=== PATIENT | male | born 1975 | race Caucasian/White ===

== ENCOUNTER 2017-05-31 11:11 | Inpatient (IN) | payer BC ==
[~2017-05-31 11:11] MED LIST: AMIODARONE 50 MG/ML 3 ML VIAL IV ONE; DEXTROSE 5% IN WATER 50 ML BAG ONE
[2017-05-31] MEDS ORDERED: SODIUM CHLORIDE 0.9% 1,000 ML IV STA (11:15)
[2017-05-31] MEDS ORDERED: NITROGLYCERIN SL TABS 0.4 MG TAB SUBLINGUAL PRN (11:15)
[2017-05-31] MEDS ORDERED: ASPIRIN 81 MG CHEW PO STA (11:15)
[2017-05-31] MEDS ORDERED: DEXTROSE 5% IN WATER 100 ML with AMIODARONE 150 MG IV ONE (11:17)
[2017-05-31] MEDS ORDERED: ASPIRIN 600 MG SUPP RECTAL STA (11:17)
[2017-05-31] MEDS ORDERED: AMIODARONE 450 MG in DEXTROSE 5% IN WATER 250 ML IV ONE ×2 (11:17)
[2017-05-31] MEDS: HEPARIN SODIUM,PORCINE 5,000 UNIT/ML 1 ML VIAL IV ONE ×2 (11:22→12:24)
--- NOTE | 2017-05-31 11:22 | ED ---
General Adult HPI - General Stated complaint: Cardiac Arrest Time Seen by Provider: 05/31/17 11:15 Source: RN notes reviewed, old records reviewed - History of Present Illness Initial comments: This is a 5-year-old male to the ER for evaluation. Patient's assay for evaluation of cardiac arrest. Unknown medical history patient is unable to give history secondary to severe clinical condition is reviewed from EMS. 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 EMS did find patient in V. fib did deliver defibrillation - Related Data Home Medications Medication Instructions Recorded Confirmed Aspirin 162 mg PO ONCE 05/31/17 05/31/17 Allergies Allergy/AdvReac Type Severity Reaction Status Date / Time Unable to Assess Allergy Verified 05/31/17 11:39 Review of Systems ROS Statement: Those systems with pertinent positive or pertinent negative responses have been documented in the HPI. ROS Other: All systems not noted in ROS Statement are negative. General Exam General appearance: alert, in no apparent distress Head exam: Present: atraumatic, normocephalic, normal inspection Eye exam: Present: normal appearance, PERRL, EOMI. Absent: scleral icterus, conjunctival injection, periorbital swelling ENT exam: Present: normal exam, mucous membranes moist Neck exam: Present: normal inspection. Absent: tenderness, meningismus, lymphadenopathy Respiratory exam: Present: normal lung sounds bilaterally. Absent: respiratory distress, wheezes, rales, rhonchi, stridor Cardiovascular Exam: Present: regular rate, normal rhythm, normal heart sounds. Absent: systolic murmur, diastolic murmur, rubs, gallop, clicks GI/Abdominal exam: Present: soft, normal bowel sounds. Absent: distended, tenderness, guarding, rebound, rigid Extremities exam: Present: normal inspection, full ROM, normal capillary refill. Absent: tenderness, pedal edema, joint swelling, calf tenderness Back exam: Present: normal inspection Neurological exam: Present: alert, oriented X3, CN II-XII intact Psychiatric exam: Present: normal affect, normal mood Skin exam: Present: warm, dry, intact, normal color. Absent: rash Course - Reevaluation(s) Reevaluation #1: 05/31/17 11:[address] elevation ID paged, patient was of the same arrest patient construction is transported to Hospital EKG Findings - EKG Comments: EKG Findings:: EKG does show ST elevation anterior lateral Procedures - Intubation Tube Placement Confirmation: confirmation by capnometry Patient Tolerated Procedure: well, no complications Intubation Complications: none Medical Decision Making - Medical Decision Making 41 [facility] ER for evaluation regarding cardiac arrest, patient was phonetic yesterday over to my which led to a V. fib arrest, patient was cardioverted transferred to emergency room maintained pulses throughout stay. 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 - Lab Data Result diagrams: 05/31/17 11:18 05/31/17 11:18 Lab Results 05/31/17 05/31/17 05/31/17 Range/Units 11:18 11:18 11:18 WBC 16.2 H (3.8-10.6) k/uL RBC 5.38 (4.30-5.90) m/uL Hgb 17.2 (13.0-17.5) gm/dL Hct 52.8 (39.0-53.0) % MCV 98.1 (80.0-100.0) fL MCH 32.0 (25.0-35.0) pg MCHC 32.7 (31.0-37.0) g/dL RDW 14.6 (11.5-15.5) % Plt Count 300 (150-450) k/uL PT (9.0-12.0) sec INR (<1.2) APTT (22.0-30.0) sec Sodium 145 (137-145) mmol/L Potassium 4.2 (3.5-5.1) mmol/L Chloride 108 H (98-107) mmol/L Carbon Dioxide 13 L (22-30) mmol/L Anion Gap 24 mmol/L BUN 9 (9-20) mg/dL Creatinine 1.39 H (0.66-1.25) mg/dL Est GFR (MDRD) Af Amer >60 (>60 ml/min/1.73 sqM) Est GFR (MDRD) Non-Af 57 (>60 ml/min/1.73 sqM) Glucose 219 H (74-99) mg/dL Calcium 9.8 (8.4-10.2) mg/dL Total Bilirubin 0.5 (0.2-1.3) mg/dL AST 52 (17-59) U/L ALT 89 H (21-72) U/L Alkaline Phosphatase 105 (38-126) U/L Total Creatine Kinase 212 H (55-170) U/L Total Protein 7.7 (6.3-8.2) g/dL Albumin 4.8 (3.5-5.0) g/dL 05/31/17 Range/Units 11:18 WBC (3.8-10.6) k/uL RBC (4.30-5.90) m/uL Hgb (13.0-17.5) gm/dL Hct (39.0-53.0) % MCV (80.0-100.0) fL MCH (25.0-35.0) pg MCHC (31.0-37.0) g/dL RDW (11.5-15.5) % Plt Count (150-450) k/uL PT 10.4 (9.0-12.0) sec INR 1.0 (<1.2) APTT 24.9 (22.0-30.0) sec Sodium (137-145) mmol/L Potassium (3.5-5.1) mmol/L Chloride (98-107) mmol/L Carbon Dioxide (22-30) mmol/L Anion Gap mmol/L BUN (9-20) mg/dL Creatinine (0.66-1.25) mg/dL Est GFR (MDRD) Af Amer (>60 ml/min/1.73 sqM) Est GFR (MDRD) Non-Af (>60 ml/min/1.73 sqM) Glucose (74-99) mg/dL Calcium (8.4-10.2) mg/dL Total Bilirubin (0.2-1.3) mg/dL AST (17-59) U/L ALT (21-72) U/L Alkaline Phosphatase (38-126) U/L Total Creatine Kinase (55-170) U/L Total Protein (6.3-8.2) g/dL Albumin (3.5-5.0) g/dL - Radiology Data Radiology results: report reviewed (Chest x-ray negative), image reviewed Critical Care Time Critical Care Time: Yes Total Critical Care Time: 31 Disposition Clinical Impression: STEMI (ST elevation myocardial infarction), Cardiopulmonary arrest with successful resuscitation, Ventricular fibrillation Disposition: ADMITTED IP TO THIS [facility] Condition: Critical
[2017-05-31 11:30] LABS: CH 32.5; CHCM 33.4; HCT 52.8 % (39.0-53.0); HDW 2.97; HGB 17.2 gm/dL (13.0-17.5); MCHC 32.7 g/dL (31.0-37.0); MCV 98.1 fL (80.0-100.0); Mean Platelet Volume 7.5; RBC 5.38 m/uL (4.30-5.90); RDW 14.6 % (11.5-15.5); WBC 16.2 k/uL (3.8-10.6)
[2017-05-31] MEDS ORDERED: MIDAZOLAM (PF) 1 MG/ML 5 ML VIAL IV STA (11:31)
[2017-05-31 11:40] LABS: ALT 89 U/L (21-72); AST 52 U/L (17-59); Alkaline Phosphatase 105 U/L (38-126); Anion Gap 24 mmol/L; Blood Urea Nitrogen 9 mg/dL (9-20); Calcium 9.8 mg/dL (8.4-10.2); Carbon Dioxide 13 mmol/L (22-30); Chloride 108 mmol/L (98-107); Glucose 219 mg/dL (74-99); Non-African American GFR(MDRD) 57 (>60 ml/min/1.73 sqM); Partial Thromboplastin Time 24.9 sec (22.0-30.0); Potassium 4.2 mmol/L (3.5-5.1); Prothrombin Time 10.4 sec (9.0-12.0); Sodium 145 mmol/L (137-145); Total Bilirubin 0.5 mg/dL (0.2-1.3); Total Protein 7.7 g/dL (6.3-8.2)
--- NOTE | 2017-05-31 11:53 | XR ---
EXAMINATION TYPE: XR chest 1V portable DATE OF EXAM: 05/31/2017 COMPARISON: NONE HISTORY: Chest pain myocardial infarction TECHNIQUE: Single frontal view of the chest is obtained. FINDINGS: There is an overlying backboard. Endotracheal tube is overlying the tracheal air column co ursing towards the right mainstem bronchus in appropriate position, the magalis is not well seen howev er. There is overlying artifact. No evident pneumothorax or pleural effusion. Heart size within alicia l limits. No evident airspace disease. Exam is expiratory and apical lordotic. IMPRESSION: Endotracheal tube is overlying the tracheal air column, magalis is not well seen. Tube ap pears to be in appropriate position, follow-up is recommended. Overlying artifact.
[2017-05-31] MEDS ORDERED: LIDOCAINE 2% INJ 20 MG/ML SQ ONE (11:54)
[2017-05-31] MEDS ORDERED: NOREPINEPHRIN 16 MG-0.9%NS PMX 16 MG/250 ML ML IV ONE (11:59)
[2017-05-31] MEDS ORDERED: BIVALIRUDIN BOLUS 250 MG/50 ML IV ONE (12:03)
[2017-05-31] MEDS ORDERED: BIVALIRUDIN 250 MG in SODIUM CHLORIDE 0.9% 50 ML IV ONE (12:03)
--- NOTE | 2017-05-31 12:04 | CONS ---
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 Within about 4 to 5 minutes, EMS arrived and they found him in ventricular fibrillation. He required two shocks to defibrillate him to sinus rhythm. He was brought to the emergency room. He was intubated en route. The first 12 lead ECG here shows ST elevation, V2 through V6 and Lead 1 and AVL and there is ( )ST depression in the inferior leads. His heart rate is 156 beats a minute. He is intubated at this time. His pupils seem mildly dilated, partially reactive. He is moving all four extremities. I do not get any other history. PAST HISTORY: Not known at this time but apparently he did have ask for aspirins this morning. REVIEW OF SYSTEMS: Not available. ALLERGIES: Not available. PRIOR MEDICATION LIST: Not available at this time. I did speak to his brother who is in the surgical waiting area and I informed him of his condition and that we will take him to the lab. On examination, he is in sinus tachycardia. His blood pressure is about 113 mmHg systolic. Breath sounds are reduced bilaterally. Heart sounds are soft. No murmurs audible. IMPRESSION: Acute anterior wall infarct, total duration since he collapsed has been about 40 minutes when I saw him. 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 I spoke to Dr. Lily Triplett. I spoke to the ER physician. I spoke to the patient s brother. The rest of the family has not arrived. The patient received IV amiodarone bolus. He also received he is on IV heparin. He received per rectal aspirin. An NG was being placed when I was examining him. Further details of history will be available once his family arrives. AURA
[2017-05-31] MEDS ORDERED: LIDOCAINE (PF) 10 MG/ML 5ML AMP IV ONE (12:15)
[2017-05-31] MEDS ORDERED: LIDOCAINE 2% SYG (PF) 100 MG/5 ML IV ONE (12:15)
[2017-05-31] MEDS ORDERED: MORPHINE SULFATE 4 MG/ML SYRINGE IV ONE (12:16)
[2017-05-31] MEDS ORDERED: MAGNESIUM SULFATE-D5W PMX 1 GM in DEXTROSE/WATER 1 100ML.BAG IVPB ONE (12:17)
[2017-05-31] MEDS ORDERED: MORPHINE SULFATE 4 MG/ML SYRINGE IVP STA (12:19)
[2017-05-31] MEDS ORDERED: PROPOFOL 1,000 MG/100 ML VIAL IV ONE (12:19)
[2017-05-31] MEDS ORDERED: NITROGLYCERIN 1000MCG/10ML SYRINGE INTRACORON ONE (12:20)
[2017-05-31] MEDS ORDERED: niCARdipine Syringe (1,000 mcg/10 mL) INTRACORON ONE (12:27)
[2017-05-31] MEDS ORDERED: PRASUGREL 10 MG TAB NG-TUBE ONE (12:30)
[2017-05-31 12:31] LABS: Creatine Kinase MB 2.7 ng/mL (0.0-2.4); Troponin I 0.691 ng/mL (0.000-0.034)
[2017-05-31] MEDS ORDERED: TIROFIBAN 12.5MG-250ML NS 250 ML IV ONE (12:32)
[2017-05-31] MEDS ORDERED: IOHEXOL 350 MG/ML 125ML BOTTLE INJ ONE (12:53)
[2017-05-31] MEDS ORDERED: MAGNESIUM SULFATE-D5W PMX 1 GM/100 ML BAG IVPB ONE (12:57)
[2017-05-31] MEDS ORDERED: SODIUM CHLORIDE 0.9% 1,000 ML IV ONE ×2 (13:00→13:02)
[2017-05-31] MEDS ORDERED: ATROPINE SULFATE 0.1 MG/ML 10ML SYRINGE IV PRN (13:11)
[2017-05-31] MEDS ORDERED: RX INFO: IV CONTRAST WAS GIVEN 1 EACH MISC MISCELLANE PRN (13:11)
[2017-05-31] MEDS ORDERED: TIROFIBAN 12.5MG-250ML NS 250 ML IV SCH (13:15)
--- NOTE | 2017-05-31 13:45 | P.CNPUL ---
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 He apparently collapsed and was brought into the emergency room and cardiopulmonary arrest. He apparently had ventricular fibrillation was defibrillated and resuscitated. Taken directly to the catheterization lab where he was found to have a totally occluded LAD. A stent was placed. He is back to the ICU on mechanical breath ventilator. Current settings are the assist control mode rate of 14 tidal Lyme 550 FiO2 100% PEEP of 5. Her bumped her rate up to 20 and 10 of I'm down to 450. Keep the FiO2 100% PEEP of 5. The patient's skin the patient will have on DuoNeb's ordered. The patient's currently running on some Aggrastat and IV fluids. The patient has a smoking history. Apparently was only taking aspirin at home. Review of Systems ROS unobtainable: due to endotracheal tube Past Medical History Past Medical History: Unable to Obtain History of Any Multi-Drug Resistant Organisms: Unobtainable Past Surgical History: Unable to Obtain Past Psychological History: Unable to Obtain Smoking Status: Unknown if ever smoked Past Alcohol Use History: Unable to Obtain Past Drug Use History: Unable to Obtain Medications and Allergies Home Medications Medication Instructions Recorded Confirmed Type Aspirin 162 mg PO ONCE 05/31/17 05/31/17 History Allergies Allergy/AdvReac Type Severity Reaction Status Date / Time Unable to Assess Allergy Verified 05/31/17 11:39 Physical Exam Osteopathic Statement: *. No significant issues noted on an osteopathic structural exam other than those noted in the History and Physical/Consult. Vitals: Vital Signs Pulse Resp BP Pulse Ox 05/31/17 11:45 124 H 12 116/74 98 05/31/17 11:35 108 H 12 154/86 98 05/31/17 11:27 130 H 12 113/78 98 05/31/17 11:21 158 H 12 133/88 98 05/31/17 11:16 164 H 12 135/97 98 Intake and Output 05/30/17 05/31/17 05/31/17 22:59 06:59 14:59 Intake Total 298.7 Balance 298.7 Intake: IV 298.7 Other: Weight 111.085 kg Patient Weight 06/01/17 06:59 Weight 111.085 kg No acute distress, has an orally placed endotracheal tube and NG tube. HEENT examination is grossly unremarkable. Neck supple. Full range of motion. Heart and vascular examination reveals regular rhythm rate. S1-S2 normal. No S3-S4 or murmur. Lungs reveal a few scattered rhonchi. Her sounds are diminished. Extremities are intact. Skin without rash. Neurologic examination cannot be performed. Results - Laboratory Findings CBC and BMP: 05/31/17 11:18 05/31/17 11:18 PT/INR, D-dimer PT 10.4 sec (9.0-12.0) 05/31/17 11:18 INR 1.0 (<1.2) 05/31/17 11:18 Abnormal lab findings: Abnormal Labs 05/31/17 05/31/17 05/31/17 11:18 11:18 11:18 WBC 16.2 H Chloride 108 H Carbon Dioxide 13 L Creatinine 1.39 H Glucose 219 H ALT 89 H Total Creatine Kinase 212 H CK-MB (CK-2) 2.7 H* Troponin I 0.691 H* - Diagnostic Findings Chest x-ray: image reviewed (Labs x-rays a medications are all reviewed.) Assessment and Plan (1) Nicotine addiction Status: Acute (2) Cardiopulmonary arrest with successful resuscitation Status: Acute (3) STEMI (ST elevation myocardial infarction) Status: Acute (4) Ventricular fibrillation Status: Acute (5) Stented coronary artery Status: Acute Plan: Plan dated 05/31/2017 The patient ventilator we switched to the to a rate of 20 and a tidal Lyme at 450. I've asked Sveta the respiratory therapist to get a blood gas. We'll had doing nebs every 4 [id number]. The patient be watched very closely. Additional recommendations suggestions are forthcoming.
[2017-05-31] MEDS ORDERED: IPRATROPIUM-ALBUTEROL 3 ML NEB INHALATION PRN (13:46)
[2017-05-31 13:49] LABS: Cholesterol 176 mg/dL (<200); HDL Cholesterol 48 mg/dL (40-60)
[2017-05-31 13:52] LABS: Glucose,Whole Blood 148 mg/dL (75-99)
[2017-05-31 14:07] LABS: ABG PCO2 41 mmHg (35-45); ABG PH 7.36 (7.35-7.45)
[2017-05-31 14:08] LABS: ABG Base Excess -2.1 mmol/L; ABG HCO3 23 mmol/L (21-25); ABG Oxygen Saturation 99.4 % (94-97); ABG PO2 162 mmHg (83-108); ABG TCO2 24 mmol/L (19-24)
[2017-05-31] MEDS: SODIUM CHLORIDE 0.9% 1,000 ML IV SCH ×2 (14:26)
[2017-05-31] MEDS ORDERED: THIAMINE 100 MG/ML 2 ML VIAL IM STA (14:47)
[2017-05-31] MEDS: PROPOFOL 1,000 MG/100 ML VIAL IV SCH ×4 (15:04→22:31)
[2017-05-31] MEDS ORDERED: NALOXONE 0.4 MG/ML 1 ML VIAL IV PRN (15:16)
[2017-05-31] MEDS: IPRATROPIUM-ALBUTEROL 3 ML NEB INHALATION SCH ×2 (15:23→18:54)
[2017-05-31 15:48] LABS: Appearance,Urine Clear (Clear); Bilirubin,Urine Negative (Negative); Glucose,Urine (UA) Negative (Negative); Ketones,Urine Negative (Negative); Leukocyte Esterase,Urine Negative (Negative); Nitrite,Urine Negative (Negative); Particle Count 1581; Protein,Urine 2+ (Negative); RBC,Urine 12 /hpf (0-5); UA Billing (MACRO vs. MICRO) MICRO; Urobilinogen,Urine <2.0 mg/dL (<2.0)
[2017-05-31 15:49] LABS: Specific Gravity,Urine >1.050 (1.001-1.035)
[2017-05-31] MEDS: THIAMINE 100 MG TAB PO SCH (17:04)
[2017-05-31] MEDS: HEPARIN SODIUM,PORCINE 5,000 UNIT/ML 1 ML VIAL SQ SCH (17:05)
--- NOTE | 2017-05-31 18:21 | XR ---
EXAMINATION TYPE: XR chest 1V portable DATE OF EXAM: 05/31/2017 COMPARISON: Today HISTORY: Tube placement TECHNIQUE: Single frontal view of the chest is obtained. FINDINGS: Endotracheal tube appears in good position. There is a nasogastric tube in good position i n the gastric antrum. There is mild pulmonary vascular congestion. There are chest leads. IMPRESSION: Endotracheal tube is in good position. There is suggestion of mild pulmonary interstitia l edema that is new compared to exam this morning.
[2017-05-31] MEDS ORDERED: FUROSEMIDE 10 MG/ML 4 ML VIAL IV STA (18:29)
[2017-05-31] MEDS: HYDROmorphone 1 MG/ML 1 ML SYRINGE IVP PRN (20:35)
[2017-05-31] MEDS ORDERED: ATORVASTATIN 40 MG TAB OG-TUBE SCH (21:00)
[2017-05-31] MEDS ORDERED: AMIODARONE 450 MG in DEXTROSE 5% IN WATER 250 ML IV SCH ×2 (21:00)
[2017-05-31] MEDS: CHLORHEXIDINE GLUCONATE 15 ML CUP MUCOUS MEM SCH (22:32)
[2017-06-01] MEDS: IPRATROPIUM-ALBUTEROL 3 ML NEB INHALATION SCH ×7 (00:02→22:55)
[2017-06-01] MEDS: PROPOFOL 1,000 MG/100 ML VIAL IV SCH ×3 (04:00→10:04)
[2017-06-01 05:31] LABS: ABG Base Excess 0.6 mmol/L; ABG HCO3 24 mmol/L (21-25); ABG Oxygen Saturation 98.8 % (94-97); ABG PCO2 35 mmHg (35-45); ABG PH 7.46 (7.35-7.45); ABG PO2 116 mmHg (83-108); ABG TCO2 25 mmol/L (19-24)
[2017-06-01 05:48] LABS: Basophils # (A) 0.1 k/uL (0-0.2); Basophils % (A) 0 %; CH 33.1; Eosinophils # (A) 0.1 k/uL (0-0.7); Eosinophils % (A) 0 %; HCT 47.6 % (39.0-53.0); HDW 2.92; Luc # (Auto) 0.29; Luc % (Auto) 2; Lymphocytes # (A) 3.3 k/uL (1.0-4.8); Lymphocytes % (A) 19 %; MCH 31.9 pg (25.0-35.0); MCHC 33.5 g/dL (31.0-37.0); MCV 95.2 fL (80.0-100.0); Mean Platelet Volume 7.3; Monocytes # (A) 0.8 k/uL (0-1.0); Monocytes % (A) 5 %; Neutrophils # (A) 13.5 k/uL (1.3-7.7); Neutrophils % (A) 75 %; RDW 14.9 % (11.5-15.5); WBC (Perox) 17.19
[2017-06-01] MEDS: HYDROmorphone 1 MG/ML 1 ML SYRINGE IVP PRN ×5 (06:15→22:30)
[2017-06-01 06:48] LABS: ALT 147 U/L (21-72); AST 258 U/L (17-59); Alkaline Phosphatase 94 U/L (38-126); Anion Gap 7 mmol/L; Blood Urea Nitrogen 13 mg/dL (9-20); Calcium 8.4 mg/dL (8.4-10.2); Carbon Dioxide 24 mmol/L (22-30); Chloride 107 mmol/L (98-107); Cholesterol 169 mg/dL (<200); Glucose 113 mg/dL (74-99); HDL Cholesterol 44 mg/dL (40-60); Magnesium 1.9 mg/dL (1.6-2.3); Non-African American GFR(MDRD) >60 (>60 ml/min/1.73 sqM); Phosphorous 3.8 mg/dL (2.5-4.5); Potassium 4.4 mmol/L (3.5-5.1); Sodium 138 mmol/L (137-145); Total Bilirubin 0.8 mg/dL (0.2-1.3); Total Protein 6.3 g/dL (6.3-8.2)
[2017-06-01] MEDS: SODIUM CHLORIDE 0.9% 1,000 ML IV SCH ×2 (06:57→14:31)
[2017-06-01] MEDS: HEPARIN SODIUM,PORCINE 5,000 UNIT/ML 1 ML VIAL SQ SCH ×3 (06:58→16:57)
[2017-06-01 07:14] LABS: Appearance,Urine Turbid (Clear); Bilirubin,Urine Negative (Negative); Glucose,Urine (UA) Negative (Negative); Ketones,Urine Negative (Negative); Leukocyte Esterase,Urine Small (Negative); Nitrite,Urine Negative (Negative); PH, Urine 5.5 (5.0-8.0); Particle Count 136186; Protein,Urine 2+ (Negative); RBC,Urine >182 /hpf (0-5); Specific Gravity,Urine 1.027 (1.001-1.035); UA Billing (MACRO vs. MICRO) MICRO; Urobilinogen,Urine <2.0 mg/dL (<2.0); WBC,Urine 49 /hpf (0-5)
[2017-06-01] MEDS: MAGNESIUM SULFATE-D5W PMX 1 GM in DEXTROSE/WATER 1 100ML.BAG IVPB SCH ×2 (07:42→09:04)
[2017-06-01] MEDS: PANTOPRAZOLE 40 MG/10 ML VIAL IVP SCH (08:04)
[2017-06-01] MEDS: PRASUGREL 10 MG TAB PO SCH (08:05)
[2017-06-01] MEDS: CHLORHEXIDINE GLUCONATE 15 ML CUP MUCOUS MEM SCH ×2 (08:05→20:41)
[2017-06-01] MEDS: ASPIRIN 325 MG TAB PO SCH (08:05)
--- NOTE | 2017-06-01 08:11 | XR ---
EXAMINATION TYPE: XR chest 1V DATE OF EXAM: 06/01/2017 COMPARISON: Prior chest x-ray 05/31/2017 HISTORY: Intubated TECHNIQUE: Single frontal view of the chest is obtained. FINDINGS: Endotracheal and NG tube are overlying appropriate positions. No pneumothorax or pleural e ffusion. Retrocardiac density is present, heart size is normal. IMPRESSION: Probable left lower lobe atelectasis, correlate to exclude pneumonia. Follow-up recommen ded.
[2017-06-01] MEDS ORDERED: ATROPINE SULFATE 0.1 MG/ML 10ML SYRINGE ONE (08:29)
[2017-06-01] MEDS ORDERED: CISATRACURIUM 2 MG/ML 5 ML VIAL IV ONE (08:55)
[2017-06-01 09:05] LABS: Hemoglobin A1C 5.3 % (4.2-6.1)
[2017-06-01 09:11] LABS: Glucose,Whole Blood 175 mg/dL (75-99)
[2017-06-01] MEDS: INSULIN LISPRO (humaLOG) 300 UNIT/3 ML VIAL SQ SCH ×3 (09:22→20:42)
[2017-06-01] MEDS: DEXMEDETOMIDINE/0.9% NACL(PMX) 400 MCG in EMPTY BAG 1 BAG IV SCH ×3 (09:36→20:29)
--- NOTE | 2017-06-01 10:07 | P.PN ---
Subjective Progress note dated 06/01/2017 This is a 41-year-old male who has no major medical history. He apparently had a cardiopulmonary arrest while worsening over the hospital. The patient apparently had ventricular fibrillation was defibrillated. He was resuscitated taken to the label fuser tender. Catheterization revealed a totally occluded LAD and he had a stent placed. He is currently here on the ventilator. We tried weaning him this morning. We stopped his propofol. He became very agitated. The patient is currently still on the ventilator. We had to sedate him further with Precedex or dexmedetomidine and also give him a paralytic agent Nimbex. Currently the patient's on the ventilator. He's on the assist control mode at 20, [place] for 50 FiO2 up to 100% PEEP increased to 10. We'll titrate the FiO2 down. Blood gases showed a pO2 of 116 a pCO2 35 and a pH 7.46. This is consistent with hyperoxemia and a mild respiratory alkalosis. The patient's on Precedex currently appointment for mics. The propofol will be turned off. He is getting 9 IV at 75 mL an hour. Amiodarone is been turned off. We'll get some tube feeds started. Objective - Vital Signs Vital signs: Vital Signs Temp 99.4 F 06/01/17 07:30 Pulse 93 06/01/17 09:30 Resp 22 06/01/17 09:30 BP 117/75 06/01/17 09:30 Pulse Ox 93 L 06/01/17 09:30 Intake & Output 05/31/17 06/01/17 06/01/17 18:59 06:59 18:59 Intake Total 7381.950 4110.808 351.986 Output Total 295 1245 965 Balance 751.100 2.808 -613.014 Weight 97.8 kg 99.3 kg 99.3 kg Intake: IV 798.7 925 150 Sodium Chloride 0.9% 1, 500 925 150 000 ml @ 100 mls/hr IV . Q10H STA Rx#:[id number] Intake, IV Titration 247.400 322.808 201.986 Amount Amiodarone 450 mg In 99.9 Dextrose 5% in Water 250 ml @ 1 MG/MIN 34.53 mls/ hr IV .Q7H31M ONE Rx#: [id number] Dexmedetomidine/0.9% NaCl 1.986 (Pmx) 400 mcg In Empty Bag 1 bag @ Titrate IV . Q0M JENELLE Rx#:[id number] Magnesium Sulfate-D5w Pmx 100 1 gm In Dextrose/Water 1 100ml.bag @ 100 mls/hr IVPB Q1H JENELLE Rx#: [id number] Propofol 1,000 mg In 100 100.000 313.308 100.000 ml @ Titrate IV .Q0M JENELLE Rx#:[id number] Tirofiban 12.5MG-250Ml Ns 38.0 9.5 250 ml @ 0.075 MCG/KG/ MIN 9.998 mls/hr IV .Q24H JENELLE Rx#:[id number] Tirofiban 12.5MG-250Ml Ns 9.5 250 ml As IV .[employer] ONE Rx#:[id number] Output: Gastric Drainage 900 Urine 295 1245 65 Other: Voiding Method Indwelling Catheter Indwelling Catheter - Exam No acute distress, not oriented. Currently sedated. Has a nasally place NG tube and an orally placed endotracheal tube. HEENT examination is grossly unremarkable. Neck supple. Full range of motion. Cardiovascular examination reveals regular rhythm rate. S1-S2 normal. No murmur. Lungs reveal few scattered rhonchi. Breath sounds are diminished. Abdomen soft bowel sounds are heard. Extremities are intact. No cyanosis clubbing or edema. Skin without rash. Neurologic examination cannot be adequately performed. - Labs CBC & Chem 7: 06/01/17 05:35 06/01/17 05:35 Labs: Abnormal Lab Results - Last 24 Hours (Table) 05/31/17 05/31/17 05/31/17 Range/Units 11:18 11:18 11:18 WBC 16.2 H (3.8-10.6) k/uL Neutrophils # (1.3-7.7) k/uL ABG pH (7.35-7.45) ABG pO2 (83-108) mmHg ABG Total CO2 (19-24) mmol/L ABG O2 Saturation (94-97) % Chloride 108 H (98-107) mmol/L Carbon Dioxide 13 L (22-30) mmol/L Creatinine 1.39 H (0.66-1.25) mg/dL Glucose 219 H (74-99) mg/dL POC Glucose (mg/dL) (75-99) mg/dL Magnesium (1.6-2.3) mg/dL AST (17-59) U/L ALT 89 H (21-72) U/L Total Creatine Kinase 212 H (55-170) U/L CK-MB (CK-2) 2.7 H* (0.0-2.4) ng/mL Troponin I 0.691 H* (0.000-0.034) ng/mL Triglycerides (<150) mg/dL TSH (0.465-4.680) mIU/L Ur Specific Wirtz (1.001-1.035) Urine Protein (Negative) Urine Blood (Negative) Ur Leukocyte Esterase (Negative) Urine RBC (0-5) /hpf Urine WBC (0-5) /hpf Urine Opiates Screen (NotDetected) U Marijuana (THC) Screen (NotDetected) 05/31/17 05/31/17 05/31/17 Range/Units 11:18 13:25 13:33 WBC (3.8-10.6) k/uL Neutrophils # (1.3-7.7) k/uL ABG pH (7.35-7.45) ABG pO2 (83-108) mmHg ABG Total CO2 (19-24) mmol/L ABG O2 Saturation (94-97) % Chloride (98-107) mmol/L Carbon Dioxide (22-30) mmol/L Creatinine (0.66-1.25) mg/dL Glucose (74-99) mg/dL POC Glucose (mg/dL) 148 H (75-99) mg/dL Magnesium 2.4 H (1.6-2.3) mg/dL AST (17-59) U/L ALT (21-72) U/L Total Creatine Kinase (55-170) U/L CK-MB (CK-2) (0.0-2.4) ng/mL Troponin I (0.000-0.034) ng/mL Triglycerides 203 H (<150) mg/dL TSH (0.465-4.680) mIU/L Ur Specific Wirtz (1.001-1.035) Urine Protein (Negative) Urine Blood (Negative) Ur Leukocyte Esterase (Negative) Urine RBC (0-5) /hpf Urine WBC (0-5) /hpf Urine Opiates Screen (NotDetected) U Marijuana (THC) Screen (NotDetected) 05/31/17 05/31/17 05/31/17 Range/Units 14:00 15:30 17:07 WBC (3.8-10.6) k/uL Neutrophils # (1.3-7.7) k/uL ABG pH (7.35-7.45) ABG pO2 162 H (83-108) mmHg ABG Total CO2 (19-24) mmol/L ABG O2 Saturation 99.4 H (94-97) % Chloride (98-107) mmol/L Carbon Dioxide (22-30) mmol/L Creatinine (0.66-1.25) mg/dL Glucose (74-99) mg/dL POC Glucose (mg/dL) (75-99) mg/dL Magnesium (1.6-2.3) mg/dL AST (17-59) U/L ALT (21-72) U/L Total Creatine Kinase 6143 H (55-170) U/L CK-MB (CK-2) 299.0 H* (0.0-2.4) ng/mL Troponin I 186.000 H* (0.000-0.034) ng/mL Triglycerides (<150) mg/dL TSH (0.465-4.680) mIU/L Ur Specific Wirtz >1.050 H (1.001-1.035) Urine Protein 2+ H (Negative) Urine Blood Moderate H (Negative) Ur Leukocyte Esterase (Negative) Urine RBC 12 H (0-5) /hpf Urine WBC (0-5) /hpf Urine Opiates Screen (NotDetected) U Marijuana (THC) Screen (NotDetected) 05/31/17 05/31/17 06/01/17 Range/Units 21:15 22:41 05:25 WBC (3.8-10.6) k/uL Neutrophils # (1.3-7.7) k/uL ABG pH 7.46 H (7.35-7.45) ABG pO2 116 H (83-108) mmHg ABG Total CO2 25 H (19-24) mmol/L ABG O2 Saturation 98.8 H (94-97) % Chloride (98-107) mmol/L Carbon Dioxide (22-30) mmol/L Creatinine (0.66-1.25) mg/dL Glucose (74-99) mg/dL POC Glucose (mg/dL) (75-99) mg/dL Magnesium (1.6-2.3) mg/dL AST (17-59) U/L ALT (21-72) U/L Total Creatine Kinase 5272 H (55-170) U/L CK-MB (CK-2) 183.0 H* (0.0-2.4) ng/mL Troponin I 158.000 H* (0.000-0.034) ng/mL Triglycerides (<150) mg/dL TSH (0.465-4.680) mIU/L Ur Specific Wirtz (1.001-1.035) Urine Protein (Negative) Urine Blood (Negative) Ur Leukocyte Esterase (Negative) Urine RBC (0-5) /hpf Urine WBC (0-5) /hpf Urine Opiates Screen Detected H (NotDetected) U Marijuana (THC) Screen Detected H (NotDetected) 06/01/17 06/01/17 06/01/17 Range/Units 05:35 05:35 05:35 WBC 18.0 H (3.8-10.6) k/uL Neutrophils # 13.5 H (1.3-7.7) k/uL ABG pH (7.35-7.45) ABG pO2 (83-108) mmHg ABG Total CO2 (19-24) mmol/L ABG O2 Saturation (94-97) % Chloride (98-107) mmol/L Carbon Dioxide (22-30) mmol/L Creatinine (0.66-1.25) mg/dL Glucose 113 H (74-99) mg/dL POC Glucose (mg/dL) (75-99) mg/dL Magnesium (1.6-2.3) mg/dL AST 258 H (17-59) U/L ALT 147 H (21-72) U/L Total Creatine Kinase (55-170) U/L CK-MB (CK-2) (0.0-2.4) ng/mL Troponin I 90.300 H* (0.000-0.034) ng/mL Triglycerides 237 H (<150) mg/dL TSH 0.348 L (0.465-4.680) mIU/L Ur Specific Wirtz (1.001-1.035) Urine Protein (Negative) Urine Blood (Negative) Ur Leukocyte Esterase (Negative) Urine RBC (0-5) /hpf Urine WBC (0-5) /hpf Urine Opiates Screen (NotDetected) U Marijuana (THC) Screen (NotDetected) 06/01/17 06/01/17 Range/Units 06:45 09:10 WBC (3.8-10.6) k/uL Neutrophils # (1.3-7.7) k/uL ABG pH (7.35-7.45) ABG pO2 (83-108) mmHg ABG Total CO2 (19-24) mmol/L ABG O2 Saturation (94-97) % Chloride (98-107) mmol/L Carbon Dioxide (22-30) mmol/L Creatinine (0.66-1.25) mg/dL Glucose (74-99) mg/dL POC Glucose (mg/dL) 175 H (75-99) mg/dL Magnesium (1.6-2.3) mg/dL AST (17-59) U/L ALT (21-72) U/L Total Creatine Kinase (55-170) U/L CK-MB (CK-2) (0.0-2.4) ng/mL Troponin I (0.000-0.034) ng/mL Triglycerides (<150) mg/dL TSH (0.465-4.680) mIU/L Ur Specific Wirtz (1.001-1.035) Urine Protein 2+ H (Negative) Urine Blood Large H (Negative) Ur Leukocyte Esterase Small H (Negative) Urine RBC >182 H (0-5) /hpf Urine WBC 49 H (0-5) /hpf Urine Opiates Screen (NotDetected) U Marijuana (THC) Screen (NotDetected) Assessment and Plan (1) Nicotine addiction Status: Acute (2) Cardiopulmonary arrest with successful resuscitation Status: Acute (3) STEMI (ST elevation myocardial infarction) Status: Acute (4) Ventricular fibrillation Status: Acute (5) Stented coronary artery Status: Acute Plan: Plan dated 05/31/2017 The patient ventilator we switched to the to a rate of 20 and a tidal Lyme at 450. I've asked Sveta the respiratory therapist to get a blood gas. We'll had doing nebs every 4 [id number]. The patient be watched very closely. Additional recommendations suggestions are forthcoming. Progress note dated 06/01/2017 The patient will get an EEG and will send the patient for CT of the brain. The patient's will have tube feeds started. We'll get dietary involved. Currently we'll DC the propofol and put him on Precedex. The patient's FiO2 was increased to 100%. We bumped PEEP up to 10. We'll start titrating the FiO2 down. Additional recommendations and suggestions are forthcoming. Prognosis is very guarded. I'm concerned about anoxic brain injury. Critical care time on this patient is 38 minutes. Time with Patient: Greater than 30
[2017-06-01] MEDS ORDERED: RX INFO: IV CONTRAST WAS GIVEN 1 EACH MISC MISCELLANE PRN (10:48)
--- NOTE | 2017-06-01 11:08 | P.PN ---
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 EMS was notified and he was found to be in ventricular fibrillation without a pulse. He had defibrillation 2 what appears to be return of spontaneous circulation. It is unclear exactly how long his down time was but it appears to be less than 10-15 minutes. Initial EKG showed ST segment elevation. He was brought to the ER and a code STEMI was called. 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 He was admitted to ICU and was intubated. He was found to have an elevated total cholesterol level , elevated liver enzymes, elevated creatinine. Critical care with consult for ventilator management. He was also noted to have a history of alcohol use. Patient seen and examined at bedside, currently on sedation holiday on vent, case discussed with nursing. No new events overnight. Patient was able to follow commands by showing me a thumbs up. He was redirectable. Patient's Nasrin called and updated on patient condition. [phone] Objective - Vital Signs Vital signs: Vital Signs Temp 99.4 F 06/01/17 07:30 Pulse 90 06/01/17 10:00 Resp 20 06/01/17 10:00 BP 97/52 06/01/17 10:00 Pulse Ox 96 06/01/17 10:00 Intake & Output 05/31/17 06/01/17 06/01/17 18:59 06:59 18:59 Intake Total 0529.202 7780.808 605.709 Output Total 295 1245 1030 Balance 751.100 2.808 -424.291 Weight 97.8 kg 99.3 kg 99.3 kg Intake: IV 798.7 925 300 Sodium Chloride 0.9% 1, 500 925 225 000 ml @ 100 mls/hr IV . Q10H [facility] Rx#:[id number] Sodium Chloride 0.9% 1, 75 000 ml @ 75 mls/hr IV . [id number] [facility] Rx#:[id number] Intake, IV Titration 247.400 322.808 305.709 Amount Amiodarone 450 mg In 99.9 Dextrose 5% in Water 250 ml @ 1 MG/MIN 34.53 mls/ hr IV .Q7H31M [facility] Rx#: [id number] Dexmedetomidine/0.9% NaCl 5.709 (Pmx) 400 mcg In Empty Bag 1 bag @ Titrate IV . Q0M [facility] Rx#:[id number] Magnesium Sulfate-D5w Pmx 200 1 gm In Dextrose/Water 1 100ml.bag @ 100 mls/hr IVPB Q1H [facility] Rx#: [id number] Propofol 1,000 mg In 100 100.000 313.308 100.000 ml @ Titrate IV .Q0M [facility] Rx#:[id number] Tirofiban 12.5MG-250Ml Ns 38.0 9.5 250 ml @ 0.075 MCG/KG/ MIN 9.998 mls/hr IV .Q24H [facility] Rx#:[id number] Tirofiban 12.5MG-250Ml Ns 9.5 250 ml As IV .STK-MED ONE Rx#:[id number] Output: Gastric Drainage 900 Urine 295 1245 130 Other: Voiding Method Indwelling Catheter Indwelling Catheter Indwelling Catheter - Exam General: non toxic, no distress, appears at stated age, sedated on vent Derm: no rashes, no lesions Head: atraumatic, normocephalic, symmetric Eyes: EOMI, no lid lag, anicteric sclera ENT: Intubated Mouth: no lip lesion, ET tube in place Cardiovascular: S1S2 reg, no murmur, positive posterior tibial pulse bilateral, Lungs: CTA bilateral, no rhonchi, no rales , no accessory muscle use Abdominal: soft, nontender to palpation, no guarding, no appreciable organomegaly Ext: no gross muscle atrophy, no edema, no contractures Neuro: CN II-XI grossly intact, no focal neuro deficits Psych: Awake, following commands, appears anxious, - Labs CBC & Chem 7: 06/01/17 05:35 06/01/17 05:35 Labs: Abnormal Lab Results - Last 24 Hours (Table) 05/31/17 05/31/17 05/31/17 Range/Units 11:18 11:18 11:18 WBC 16.2 H (3.8-10.6) k/uL Neutrophils # (1.3-7.7) k/uL ABG pH (7.35-7.45) ABG pO2 (83-108) mmHg ABG Total CO2 (19-24) mmol/L ABG O2 Saturation (94-97) % Chloride 108 H (98-107) mmol/L Carbon Dioxide 13 L (22-30) mmol/L Creatinine 1.39 H (0.66-1.25) mg/dL Glucose 219 H (74-99) mg/dL POC Glucose (mg/dL) (75-99) mg/dL Magnesium (1.6-2.3) mg/dL AST (17-59) U/L ALT 89 H (21-72) U/L Total Creatine Kinase 212 H (55-170) U/L CK-MB (CK-2) 2.7 H* (0.0-2.4) ng/mL Troponin I 0.691 H* (0.000-0.034) ng/mL Triglycerides (<150) mg/dL TSH (0.465-4.680) mIU/L Ur Specific [place] (1.001-1.035) Urine Protein (Negative) Urine Blood (Negative) Ur Leukocyte Esterase (Negative) Urine RBC (0-5) /hpf Urine WBC (0-5) /hpf Urine Opiates Screen (NotDetected) U Marijuana (THC) Screen (NotDetected) 05/31/17 05/31/17 05/31/17 Range/Units 11:18 13:25 13:33 WBC (3.8-10.6) k/uL Neutrophils # (1.3-7.7) k/uL ABG pH (7.35-7.45) ABG pO2 (83-108) mmHg ABG Total CO2 (19-24) mmol/L ABG O2 Saturation (94-97) % Chloride (98-107) mmol/L Carbon Dioxide (22-30) mmol/L Creatinine (0.66-1.25) mg/dL Glucose (74-99) mg/dL POC Glucose (mg/dL) 148 H (75-99) mg/dL Magnesium 2.4 H (1.6-2.3) mg/dL AST (17-59) U/L ALT (21-72) U/L Total Creatine Kinase (55-170) U/L CK-MB (CK-2) (0.0-2.4) ng/mL Troponin I (0.000-0.034) ng/mL Triglycerides 203 H (<150) mg/dL TSH (0.465-4.680) mIU/L Ur Specific [place] (1.001-1.035) Urine Protein (Negative) Urine Blood (Negative) Ur Leukocyte Esterase (Negative) Urine RBC (0-5) /hpf Urine WBC (0-5) /hpf Urine Opiates Screen (NotDetected) U Marijuana (THC) Screen (NotDetected) 05/31/17 05/31/17 05/31/17 Range/Units 14:00 15:30 17:07 WBC (3.8-10.6) k/uL Neutrophils # (1.3-7.7) k/uL ABG pH (7.35-7.45) ABG pO2 162 H (83-108) mmHg ABG Total CO2 (19-24) mmol/L ABG O2 Saturation 99.4 H (94-97) % Chloride (98-107) mmol/L Carbon Dioxide (22-30) mmol/L Creatinine (0.66-1.25) mg/dL Glucose (74-99) mg/dL POC Glucose (mg/dL) (75-99) mg/dL Magnesium (1.6-2.3) mg/dL AST (17-59) U/L ALT (21-72) U/L Total Creatine Kinase 6143 H (55-170) U/L CK-MB (CK-2) 299.0 H* (0.0-2.4) ng/mL Troponin I 186.000 H* (0.000-0.034) ng/mL Triglycerides (<150) mg/dL TSH (0.465-4.680) mIU/L Ur Specific Yale >1.050 H (1.001-1.035) Urine Protein 2+ H (Negative) Urine Blood Moderate H (Negative) Ur Leukocyte Esterase (Negative) Urine RBC 12 H (0-5) /hpf Urine WBC (0-5) /hpf Urine Opiates Screen (NotDetected) U Marijuana (THC) Screen (NotDetected) 05/31/17 05/31/17 06/01/17 Range/Units 21:15 22:41 05:25 WBC (3.8-10.6) k/uL Neutrophils # (1.3-7.7) k/uL ABG pH 7.46 H (7.35-7.45) ABG pO2 116 H (83-108) mmHg ABG Total CO2 25 H (19-24) mmol/L ABG O2 Saturation 98.8 H (94-97) % Chloride (98-107) mmol/L Carbon Dioxide (22-30) mmol/L Creatinine (0.66-1.25) mg/dL Glucose (74-99) mg/dL POC Glucose (mg/dL) (75-99) mg/dL Magnesium (1.6-2.3) mg/dL AST (17-59) U/L ALT (21-72) U/L Total Creatine Kinase 5272 H (55-170) U/L CK-MB (CK-2) 183.0 H* (0.0-2.4) ng/mL Troponin I 158.000 H* (0.000-0.034) ng/mL Triglycerides (<150) mg/dL TSH (0.465-4.680) mIU/L Ur Specific Yale (1.001-1.035) Urine Protein (Negative) Urine Blood (Negative) Ur Leukocyte Esterase (Negative) Urine RBC (0-5) /hpf Urine WBC (0-5) /hpf Urine Opiates Screen Detected H (NotDetected) U Marijuana (THC) Screen Detected H (NotDetected) 06/01/17 06/01/17 06/01/17 Range/Units 05:35 05:35 05:35 WBC 18.0 H (3.8-10.6) k/uL Neutrophils # 13.5 H (1.3-7.7) k/uL ABG pH (7.35-7.45) ABG pO2 (83-108) mmHg ABG Total CO2 (19-24) mmol/L ABG O2 Saturation (94-97) % Chloride (98-107) mmol/L Carbon Dioxide (22-30) mmol/L Creatinine (0.66-1.25) mg/dL Glucose 113 H (74-99) mg/dL POC Glucose (mg/dL) (75-99) mg/dL Magnesium (1.6-2.3) mg/dL AST 258 H (17-59) U/L ALT 147 H (21-72) U/L Total Creatine Kinase (55-170) U/L CK-MB (CK-2) (0.0-2.4) ng/mL Troponin I 90.300 H* (0.000-0.034) ng/mL Triglycerides 237 H (<150) mg/dL TSH 0.348 L (0.465-4.680) mIU/L Ur Specific Yale (1.001-1.035) Urine Protein (Negative) Urine Blood (Negative) Ur Leukocyte Esterase (Negative) Urine RBC (0-5) /hpf Urine WBC (0-5) /hpf Urine Opiates Screen (NotDetected) U Marijuana (THC) Screen (NotDetected) 06/01/17 06/01/17 Range/Units 06:45 09:10 WBC (3.8-10.6) k/uL Neutrophils # (1.3-7.7) k/uL ABG pH (7.35-7.45) ABG pO2 (83-108) mmHg ABG Total CO2 (19-24) mmol/L ABG O2 Saturation (94-97) % Chloride (98-107) mmol/L Carbon Dioxide (22-30) mmol/L Creatinine (0.66-1.25) mg/dL Glucose (74-99) mg/dL POC Glucose (mg/dL) 175 H (75-99) mg/dL Magnesium (1.6-2.3) mg/dL AST (17-59) U/L ALT (21-72) U/L Total Creatine Kinase (55-170) U/L CK-MB (CK-2) (0.0-2.4) ng/mL Troponin I (0.000-0.034) ng/mL Triglycerides (<150) mg/dL TSH (0.465-4.680) mIU/L Ur Specific Yale (1.001-1.035) Urine Protein 2+ H (Negative) Urine Blood Large H (Negative) Ur Leukocyte Esterase Small H (Negative) Urine RBC >182 H (0-5) /hpf Urine WBC 49 H (0-5) /hpf Urine Opiates Screen (NotDetected) U Marijuana (THC) Screen (NotDetected) Assessment and Plan (1) Cardiopulmonary arrest with successful resuscitation Narrative/Plan: Intubated in the ICU, currently on sedation, cardiology is following, amiodarone drip was discontinued today, following commands on sedation holiday. Status: Acute (2) STEMI (ST elevation myocardial infarction) Narrative/Plan: ASA, effient, lipitor, cardio recs prn nitro Status: Acute (3) Acute respiratory failure Narrative/Plan: Currently on vent, management per critical care, currently on sedation holiday Status: Acute (4) MOHSEN (acute kidney injury) Narrative/Plan: Appears resolved, monitor BMP, avoid nephrotoxic agents. Status: Resolved (5) Ventricular fibrillation Narrative/Plan: off amio, due to 100% LAD occlusion, tele, cario recs, TSH nonrevealing Status: Acute (6) Dyslipidemia Narrative/Plan: statin therapy Status: Acute (7) Alcohol abuse Narrative/Plan: any withdrawal will be treated with propofol at this time, if able to come off vent will then start symptom triggered therapy. start thiamine supplementation, follow Mg and Phos Status: Acute (8) Nicotine addiction Narrative/Plan: cessation encouraged. Status: Acute (9) Transaminitis Narrative/Plan: Likely elevated from hypoperfusion due to V. fib, may also be alcohol-related, recheck liver enzymes in a.m., if continue to be elevated check liver ultrasound Status: Acute (10) Elevated CK Narrative/Plan: not diagnostic of rhabdo, recheck CK level, IVF Status: Acute Plan: Surrogate decision-maker Nasrin [phone] DVT prophylaxis: heparin sc Discused with: nursing, Anticipated discharge: 48- [address]: home A total of 45 minutes was spent on the care of this complex patient more than 50 % of the time was spent in counseling and care coordination.
[2017-06-01] MEDS: CISATRACURIUM 200 MG in SODIUM CHLORIDE 0.9% 180 ML IV SCH (11:25)
--- NOTE | 2017-06-01 11:38 | P.PN ---
Subjective Patient is still intubated. His sedation levels were lightened considerably but there was no purposeful movement or any significant mental status recovery noted. On examination weighs 1 this morning his blood pressure was in the 90s to 100 mmHg he was intubated pulse rate in the 70s breath sounds are reduced bilaterally, no rhonchi no crackles Heart sounds are soft no murmurs or gallops Impression Acute myocardial infarction Out of hospital VF arrest Needed two shocks to successfully defibrillated Suggest Continue ICU care Evaluate neurologic recovery Dual antiplatelet therapy Statins Low-dose beta blockers as long as heart rate and blood pressure is stable Prognosis critical at this time Objective - Vital Signs Vital signs: Vital Signs Temp 99.4 F 06/01/17 07:30 Pulse 77 06/01/17 11:25 Resp 16 06/01/17 11:00 BP 84/60 06/01/17 11:00 Pulse Ox 91 L 06/01/17 11:00 Intake & Output 05/31/17 06/01/17 06/01/17 18:59 06:59 18:59 Intake Total 2415.534 0781.808 680.709 Output Total 295 1245 1055 Balance 751.100 2.808 -374.291 Weight 97.8 kg 99.3 kg 99.3 kg Intake: IV 798.7 925 375 Sodium Chloride 0.9% 1, 500 925 225 000 ml @ 100 mls/hr IV . Q10H [facility] Rx#:[id number] Sodium Chloride 0.9% 1, 150 000 ml @ 75 mls/hr IV . [id number] [facility] Rx#:[id number] Intake, IV Titration 247.400 322.808 305.709 Amount Amiodarone 450 mg In 99.9 Dextrose 5% in Water 250 ml @ 1 MG/MIN 34.53 mls/ hr IV .Q7H31M [facility] Rx#: [id number] Dexmedetomidine/0.9% NaCl 5.709 (Pmx) 400 mcg In Empty Bag 1 bag @ Titrate IV . Q0M [facility] Rx#:[id number] Magnesium Sulfate-D5w Pmx 200 1 gm In Dextrose/Water 1 100ml.bag @ 100 mls/hr IVPB Q1H [facility] Rx#: [id number] Propofol 1,000 mg In 100 100.000 313.308 100.000 ml @ Titrate IV .Q0M [facility] Rx#:[id number] Tirofiban 12.5MG-250Ml Ns 38.0 9.5 250 ml @ 0.075 MCG/KG/ MIN 9.998 mls/hr IV .Q24H [facility] Rx#:[id number] Tirofiban 12.5MG-250Ml Ns 9.5 250 ml As IV .STK-MED [facility] Rx#:[id number] Output: Gastric Drainage 900 Urine 295 1245 155 Other: Voiding Method Indwelling Catheter Indwelling Catheter Indwelling Catheter - Labs CBC & Chem 7: 06/01/17 05:35 06/01/17 05:35 Labs: Abnormal Lab Results - Last 24 Hours (Table) 05/31/17 05/31/17 05/31/17 Range/Units 11:18 11:18 11:18 WBC 16.2 H (3.8-10.6) k/uL Neutrophils # (1.3-7.7) k/uL ABG pH (7.35-7.45) ABG pO2 (83-108) mmHg ABG Total CO2 (19-24) mmol/L ABG O2 Saturation (94-97) % Chloride 108 H (98-107) mmol/L Carbon Dioxide 13 L (22-30) mmol/L Creatinine 1.39 H (0.66-1.25) mg/dL Glucose 219 H (74-99) mg/dL POC Glucose (mg/dL) (75-99) mg/dL Magnesium (1.6-2.3) mg/dL AST (17-59) U/L ALT 89 H (21-72) U/L Total Creatine Kinase 212 H (55-170) U/L CK-MB (CK-2) 2.7 H* (0.0-2.4) ng/mL Troponin I 0.691 H* (0.000-0.034) ng/mL Triglycerides (<150) mg/dL TSH (0.465-4.680) mIU/L Ur Specific [facility] (1.001-1.035) Urine Protein (Negative) Urine Blood (Negative) Ur Leukocyte Esterase (Negative) Urine RBC (0-5) /hpf Urine WBC (0-5) /hpf Urine Opiates Screen (NotDetected) U Marijuana (THC) Screen (NotDetected) 05/31/17 05/31/17 05/31/17 Range/Units 11:18 13:25 13:33 WBC (3.8-10.6) k/uL Neutrophils # (1.3-7.7) k/uL ABG pH (7.35-7.45) ABG pO2 (83-108) mmHg ABG Total CO2 (19-24) mmol/L ABG O2 Saturation (94-97) % Chloride (98-107) mmol/L Carbon Dioxide (22-30) mmol/L Creatinine (0.66-1.25) mg/dL Glucose (74-99) mg/dL POC Glucose (mg/dL) 148 H (75-99) mg/dL Magnesium 2.4 H (1.6-2.3) mg/dL AST (17-59) U/L ALT (21-72) U/L Total Creatine Kinase (55-170) U/L CK-MB (CK-2) (0.0-2.4) ng/mL Troponin I (0.000-0.034) ng/mL Triglycerides 203 H (<150) mg/dL TSH (0.465-4.680) mIU/L Ur Specific [place] (1.001-1.035) Urine Protein (Negative) Urine Blood (Negative) Ur Leukocyte Esterase (Negative) Urine RBC (0-5) /hpf Urine WBC (0-5) /hpf Urine Opiates Screen (NotDetected) U Marijuana (THC) Screen (NotDetected) 05/31/17 05/31/17 05/31/17 Range/Units 14:00 15:30 17:07 WBC (3.8-10.6) k/uL Neutrophils # (1.3-7.7) k/uL ABG pH (7.35-7.45) ABG pO2 162 H (83-108) mmHg ABG Total CO2 (19-24) mmol/L ABG O2 Saturation 99.4 H (94-97) % Chloride (98-107) mmol/L Carbon Dioxide (22-30) mmol/L Creatinine (0.66-1.25) mg/dL Glucose (74-99) mg/dL POC Glucose (mg/dL) (75-99) mg/dL Magnesium (1.6-2.3) mg/dL AST (17-59) U/L ALT (21-72) U/L Total Creatine Kinase 6143 H (55-170) U/L CK-MB (CK-2) 299.0 H* (0.0-2.4) ng/mL Troponin I 186.000 H* (0.000-0.034) ng/mL Triglycerides (<150) mg/dL TSH (0.465-4.680) mIU/L Ur Specific [place] >1.050 H (1.001-1.035) Urine Protein 2+ H (Negative) Urine Blood Moderate H (Negative) Ur Leukocyte Esterase (Negative) Urine RBC 12 H (0-5) /hpf Urine WBC (0-5) /hpf Urine Opiates Screen (NotDetected) U Marijuana (THC) Screen (NotDetected) 05/31/17 05/31/17 06/01/17 Range/Units 21:15 22:41 05:25 WBC (3.8-10.6) k/uL Neutrophils # (1.3-7.7) k/uL ABG pH 7.46 H (7.35-7.45) ABG pO2 116 H (83-108) mmHg ABG Total CO2 25 H (19-24) mmol/L ABG O2 Saturation 98.8 H (94-97) % Chloride (98-107) mmol/L Carbon Dioxide (22-30) mmol/L Creatinine (0.66-1.25) mg/dL Glucose (74-99) mg/dL POC Glucose (mg/dL) (75-99) mg/dL Magnesium (1.6-2.3) mg/dL AST (17-59) U/L ALT (21-72) U/L Total Creatine Kinase 5272 H (55-170) U/L CK-MB (CK-2) 183.0 H* (0.0-2.4) ng/mL Troponin I 158.000 H* (0.000-0.034) ng/mL Triglycerides (<150) mg/dL TSH (0.465-4.680) mIU/L Ur Specific [place] (1.001-1.035) Urine Protein (Negative) Urine Blood (Negative) Ur Leukocyte Esterase (Negative) Urine RBC (0-5) /hpf Urine WBC (0-5) /hpf Urine Opiates Screen Detected H (NotDetected) U Marijuana (THC) Screen Detected H (NotDetected) 06/01/17 06/01/17 06/01/17 Range/Units 05:35 05:35 05:35 WBC 18.0 H (3.8-10.6) k/uL Neutrophils # 13.5 H (1.3-7.7) k/uL ABG pH (7.35-7.45) ABG pO2 (83-108) mmHg ABG Total CO2 (19-24) mmol/L ABG O2 Saturation (94-97) % Chloride (98-107) mmol/L Carbon Dioxide (22-30) mmol/L Creatinine (0.66-1.25) mg/dL Glucose 113 H (74-99) mg/dL POC Glucose (mg/dL) (75-99) mg/dL Magnesium (1.6-2.3) mg/dL AST 258 H (17-59) U/L ALT 147 H (21-72) U/L Total Creatine Kinase (55-170) U/L CK-MB (CK-2) (0.0-2.4) ng/mL Troponin I 90.300 H* (0.000-0.034) ng/mL Triglycerides 237 H (<150) mg/dL TSH 0.348 L (0.465-4.680) mIU/L Ur Specific [place] (1.001-1.035) Urine Protein (Negative) Urine Blood (Negative) Ur Leukocyte Esterase (Negative) Urine RBC (0-5) /hpf Urine WBC (0-5) /hpf Urine Opiates Screen (NotDetected) U Marijuana (THC) Screen (NotDetected) 06/01/17 06/01/17 Range/Units 06:45 09:10 WBC (3.8-10.6) k/uL Neutrophils # (1.3-7.7) k/uL ABG pH (7.35-7.45) ABG pO2 (83-108) mmHg ABG Total CO2 (19-24) mmol/L ABG O2 Saturation (94-97) % Chloride (98-107) mmol/L Carbon Dioxide (22-30) mmol/L Creatinine (0.66-1.25) mg/dL Glucose (74-99) mg/dL POC Glucose (mg/dL) 175 H (75-99) mg/dL Magnesium (1.6-2.3) mg/dL AST (17-59) U/L ALT (21-72) U/L Total Creatine Kinase (55-170) U/L CK-MB (CK-2) (0.0-2.4) ng/mL Troponin I (0.000-0.034) ng/mL Triglycerides (<150) mg/dL TSH (0.465-4.680) mIU/L Ur Specific [place] (1.001-1.035) Urine Protein 2+ H (Negative) Urine Blood Large H (Negative) Ur Leukocyte Esterase Small H (Negative) Urine RBC >182 H (0-5) /hpf Urine WBC 49 H (0-5) /hpf Urine Opiates Screen (NotDetected) U Marijuana (THC) Screen (NotDetected)
[2017-06-01] MEDS: MULTIVITAMINS, THERA 1 EACH TAB PO SCH (12:11)
[2017-06-01] MEDS ORDERED: SODIUM CHLORIDE 0.9% 1,000 ML IV ONE (12:33)
[2017-06-01] MEDS: THIAMINE 100 MG TAB PO SCH ×2 (12:51→16:58)
--- NOTE | 2017-06-01 14:05 | CT ---
EXAMINATION TYPE: CT brain w con DATE OF EXAM: 06/01/2017 COMPARISON: NONE INDICATION: Recent [place], vented not come off vent easily mental status change DLP: 955.1 mGycm, Automated exposure control for dose reduction was used. CONTRAST: [address] of the brain is performed utilizing 3 mm thick sections through the posterior fossa and 3 mm thick sections through the remaining calvarium. Study is performed within 24 hours of arrival to the hosp ital. No abnormal hyperdensity is present to suggest an acute intracranial hemorrhage. No mass lesion is evident. No acute infarcts are evident. No abnormal enhancement is evident. Ventricles and sulci are appropriate for the patient age. Paranasal sinuses and mastoid air cells within the [id number] are clear. IMPRESSIONS: 1. No acute intracranial process postcontrast
[2017-06-01 14:40] LABS: Glucose,Whole Blood 130 mg/dL (75-99)
--- NOTE | 2017-06-01 19:37 | CC ---
DATE OF PROCEDURE: 05/31/2017 PROCEDURE: Left heart catheterization, coronary angiography. PERFORMED BY: Dr. Lily Triplett CLINICAL INFORMATION: Mr. 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 Two shocks were given for unresponsiveness and possible ventricular fibrillation. The patient was resuscitated, brought to the emergency room. He was seen by Dr. Mayes and was noted to have anterior ST elevation ( ) catheterization and PCI if indicated and brought into the chemical laboratory chief. I could not communicate with the patient, but I spoke to the patient's brother and proceeded with the procedure expeditiously. PROCEDURE NOTE: Under local anesthesia and strict aseptic precautions, a 6 Serbian introducer was placed in the right femoral artery. Patient was hemodynamically somewhat unstable, placed on a ventilator, and was also on a propofol drip. Patient was on a ventilator with a propofol drip. The 6 Serbian introducer was placed in the right femoral artery. Using standard Shoaib catheters, I performed coronary angiography. I first performed intervention with a standard left Shoaib type guide catheter and then performed right coronary injection and LV pressures were obtained ( ). Patient received 4000 units of heparin in the ER and I placed him on Angiomax bolus ( ) during the case. CARDIAC CATHETERIZATION FINDINGS The left ventricular end-diastolic pressure was 22 mmHg without any gradient across the aortic valve. CORONARY ANGIOGRAPHY FINDINGS LEFT MAIN CORONARY ARTERY: Short, patent, disease-free vessel that bifurcates into LAD and circumflex. LEFT ANTERIOR DESCENDING CORONARY ARTERY: This vessel gives off a very small diagonal branch. It is totally occluded and is seen as a stump. LEFT POSTERIOR CIRCUMFLEX CORONARY ARTERY: Technically a non-dominant/co- dominant vessel, it gives off a good-sized obtuse marginal branch at the AV groove, gives off a left atrial circumflex branch and distal branches of circumflex have minor irregularities but no significant disease. RIGHT CORONARY ARTERY: Technically a dominant vessel. Crosses ( ). Gives off a good-sized PDA and a smaller PLV branch. Has minor irregularities. No significant disease in the RCA, which is a dominant vessel. LEFT VENTRICULOGRAM: This was not performed. FINAL IMPRESSION: This patient has a total occlusion of LAD with minor irregularities in the dominant RCA and also technically non-dominant circumflex. Filling pressures ( ) elevated. LV gram was not performed. RECOMMENDATIONS: I proceeded with PCI expeditiously of the totally occluded LAD. AURA
--- NOTE | 2017-06-01 19:55 | PTCA ---
DATE OF SERVICE: 05/31/2017 PROCEDURE: PTCA and stenting of ( ) occluded proximal LAD presenting with acute myocardial infarction as the primary procedure in a patient who had a cardiac arrest and was resuscitated. PROCEDURE NOTE: The existing 6 Tajik introducer in the right femoral artery was used to perform the procedure. I used a standard JL4 guide catheter ( ) a BMW wire was used to cross the lesion. Predilatation was performed using a 4.0 caliber 15 mm long Trek balloon. I noted that the entire vessel was filled with a thrombus. I advanced the balloon in a deflated condition all the way toward the apex. I noted that distally toward the apex there seemed to be a total occlusion without much outflow. I gave some nicardipine intracoronary. I then deployed after some deliberation a 3.5 caliber 12 mm long Xience stent at 12 and 13 atmospheres. The patient had an excellent angiographic results with a brisk flow, but the distal one fifth of the LAD remained totally occluded without much antegrade flow, suggesting that there may have been a distal occlusion which was either chronic total or chronic subtotal. However, the entire LAD and diagonal branch had several septal branches opened up with a brisk flow. Patient had some ventricular tachycardia initially. I gave him some lidocaine. After the vessel was opened up, he stabilized, and the small dose of Levophed that was started was also discontinued. Patient was hemodynamically stable, with good angiographic results. I gave the patient 16 mg of Effient through the NG tube. He received Angiomax bolus and infusion, but because of his significant thrombus burden, I started him on Aggrastat and I will continue this for a total duration of 18 hours. The sheath was then taken out and Angioseal device used to secure hemostasis. I placed a 4 Tajik sheath in the right femoral vein for IV access and to have an additional IV port. Patient had a good angiographic result, had improvement in ST-segment elevation , but not resolution, and the distal one fifth of the LAD remained totally occluded. 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 Patient was still on a ventilator, intubated, sent to the ICU in a hemodynamically stable condition. Results were discussed with the patient and his brother, who was the immediate family member available. Moderate conscious sedation was provided for a duration of about one hour. Excellent angiographic result was achieved with the distal occlusion of the vessel ( ) distal one fifth of the LAD. Patient remained hemodynamically stable. [facility]
[2017-06-01 20:38] LABS: Glucose,Whole Blood 167 mg/dL (75-99)
[2017-06-01] MEDS: ATORVASTATIN 80 MG TAB OG-TUBE SCH (20:41)
[2017-06-01] MEDS: ARTIFICIAL TEARS-HYPROMELLOSE DROPS 15 ML BTL BOTH EYES SCH (20:41)
--- NOTE | 2017-06-01 23:24 | P.CNNES ---
History of Present Illness Consult date: 06/01/17 Reason for Consult: Patient with witnessed cardiac arrest remains on the ventilator. 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 Apparently he was working just as usual yesterday and suddenly collapsed. Cervical colleagues attempted to help him but he remained unresponsive. EMS was called to the scene and when they arrived they found him to be in full cardiopulmonary arrest. EKG done showed ventricular fibrillation and he was defibrillated 2. He was transported EMS to the emergency room for further treatment and management. He was intubated and then transferred to the intensive care unit. Cardiology was consulted and he was taken to the catheterization lab. He was found to have a total occlusion of the LAD. A stent was placed by cardiology. His down time at the worksite was estimated to be about 5 minutes in duration. As was noted earlier he did seem to respond initially when he was in the ICU. Today he remains obtunded on the ventilator. He remains on Diprivan as well as Nimbex. According to his who is at bedside he never complained of any medical issues prior to this full cardiac arrest. He has not followed with any primary care physician according to the . Apparently his brother from a massive myocardial infarction at a young age of 54. On further questioning the states he has complained of left arm pain over the last 1 month. She attributed this to the type of work he does. The patient was able to undergo a computed tomography scan of the brain. CAT scan of the brain revealed no acute intracranial abnormality. He also underwent EEG today which was reviewed. His EEG is moderately slow. There was no epileptiform discharges seen. We have reviewed all of the test results today with the patient's who is at bedside. She was updated on the EEG findings. His prognosis at this time remains very guarded. Neurology is now been consulted for further evaluation and recommendations. Review of Systems ROS unobtainable: due to endotracheal tube Constitutional: Denies chills, Denies fever Eyes: denies blurred vision, denies pain Ears, nose, mouth and throat: Denies headache, Denies sore throat Cardiovascular: Denies chest pain, Denies shortness of breath Respiratory: Denies cough Gastrointestinal: Denies abdominal pain, Denies diarrhea, Denies nausea, Denies vomiting Musculoskeletal: Denies myalgias Integumentary: Denies pruritus, Denies rash Neurological: Denies numbness, Denies weakness Psychiatric: Denies anxiety, Denies depression Past Medical History Past Medical History: Myocardial Infarction (VT) Additional Past Medical History / Comment(s): Coded outside hospital 05/31/17 - vfib, shocked X2 and intubated by EMS got a stent to the LAD Last Myocardial Infarction Date:: 05/31/17 History of Any Multi-Drug Resistant Organisms: None Reported Past Surgical History: Heart Catheterization With Stent Additional Past Surgical History / Comment(s): wart removal years ago; right hand surgery apx. 1987 Past Anesthesia/Blood Transfusion Reactions: No Reported Reaction Date of Last Stent Placement:: 05/31/17 Smoking Status: Current every day smoker - Past Family History Father Family Medical History: Coronary Artery Disease (CAD), Myocardial Infarction (VT ) Additional Family Medical History / Comment(s): Uncle with "thickening of heart muscle"; thinks uncle has "HIIS"; dad at age 53 from a heart attack Mother Family Medical History: No Reported History Medications and Allergies Home Medications Medication Instructions Recorded Confirmed Type Aspirin 162 mg PO ONCE 05/31/17 05/31/17 History Allergies Allergy/AdvReac Type Severity Reaction Status Date / Time No Known Allergies Allergy Verified 05/31/17 18:33 Physical Examination - Vital Signs Vital Signs: Vital Signs Temp Pulse Pulse Resp BP BP Pulse Ox 06/01/17 22:57 86 06/01/17 22:30 104 H 27 H 150/105 92 L 06/01/17 22:00 95 26 H 169/90 92 L 06/01/17 21:30 96 26 H 154/88 91 L 06/01/17 21:00 93 10 L 164/96 92 L 06/01/17 20:30 92 14 158/101 93 L 06/01/17 20:01 75 06/01/17 20:00 97.7 F 78 16 109/66 96 06/01/17 19:45 83 06/01/17 19:30 69 0 L 102/68 92 L 06/01/17 19:00 74 20 99/64 93 L 06/01/17 18:30 87 20 114/76 91 L 06/01/17 18:00 75 20 103/66 92 L 06/01/17 17:30 73 20 101/63 93 L 06/01/17 17:00 69 20 110/66 92 L 06/01/17 16:30 76 20 115/71 91 L 06/01/17 16:00 98.3 F 87 20 143/80 91 L 06/01/17 15:43 79 06/01/17 15:30 84 20 139/87 93 L 06/01/17 15:29 84 06/01/17 15:00 83 20 110/68 91 L 06/01/17 14:30 81 20 126/75 90 L 06/01/17 14:00 82 12 109/89 93 L 06/01/17 13:00 80 19 112/70 93 L 06/01/17 12:30 84 13 85/59 92 L 06/01/17 12:00 97.5 F L 80 20 90/60 87 L 06/01/17 11:30 77 28 H 70/50 94 L 06/01/17 11:25 77 06/01/17 11:09 79 06/01/17 11:00 81 16 84/60 91 L 06/01/17 10:30 69 20 92/54 95 06/01/17 10:00 90 20 97/52 96 06/01/17 09:30 93 22 117/75 93 L 06/01/17 09:00 109 H 29 H 169/97 82 L 06/01/17 08:30 89 20 107/63 96 06/01/17 08:02 91 06/01/17 08:00 90 100 20 89/64 96 06/01/17 07:48 91 06/01/17 07:30 99.4 F 90 20 102/64 94 L 06/01/17 07:00 94 16 104/61 91 L 06/01/17 06:30 102 H 22 117/65 92 L 06/01/17 06:00 96 17 124/73 96 06/01/17 05:30 92 15 117/75 97 06/01/17 05:00 97 23 120/74 97 06/01/17 04:30 93 21 119/70 97 06/01/17 04:00 99.8 F H 91 100 19 113/71 97 06/01/17 03:30 90 20 107/68 97 06/01/17 03:17 90 06/01/17 03:00 96 19 121/74 97 06/01/17 02:30 98 17 118/69 97 06/01/17 02:00 95 25 H 131/80 97 06/01/17 01:30 97 23 124/72 97 06/01/17 01:00 100 21 118/78 97 06/01/17 00:56 99.8 F H 100 21 118/69 97 06/01/17 00:31 95 06/01/17 00:30 99.8 F H 96 19 119/74 97 06/01/17 00:15 94 06/01/17 00:00 91 17 114/70 98 05/31/17 23:30 89 5 L 109/73 98 05/31/17 23:11 88 21 104/72 98 Intake and Output 06/01/17 06/01/17 06/02/17 14:59 22:59 06:59 Intake Total 2025.465 929.780 Output Total 1125 350 Balance 900.465 579.780 Intake: IV 550 550 Sodium Chloride 0.9% 1, 225 000 ml @ 100 mls/hr IV . Q10H [facility] Rx#:[id number] Sodium Chloride 0.9% 1, 325 550 000 ml @ 75 mls/hr IV . [id number] [facility] Rx#:[id number] Intake, IV Titration 1475.465 149.780 Amount Cisatracurium 200 mg In 75.463 49.780 Sodium Chloride 0.9% 180 ml @ 1 MCG/KG/MIN 5.95 mls/hr IV .Q24H [facility] Rx#: [id number] Dexmedetomidine/0.9% NaCl 70.232 100 (Pmx) 400 mcg In Empty Bag 1 bag @ Titrate IV . Q0M [facility] Rx#:[id number] Magnesium Sulfate-D5w Pmx 200 1 gm In Dextrose/Water 1 100ml.bag @ 100 mls/hr IVPB Q1H [facility] Rx#: [id number] Propofol 1,000 mg In 100 129.770 ml @ Titrate IV .Q0M [facility] Rx#:[id number] Sodium Chloride 0.9% 1, 1000 000 ml @ 999 mls/hr IV . Q1H1M [facility] Rx#:[id number] Tube Feeding 200 Other 30 Output: Gastric Drainage 900 Urine 225 350 Other: Voiding Method Indwelling Catheter Indwelling Catheter Weight 99.3 kg 99.3 kg Patient Weight 06/02/17 06:59 Weight 99.3 kg - Constitutional General appearance: average body habitus - EENT EENT: PERRL, mucous membranes moist - Respiratory Respiratory: lungs clear, normal breath sounds - Cardiovascular Cardiovascular: regular rate, normal S1, normal S2 Extremities: no peripheral edema bilaterally - Gastrointestinal Gastrointestinal: normoactive bowel sounds - Integumentary Integumentary: normal - Neurologic Cranial nerve examination: face symmetric, normal palatal elevation Speech examination: intact Sensorimotor examination: intact Motor examination - right side: 15: biceps, triceps, wrist flexion, wrist extension, grinder operator, hip flexors, knee extensors, dorsiflexion, toe extension (EHL) , plantarflexion Motor examination - left side: 1: biceps, triceps, wrist flexion, wrist extension, grinder operator, hip flexors, knee extensors, dorsiflexion, toe extension (EHL) , plantarflexion Detailed sensory examination: intact Reflex and gait examination: intact Reflexes: 1+: ankle, bicep, knee, tricep - Musculoskeletal Musculoskeletal: no pain Results - Laboratory Findings CBC and BMP: 06/01/17 05:35 06/01/17 05:35 Abnormal Lab Findings: Abnormal Labs 05/31/17 05/31/17 05/31/17 11:18 11:18 11:18 WBC 16.2 H Neutrophils # ABG pH ABG pO2 ABG Total CO2 ABG O2 Saturation Chloride 108 H Carbon Dioxide 13 L Creatinine 1.39 H Glucose 219 H POC Glucose (mg/dL) Magnesium AST ALT 89 H Creatine Kinase Total Creatine Kinase 212 H CK-MB (CK-2) 2.7 H* Troponin I 0.691 H* Triglycerides TSH Ur Specific [place] Urine Protein Urine Blood Ur Leukocyte Esterase Urine RBC Urine WBC Urine Opiates Screen U Marijuana (THC) Screen 05/31/17 05/31/17 05/31/17 11:18 13:25 13:33 WBC Neutrophils # ABG pH ABG pO2 ABG Total CO2 ABG O2 Saturation Chloride Carbon Dioxide Creatinine Glucose POC Glucose (mg/dL) 148 H Magnesium 2.4 H AST ALT Creatine Kinase Total Creatine Kinase CK-MB (CK-2) Troponin I Triglycerides 203 H TSH Ur Specific [place] Urine Protein Urine Blood Ur Leukocyte Esterase Urine RBC Urine WBC Urine Opiates Screen U Marijuana (THC) Screen 05/31/17 05/31/17 05/31/17 14:00 15:30 17:07 WBC Neutrophils # ABG pH ABG pO2 162 H ABG Total CO2 ABG O2 Saturation 99.4 H Chloride Carbon Dioxide Creatinine Glucose POC Glucose (mg/dL) Magnesium AST ALT Creatine Kinase Total Creatine Kinase 6143 H CK-MB (CK-2) 299.0 H* Troponin I 186.000 H* Triglycerides TSH Ur Specific [place] >1.050 H Urine Protein 2+ H Urine Blood Moderate H Ur Leukocyte Esterase Urine RBC 12 H Urine WBC Urine Opiates Screen U Marijuana (THC) Screen 05/31/17 05/31/17 06/01/17 21:15 22:41 05:25 WBC Neutrophils # ABG pH 7.46 H ABG pO2 116 H ABG Total CO2 25 H ABG O2 Saturation 98.8 H Chloride Carbon Dioxide Creatinine Glucose POC Glucose (mg/dL) Magnesium AST ALT Creatine Kinase Total Creatine Kinase 5272 H CK-MB (CK-2) 183.0 H* Troponin I 158.000 H* Triglycerides TSH Ur Specific [place] Urine Protein Urine Blood Ur Leukocyte Esterase Urine RBC Urine WBC Urine Opiates Screen Detected H U Marijuana (THC) Screen Detected H 06/01/17 06/01/17 06/01/17 05:35 05:35 05:35 WBC 18.0 H Neutrophils # 13.5 H ABG pH ABG pO2 ABG Total CO2 ABG O2 Saturation Chloride Carbon Dioxide Creatinine Glucose 113 H POC Glucose (mg/dL) Magnesium AST 258 H ALT 147 H Creatine Kinase Total Creatine Kinase CK-MB (CK-2) Troponin I 90.300 H* Triglycerides 237 H TSH 0.348 L Ur Specific [place] Urine Protein Urine Blood Ur Leukocyte Esterase Urine RBC Urine WBC Urine Opiates Screen U Marijuana (THC) Screen 06/01/17 06/01/17 06/01/17 05:35 06:45 09:10 WBC Neutrophils # ABG pH ABG pO2 ABG Total CO2 ABG O2 Saturation Chloride Carbon Dioxide Creatinine Glucose POC Glucose (mg/dL) 175 H Magnesium AST ALT Creatine Kinase 2624 H Total Creatine Kinase CK-MB (CK-2) Troponin I Triglycerides TSH Ur Specific [place] Urine Protein 2+ H Urine Blood Large H Ur Leukocyte Esterase Small H Urine RBC >182 H Urine WBC 49 H Urine Opiates Screen U Marijuana (THC) Screen 06/01/17 06/01/17 14:38 20:36 WBC Neutrophils # ABG pH ABG pO2 ABG Total CO2 ABG O2 Saturation Chloride Carbon Dioxide Creatinine Glucose POC Glucose (mg/dL) 130 H 167 H Magnesium AST ALT Creatine Kinase Total Creatine Kinase CK-MB (CK-2) Troponin I Triglycerides TSH Ur Specific [place] Urine Protein Urine Blood Ur Leukocyte Esterase Urine RBC Urine WBC Urine Opiates Screen U Marijuana (THC) Screen Assessment and Plan (1) Anoxic encephalopathy Status: Acute Code(s): G93.1 - ANOXIC BRAIN DAMAGE, NOT ELSEWHERE CLASSIFIED (2) Cardiopulmonary arrest with successful resuscitation Status: Acute Code(s): I46.9 - CARDIAC ARREST, CAUSE UNSPECIFIED (3) STEMI (ST elevation myocardial infarction) Status: Acute Code(s): I21.3 - ST ELEVATION (STEMI) MYOCARDIAL INFARCTION OF UNSP SITE (4) Stented coronary artery Status: Acute Code(s): Z95.5 - PRESENCE OF CORONARY ANGIOPLASTY IMPLANT AND GRAFT Plan: This patient is a 41-year-old right-handed white male who was admitted to hospital after suffering a witnessed full cardiac arrest. 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 He was working at the [facility] which is very close to the hospital. Apparently he was working on the side and suddenly collapsed. Colleagues she is very much aware of his very guarded condition at this time. She is aware of her husbands very guarded condition at this time. We will continue close neurological follow-up with the patient in the ICU setting. She is aware of her husbands very guarded condition. We are recommending found him and found him to be in full cardiac arrest. He was resuscitated immediately. His downtime is estimated to be at least 5-10 minutes. EMS arrived and found him collapsed and placed him on a gurney. He was subsequent he brought into the emergency room for further evaluation. Cardiology did take the patient to the catheterization lab. He was found to have complete occlusion of the LAD. This required a stent placement. The patient was then transferred to the intensive care unit. He remains lethargic and obtunded most of the day. This was also verified by the ICU nursing staff. We did review of the results of his CAT scan and EEG with the patient's at bedside. All of her questions were answered. She is aware of his very guarded condition. We are recommending repeat EEG is a follow-up study in a few days. We will continue to follow the patient closely in the ICU. His overall prognosis at this time remains very guarded. Time with Patient: Greater than 30
[2017-06-02] MEDS: HEPARIN SODIUM,PORCINE 5,000 UNIT/ML 1 ML VIAL SQ SCH ×3 (00:25→16:00)
[2017-06-02] MEDS: ARTIFICIAL TEARS-HYPROMELLOSE DROPS 15 ML BTL BOTH EYES SCH ×6 (00:25→20:06)
[2017-06-02] MEDS: DEXMEDETOMIDINE/0.9% NACL(PMX) 400 MCG in EMPTY BAG 1 BAG IV SCH (02:33)
[2017-06-02] MEDS: IPRATROPIUM-ALBUTEROL 3 ML NEB INHALATION SCH ×6 (03:03→23:16)
[2017-06-02 03:08] LABS: Glucose,Whole Blood 119 mg/dL (75-99)
[2017-06-02] MEDS: INSULIN LISPRO (humaLOG) 300 UNIT/3 ML VIAL SQ SCH ×4 (03:09→20:12)
[2017-06-02] MEDS: PROPOFOL 1,000 MG/100 ML VIAL IV SCH ×6 (04:49→22:04)
[2017-06-02] MEDS: HYDROmorphone 1 MG/ML 1 ML SYRINGE IVP PRN ×4 (04:50→22:09)
[2017-06-02 04:56] LABS: Basophils % (A) 0 %; CH 32.9; CHCM 34.1; Eosinophils % (A) 0 %; HCT 45.9 % (39.0-53.0); HDW 2.92; HGB 15.1 gm/dL (13.0-17.5); Luc % (Auto) 2; Lymphocytes # (A) 3.1 k/uL (1.0-4.8); Lymphocytes % (A) 17 %; Mean Platelet Volume 7.5; Monocytes # (A) 0.9 k/uL (0-1.0); Monocytes % (A) 5 %; Neutrophils # (A) 13.9 k/uL (1.3-7.7); Neutrophils % (A) 76 %; RBC 4.73 m/uL (4.30-5.90); RDW 14.1 % (11.5-15.5); WBC 18.2 k/uL (3.8-10.6); WBC (Perox) 18.11
[2017-06-02 05:10] LABS: Anion Gap 4 mmol/L; Blood Urea Nitrogen 17 mg/dL (9-20); Calcium 7.8 mg/dL (8.4-10.2); Carbon Dioxide 26 mmol/L (22-30); Chloride 106 mmol/L (98-107); Glucose 141 mg/dL (74-99); Magnesium 2.2 mg/dL (1.6-2.3); Non-African American GFR(MDRD) >60 (>60 ml/min/1.73 sqM); Phosphorous 3.2 mg/dL (2.5-4.5); Potassium 5.1 mmol/L (3.5-5.1); Sodium 136 mmol/L (137-145)
[2017-06-02 05:19] LABS: ABG Base Excess -0.2 mmol/L; ABG HCO3 26 mmol/L (21-25); ABG PCO2 62 mmHg (35-45); ABG PH 7.25 (7.35-7.45); ABG PO2 80 mmHg (83-108); ABG TCO2 28 mmol/L (19-24)
--- NOTE | 2017-06-02 07:28 | EEG ---
DATE OF SERVICE: 06/01/2017 ELECTROENCEPHALOGRAPHIC EXAMINATION REPORT INDICATION FOR EXAMINATION: This patient is a 41-year-old male who suffered acute cardiac arrest. Patient currently intubated on the ventilator and is unresponsive. Age: 41. EEG FINDINGS: A routine 21 channel awake, digital EEG recording was accomplished utilizing the 10-20 international system with bipolar and referential montages. The background activity in the most alert, resting state consists of a low to medium amplitude, poorly developed and poorly sustained 5- 6 Hz activity over the posterior head regions. This posterior rhythm attenuates to eye opening. There is a small amount of low amplitude 18-20 Hz beta activity seen maximally over the anterior head regions. Muscle and movement artifact was observed on a few occasions during the tracing. Hyperventilation was not performed. Photic stimulation at flash frequencies of 2 -30 Hz produced a minimal occipital driving response. No epileptiform discharges were seen. IMPRESSION: This EEG gives evidence of a severe widespread diffuse disturbance in cerebral function. The EEG failed to reveal any focal, lateralized or epileptiform abnormalities. If clinically indicated a follow-up EEG is recommended. Clinical correlation is recommended . AURA
--- NOTE | 2017-06-02 08:29 | XR ---
EXAMINATION TYPE: XR chest 1V DATE OF EXAM: 06/02/2017 COMPARISON: 06/01/2017 HISTORY: Shortness of breath TECHNIQUE: Single frontal view of the chest is obtained. FINDINGS: There is persistent left-sided perihilar infiltrate extending into the lower lobe with tin y effusion. ET and NG tube stable. No pneumothorax. IMPRESSION: 1. Persistent left-sided areas of infiltrate. Correlate for pneumonia. Mild central venous congestion not excluded.
[2017-06-02] MEDS: CHLORHEXIDINE GLUCONATE 15 ML CUP MUCOUS MEM SCH ×2 (08:48→20:12)
[2017-06-02] MEDS: ASPIRIN 325 MG TAB PO SCH (08:48)
[2017-06-02] MEDS: PANTOPRAZOLE 40 MG/10 ML VIAL IVP SCH (08:49)
[2017-06-02] MEDS: PRASUGREL 10 MG TAB PO SCH (08:49)
[2017-06-02 08:52] LABS: Glucose,Whole Blood 119 mg/dL (75-99)
[2017-06-02 08:58] LABS: Total Bilirubin 0.7 mg/dL (0.2-1.3)
--- NOTE | 2017-06-02 10:32 | PN ---
Mr. Franks is still intubated. When the stations lightened he got quite agitated but according to the nurse, he did respond to some verbal commands by squeezing the hand. So there is some very limited improvement in neurological status. The CT of the head did not show any acute intracranial process. The EEG showed widespread diffuse disturbance in cerebral function consistent with the delay in neurological recovery. From a cardiac standpoint, he is stable. His blood pressure is about 130/75 mmHg. His heart rate is in the 80s. He is afebrile. Breath sounds are normal. No rhonchi. No crackles. Heart sounds are normal. No murmurs or gallops. Abdomen is soft. Extremities warm. No edema. IMPRESSION: 1. Out of hospital cardiac arrest, VF arrest requiring two defibrillations on the field. 2. Acute ST elevation myocardial infarction status post stenting to the proximal LAD. He also has a chronic distal LAD lesion with collaterals consistent with the fact that this 41 -year-old gentleman had underlying coronary artery disease. 3. Acute brain injury as a result of the VF arrest and very slow recovery at this point. PLAN: Continue antiplatelet agents, statins and beta blockers for post WI management but the final determinate will be is neurological recovery. ICU management per the ICU team. I will wait for the neurological evaluation. AURA
--- NOTE | 2017-06-02 10:38 | ECHOF ---
Referral Reason:post STEMI MEASUREMENTS -------- HEIGHT: 175.3 cm WEIGHT: 102.5 kg BP: 116/63 RVIDd: 3.0 cm (< 3.3) IVSd: 1.2 cm (0.6 - 1.1) LVIDd: 4.6 cm (3.9 - 5.3) LVPWd: 1.2 cm (0.6 - 1.1) IVSs: 1.4 cm LVIDs: 3.8 cm LVPWs: 1.4 cm LAESV Index (A-L): 16.02 ml/m Ao Diam: 2.9 cm (2.0 - 3.7) AV Cusp: 1.8 cm (1.5 - 2.6) LA Diam: 3.0 cm (2.7 - 3.8) MV EXCURSION: 19.544 mm (> 18.000) MV EF SLOPE: 243 mm/s (70 - 150) MV E Jones: 1.21 m/s MV DecT: 175 ms MV A Jones: 0.70 m/s MV E/A Ratio: 1.73 RAP: 5.00 mmHg RVSP: 10.25 mmHg FINDINGS -------- Sinus rhythm. This was a technically adequate study. There is mild concentric left ventricular hypertrophy. Overall left ventricular systolic function is moderately impaired with, an EF between 35 - 40 %. Apical anterior LV wall motion is normal. Apical lateral LV wall motion is normal. Apical inferior LV wall motion is normal. Apical septum LV wall motion is normal. [place] Hypokinesis. The right ventricle is normal in size and function. Normal LA size by volume 22+/-6 ml/m2. The right atrium is normal in size. Aortic valve is trileaflet and is mildly thickened. There is no evidence of aortic regurgitation. There is no evidence of aortic stenosis. The mitral valve leaflets are mildly thickened. There is trace mitral regurgitation. Trace tricuspid regurgitation present. Pulmonic valve appears structurally normal. The aortic root size is normal. Normal inferior vena cava with normal inspiratory collapse consistent with estimated right atrial pressure of 5 mmHg. There is a trivial pericardial effusion present. CONCLUSIONS -------- 1. Sinus rhythm. 2. Normal LA size by volume 22+/-6 ml/m2. 3. Aortic valve is trileaflet and is mildly thickened. 4. The mitral valve leaflets are mildly thickened. 5. There is trace mitral regurgitation. 6. Trace tricuspid regurgitation present. 7. The aortic root size is normal. 8. There is a trivial pericardial effusion present. 9. This was a technically adequate study. 10. There is mild concentric left ventricular hypertrophy. 11. Overall left ventricular systolic function is moderately impaired with, an EF between 35 - 40 %. 12. Apical anterior LV wall motion is normal. 13. Apical lateral LV wall motion is normal. 14. Apical inferior LV wall motion is normal. 15. Apical septum LV wall motion is normal. 16. [place] Hypokinesis. BRICK SETTER: Kendell Bach RDCS
--- NOTE | 2017-06-02 10:54 | P.PN ---
Subjective This is a 41-year-old male who has no major medical history. He apparently had a cardiopulmonary arrest while worsening over the hospital. The patient apparently had ventricular fibrillation was defibrillated. He was resuscitated taken to the rn labor delivery. Catheterization revealed a totally occluded LAD and he had a stent placed. He is currently here on the ventilator. We tried weaning him this morning. We stopped his propofol. He became very agitated. The patient is currently still on the ventilator. We had to sedate him further with Precedex or dexmedetomidine and also give him a paralytic agent Nimbex. Currently the patient's on the ventilator. He's on the assist control mode at 20, Byam for 50 FiO2 up to 100% PEEP increased to 10. We'll titrate the FiO2 down. Blood gases showed a pO2 of 116 a pCO2 35 and a pH 7.46. This is consistent with hyperoxemia and a mild respiratory alkalosis. The patient's on Precedex currently appointment for mics. The propofol will be turned off. He is getting 9 IV at 75 mL an hour. Amiodarone is been turned off. We'll get some tube feeds started. The patient is seen again today 06/02/2017 in follow-up in the intensive care unit. He remains intubated and on the mechanical ventilator. Current settings are assist control of 20, tidal volume 450, FiO2 70% and a PEEP of 10. Morning blood gases reveal a P O2 of 80, pCO2 of 62 and a pH of 7.25. He remains on Nimbex at 2 mcg/kg/m, Precedex at 0.7 mcg/kg/m, propofol at 50 mcg/kg/m. He has a 0.9 normal saline at 75 mL per hour. He is being nourished with 2 Alejandro HN at 35 mL per hour with a goal of 45 mL per hour. His computed tomography scan of the head was negative for acute abnormalities. EEG did reveal slowing. He was seen by neurology. His prognosis is quite guarded at this point with concerns regarding suspected anoxic brain injury. His pF ratio is 114 and there is also concern of possible development of ARDS with concerns for possible aspiration. His chest x-ray reveals persistent left-sided infiltrate. Sputum culture is pending. Remains on bronchodilators every 4 hours. There is some mild central venous congestion as well. His echocardiogram did reveal moderately impaired left ventricular systolic function with an ejection fraction between 35 and 40%. Objective - Vital Signs Vital signs: Vital Signs Temp 97.7 F 06/01/17 20:00 Pulse 90 06/02/17 10:00 Resp 26 H 06/02/17 10:00 BP 164/88 06/02/17 10:00 Pulse Ox 94 L 06/02/17 10:00 Intake & Output 06/01/17 06/02/17 06/02/17 18:59 06:59 18:59 Intake Total 2570.475 1720 597.951 Output Total 1310 675 155 Balance 5374.912 0431 442.951 Weight 99.3 kg 102.8 kg Intake: IV 850 925 300 Sodium Chloride 0.9% 1, 225 000 ml @ 100 mls/hr IV . Q10H [facility] Rx#:[id number] Sodium Chloride 0.9% 1, 625 925 300 000 ml @ 75 mls/hr IV . [id number] [facility] Rx#:[id number] Intake, IV Titration 1595.475 200 192.951 Amount Cisatracurium 200 mg In 125.243 0 74.757 Sodium Chloride 0.9% 180 ml @ 1 MCG/KG/MIN 5.95 mls/hr IV .Q24H [facility] Rx#: [id number] Dexmedetomidine/0.9% NaCl 70.232 200 (Pmx) 400 mcg In Empty Bag 1 bag @ Titrate IV . Q0M [facility] Rx#:[id number] Magnesium Sulfate-D5w Pmx 200 1 gm In Dextrose/Water 1 100ml.bag @ 100 mls/hr IVPB Q1H [facility] Rx#: [id number] Propofol 1,000 mg In 100 200.000 118.194 ml @ Titrate IV .Q0M [facility] Rx#:[id number] Sodium Chloride 0.9% 1, 1000 000 ml @ 999 mls/hr IV . Q1H1M [facility] Rx#:[id number] Tube Feeding 95 595 105 Other 30 Output: Gastric Drainage 900 Urine 410 675 155 Other: Voiding Method Indwelling Catheter Indwelling Catheter - Exam No acute distress, not oriented. Currently sedated. Has a nasally place NG tube and an orally placed endotracheal tube. HEENT examination is grossly unremarkable. Neck supple. Full range of motion. Cardiovascular examination reveals regular rhythm rate. S1-S2 normal. No murmur. Lungs reveal few scattered rhonchi. Breath sounds are diminished. Abdomen soft bowel sounds are heard. Extremities are intact. No cyanosis clubbing or edema. Skin without rash. Neurologic examination cannot be adequately performed. - Labs CBC & Chem 7: 06/02/17 04:24 06/02/17 04:24 Labs: Abnormal Lab Results - Last 24 Hours (Table) 06/01/17 06/01/17 06/01/17 Range/Units 05:35 14:38 20:36 WBC (3.8-10.6) k/uL Neutrophils # (1.3-7.7) k/uL ABG pH (7.35-7.45) ABG pCO2 (35-45) mmHg ABG pO2 (83-108) mmHg ABG HCO3 (21-25) mmol/L ABG Total CO2 (19-24) mmol/L ABG O2 Saturation (94-97) % Sodium (137-145) mmol/L Glucose (74-99) mg/dL POC Glucose (mg/dL) 130 H 167 H (75-99) mg/dL Calcium (8.4-10.2) mg/dL AST (17-59) U/L ALT (21-72) U/L Creatine Kinase 2624 H (55-170) U/L 06/02/17 06/02/17 06/02/17 Range/Units 03:07 04:24 04:24 WBC 18.2 H (3.8-10.6) k/uL Neutrophils # 13.9 H (1.3-7.7) k/uL ABG pH (7.35-7.45) ABG pCO2 (35-45) mmHg ABG pO2 (83-108) mmHg ABG HCO3 (21-25) mmol/L ABG Total CO2 (19-24) mmol/L ABG O2 Saturation (94-97) % Sodium 136 L (137-145) mmol/L Glucose 141 H (74-99) mg/dL POC Glucose (mg/dL) 119 H (75-99) mg/dL Calcium 7.8 L (8.4-10.2) mg/dL AST (17-59) U/L ALT (21-72) U/L Creatine Kinase (55-170) U/L 06/02/17 06/02/17 06/02/17 Range/Units 04:24 05:16 08:50 WBC (3.8-10.6) k/uL Neutrophils # (1.3-7.7) k/uL ABG pH 7.25 L (7.35-7.45) ABG pCO2 62 H (35-45) mmHg ABG pO2 80 L (83-108) mmHg ABG HCO3 26 H (21-25) mmol/L ABG Total CO2 28 H (19-24) mmol/L ABG O2 Saturation 93.0 L (94-97) % Sodium (137-145) mmol/L Glucose (74-99) mg/dL POC Glucose (mg/dL) 119 H (75-99) mg/dL Calcium (8.4-10.2) mg/dL AST 82 H (17-59) U/L ALT 98 H (21-72) U/L Creatine Kinase (55-170) U/L Microbiology - Last 24 Hours (Table) 06/01/17 07:55 Gram Stain - Preliminary Sputum Sputum Culture - Preliminary Assessment and Plan Plan: Impression: #1 Cardiopulmonary arrest secondary to ST segment elevation myocardial infarction with ventricular fibrillation. Status post stenting to the proximal LAD. #2 Acute hypoxic respiratory failure requiring intubation mechanical ventilation secondary to above. #3 Acute systolic congestive heart failure with estimated ejection fraction 35- 40%. #4 Acute anoxic brain injury based on slowing of the EEG and difficulty weaning. #5 Chronic and ongoing tobacco dependence. Plan: The patient was seen and evaluated by Dr. Crenshaw. His chest x-ray, labs and ABGs were all reviewed. We are recommending to wean off the Nimbex and the Diovan and go up on the Precedex trying to utilize only one level of sedation. We'll continue with daily interruption of sedation. We'll also continue with weaning trials. Based on his ABGs will increase the assist-control rate to 26 and increase the PEEP to 13 and attempt to wean down the FiO2. His overall prognosis remains guarded especially in regards to these suspected anoxic brain injury. We'll reevaluate the patient in the morning. If he is continued to have slow progress he may require tracheostomy and PEG tube placement. He did have another lengthy discussion with the patient's and brother again today. They are up-to-date in his current status. We will continue to follow and make further recommendations based on his clinical status. Critical care time 38 minutes. Time with Patient: Greater than 30
--- NOTE | 2017-06-02 10:57 | P.PN ---
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 EMS was notified and he was found to be in ventricular fibrillation without a pulse. He had defibrillation 2 with return of spontaneous circulation. It is unclear exactly how long his down time was but it appears to be less than 10-15 minutes. Initial EKG showed ST segment elevation. He was brought to the ER and a code STEMI was called. He was taken to the laborer electroplating and had a drug- eluting stent placed to the LAD is a had 100% occlusion. He was admitted to ICU and was intubated. He was found to have an elevated total cholesterol level , elevated liver enzymes, elevated creatinine. Critical care with consult for ventilator management. He was also noted to have a history of alcohol use. On the morning of 06/01 his sedation was held and he was awake and followed commands for me. He became increasingly agitated and they had to be placed on sedation. His oxygen requirement elevated. He was also started on a Nimbex drip. His blood pressure remained controlled. He was seen by neurology and had an EEG done which showed diffuse slowing, head CT was negative, neurology will continue to follow. Patient seen and examined at bedside, he is currently sedated and paralyzed, case discussed with nursing. No new events overnight as well as increasingly agitated throughout the day yesterday necessitating the use of propofol , Precedex, and nimbex. Objective - Vital Signs Vital signs: Vital Signs Temp 97.7 F 06/01/17 20:00 Pulse 90 06/02/17 10:00 Resp 26 H 06/02/17 10:00 BP 164/88 06/02/17 10:00 Pulse Ox 94 L 06/02/17 10:00 Intake & Output 06/01/17 06/02/17 06/02/17 18:59 06:59 18:59 Intake Total 2570.475 1720 597.951 Output Total 1310 675 155 Balance 3180.776 6782 442.951 Weight 99.3 kg 102.8 kg Intake: IV 850 925 300 Sodium Chloride 0.9% 1, 225 000 ml @ 100 mls/hr IV . Q10H [facility] Rx#:[id number] Sodium Chloride 0.9% 1, 625 925 300 000 ml @ 75 mls/hr IV . [id number] [facility] Rx#:[id number] Intake, IV Titration 1595.475 200 192.951 Amount Cisatracurium 200 mg In 125.243 0 74.757 Sodium Chloride 0.9% 180 ml @ 1 MCG/KG/MIN 5.95 mls/hr IV .Q24H [facility] Rx#: [id number] Dexmedetomidine/0.9% NaCl 70.232 200 (Pmx) 400 mcg In Empty Bag 1 bag @ Titrate IV . Q0M [facility] Rx#:[id number] Magnesium Sulfate-D5w Pmx 200 1 gm In Dextrose/Water 1 100ml.bag @ 100 mls/hr IVPB Q1H [facility] Rx#: [id number] Propofol 1,000 mg In 100 200.000 118.194 ml @ Titrate IV .Q0M [facility] Rx#:[id number] Sodium Chloride 0.9% 1, 1000 000 ml @ 999 mls/hr IV . Q1H1M [facility] Rx#:[id number] Tube Feeding 95 595 105 Other 30 Output: Gastric Drainage 900 Urine 410 675 155 Other: Voiding Method Indwelling Catheter Indwelling Catheter - Exam General: non toxic, no distress, appears at stated age, sedated on vent Derm: no rashes, no lesions Head: atraumatic, normocephalic, symmetric Eyes: EOMI, no lid lag, anicteric sclera ENT: Intubated Mouth: no lip lesion, ET tube in place Cardiovascular: S1S2 reg, no murmur, positive posterior tibial pulse bilateral, Lungs: CTA bilateral, no rhonchi, no rales , no accessory muscle use Abdominal: soft, nontender to palpation, no guarding, no appreciable organomegaly Ext: no gross muscle atrophy, no edema, no contractures Neuro: on paralytic Psych: on sedation and paralytic - Labs CBC & Chem 7: 06/02/17 04:24 06/02/17 04:24 Labs: Abnormal Lab Results - Last 24 Hours (Table) 06/01/17 06/01/17 06/01/17 Range/Units 05:35 14:38 20:36 WBC (3.8-10.6) k/uL Neutrophils # (1.3-7.7) k/uL ABG pH (7.35-7.45) ABG pCO2 (35-45) mmHg ABG pO2 (83-108) mmHg ABG HCO3 (21-25) mmol/L ABG Total CO2 (19-24) mmol/L ABG O2 Saturation (94-97) % Sodium (137-145) mmol/L Glucose (74-99) mg/dL POC Glucose (mg/dL) 130 H 167 H (75-99) mg/dL Calcium (8.4-10.2) mg/dL AST (17-59) U/L ALT (21-72) U/L Creatine Kinase 2624 H (55-170) U/L 06/02/17 06/02/17 06/02/17 Range/Units 03:07 04:24 04:24 WBC 18.2 H (3.8-10.6) k/uL Neutrophils # 13.9 H (1.3-7.7) k/uL ABG pH (7.35-7.45) ABG pCO2 (35-45) mmHg ABG pO2 (83-108) mmHg ABG HCO3 (21-25) mmol/L ABG Total CO2 (19-24) mmol/L ABG O2 Saturation (94-97) % Sodium 136 L (137-145) mmol/L Glucose 141 H (74-99) mg/dL POC Glucose (mg/dL) 119 H (75-99) mg/dL Calcium 7.8 L (8.4-10.2) mg/dL AST (17-59) U/L ALT (21-72) U/L Creatine Kinase (55-170) U/L 06/02/17 06/02/17 06/02/17 Range/Units 04:24 05:16 08:50 WBC (3.8-10.6) k/uL Neutrophils # (1.3-7.7) k/uL ABG pH 7.25 L (7.35-7.45) ABG pCO2 62 H (35-45) mmHg ABG pO2 80 L (83-108) mmHg ABG HCO3 26 H (21-25) mmol/L ABG Total CO2 28 H (19-24) mmol/L ABG O2 Saturation 93.0 L (94-97) % Sodium (137-145) mmol/L Glucose (74-99) mg/dL POC Glucose (mg/dL) 119 H (75-99) mg/dL Calcium (8.4-10.2) mg/dL AST 82 H (17-59) U/L ALT 98 H (21-72) U/L Creatine Kinase (55-170) U/L Microbiology - Last 24 Hours (Table) 06/01/17 07:55 Gram Stain - Preliminary Sputum Sputum Culture - Preliminary Assessment and Plan (1) STEMI (ST elevation myocardial infarction) Narrative/Plan: ASA, effient, lipitor, cardio recs, echo with cardiomyopathy prn nitro Status: Acute (2) Acute respiratory failure Narrative/Plan: Acute hypoxic respiratory fialure, Currently on vent, management per critical care, sedation management as per critical care Status: Acute (3) Ventricular fibrillation Narrative/Plan: off amio, due to 100% LAD occlusion, tele, cardio recs, TSH nonrevealing Status: Acute (4) Dyslipidemia Narrative/Plan: statin therapy Status: Acute (5) Alcohol abuse Narrative/Plan: any withdrawal will be treated with propofol or precedex at this time, if able to come off vent will then start symptom triggered therapy. Thiamine supplementation, follow Mg and Phos Status: Acute (6) Nicotine addiction Narrative/Plan: cessation encouraged. Status: Acute (7) Elevated CK Narrative/Plan: not diagnostic of rhabdo, down trending, no need to recheck Status: Acute Plan: New 06/02 Left sided PNA, likely aspiration - start zosyn - follow CXR - BD Ischemic cardiomyopathy, EF 35-40% - due to STEMI and cardiac arrest - ASA, lipitor, lopressor Resolved: Transamitis MOHSEN cardio pulmonary arrest Surrogate decision-maker Nasrin [phone] DVT prophylaxis: heparin sc Discused with: nursing, Anticipated discharge: 48- [address]: home A total of 45 minutes was spent on the care of this complex patient more than 50 % of the time was spent in counseling and care coordination.
[2017-06-02] MEDS: METOPROLOL TARTRATE 12.5 MG TAB PO SCH ×2 (11:48→21:00)
[2017-06-02] MEDS: MULTIVITAMINS, THERA 1 EACH TAB PO SCH (12:16)
[2017-06-02] MEDS: THIAMINE 100 MG TAB PO SCH ×2 (12:16→19:13)
[2017-06-02] MEDS: CISATRACURIUM 200 MG in SODIUM CHLORIDE 0.9% 180 ML IV SCH (12:30)
[2017-06-02] MEDS: SODIUM CHLORIDE 0.9% 1,000 ML IV SCH (12:31)
[2017-06-02 14:48] LABS: Glucose,Whole Blood 129 mg/dL (75-99)
[2017-06-02] MEDS: PIPERACILLIN-TAZOBACTAM 3.375 GM in DEXTROSE/WATER 1 50ML.BAG IVPB SCH (15:13)
[2017-06-02] MEDS: LORazepam 2 MG/ML SYRINGE IV PRN ×2 (18:05→21:41)
[2017-06-02 20:12] LABS: Glucose,Whole Blood 129 mg/dL (75-99)
[2017-06-02] MEDS: ATORVASTATIN 80 MG TAB OG-TUBE SCH (20:12)
[2017-06-03] MEDS: PROPOFOL 1,000 MG/100 ML VIAL IV SCH ×9 (00:22→20:30)
[2017-06-03] MEDS: ARTIFICIAL TEARS-HYPROMELLOSE DROPS 15 ML BTL BOTH EYES SCH ×5 (00:42→11:58)
[2017-06-03] MEDS: PIPERACILLIN-TAZOBACTAM 3.375 GM in DEXTROSE/WATER 1 50ML.BAG IVPB SCH ×4 (00:43→23:28)
[2017-06-03] MEDS: HEPARIN SODIUM,PORCINE 5,000 UNIT/ML 1 ML VIAL SQ SCH ×4 (00:43→23:26)
[2017-06-03] MEDS: INSULIN LISPRO (humaLOG) 300 UNIT/3 ML VIAL SQ SCH ×5 (02:33→23:27)
[2017-06-03 02:34] LABS: Glucose,Whole Blood 129 mg/dL (75-99)
[2017-06-03] MEDS: IPRATROPIUM-ALBUTEROL 3 ML NEB INHALATION SCH ×6 (02:51→22:57)
[2017-06-03] MEDS: SODIUM CHLORIDE 0.9% 1,000 ML IV SCH ×2 (03:00→20:09)
[2017-06-03] MEDS: HYDROmorphone 1 MG/ML 1 ML SYRINGE IVP PRN ×4 (03:13→20:47)
[2017-06-03] MEDS: LORazepam 2 MG/ML SYRINGE IV PRN ×4 (03:16→22:42)
[2017-06-03 04:14] LABS: ABG PCO2 40 mmHg (35-45); ABG PH 7.44 (7.35-7.45)
[2017-06-03 04:15] LABS: Basophils # (A) 0.1 k/uL (0-0.2); Basophils % (A) 0 %; CH 32.8; CHCM 34.1; Eosinophils # (A) 0.1 k/uL (0-0.7); Eosinophils % (A) 1 %; HCT 41.4 % (39.0-53.0); HDW 2.97; HGB 13.6 gm/dL (13.0-17.5); Luc # (Auto) 0.25; Luc % (Auto) 2; Lymphocytes # (A) 2.8 k/uL (1.0-4.8); Lymphocytes % (A) 21 %; MCH 31.8 pg (25.0-35.0); MCHC 32.9 g/dL (31.0-37.0); MCV 96.7 fL (80.0-100.0); Mean Platelet Volume 7.6; Monocytes # (A) 0.7 k/uL (0-1.0); Monocytes % (A) 5 %; Neutrophils # (A) 9.2 k/uL (1.3-7.7); Neutrophils % (A) 71 %; RBC 4.28 m/uL (4.30-5.90); RDW 14.7 % (11.5-15.5); WBC (Perox) 12.47
[2017-06-03 04:15] LABS: ABG Base Excess 2.9 mmol/L; ABG HCO3 27 mmol/L (21-25); ABG PO2 61 mmHg (83-108); ABG TCO2 28 mmol/L (19-24)
[2017-06-03 04:42] LABS: Anion Gap 5 mmol/L; Blood Urea Nitrogen 18 mg/dL (9-20); Calcium 7.8 mg/dL (8.4-10.2); Carbon Dioxide 27 mmol/L (22-30); Chloride 105 mmol/L (98-107); Glucose 100 mg/dL (74-99); Non-African American GFR(MDRD) >60 (>60 ml/min/1.73 sqM); Phosphorous 1.7 mg/dL (2.5-4.5); Potassium 4.2 mmol/L (3.5-5.1); Sodium 137 mmol/L (137-145)
[2017-06-03] MEDS ORDERED: SODIUM PHOSPHATE 10 MMOL in SODIUM CHLORIDE 0.9% 250 ML IVPB SCH (05:30)
--- NOTE | 2017-06-03 08:10 | XR ---
EXAMINATION TYPE: XR chest 1V DATE OF EXAM: 06/03/2017 COMPARISON: NONE HISTORY: Shortness of breath TECHNIQUE: Single frontal view of the chest is obtained. FINDINGS: Bilateral infiltrate and small right effusion. ET and NG tubes stable. Arthropathy shoulde rs. IMPRESSION: 1. Bilateral infiltrate and small effusion and now with interval development within the right lower l obe. Mild central venous congestion or pneumonitis in the differential.
[2017-06-03 08:32] LABS: ABG Base Excess 2.5 mmol/L; ABG HCO3 26 mmol/L (21-25); ABG Oxygen Saturation 97.7 % (94-97); ABG PCO2 37 mmHg (35-45); ABG PH 7.46 (7.35-7.45); ABG PO2 93 mmHg (83-108); ABG TCO2 27 mmol/L (19-24)
--- NOTE | 2017-06-03 08:53 | P.PN ---
Subjective This is a 41-year-old male who has no major medical history. He apparently had a cardiopulmonary arrest while worsening over the hospital. The patient apparently had ventricular fibrillation was defibrillated. 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 Catheterization revealed a totally occluded LAD and he had a stent placed. He is currently here on the ventilator. We tried weaning him this morning. We stopped his propofol. He became very agitated. The patient is currently still on the ventilator. We had to sedate him further with Precedex or dexmedetomidine and also give him a paralytic agent Nimbex. Currently the patient's on the ventilator. He's on the assist control mode at 20, Byam for 50 FiO2 up to 100% PEEP increased to 10. We'll titrate the FiO2 down. Blood gases showed a pO2 of 116 a pCO2 35 and a pH 7.46. This is consistent with hyperoxemia and a mild respiratory alkalosis. The patient's on Precedex currently appointment for mics. The propofol will be turned off. He is getting 9 IV at 75 mL an hour. Amiodarone is been turned off. We'll get some tube feeds started. The patient is seen again today 06/02/2017 in follow-up in the intensive care unit. He remains intubated and on the mechanical ventilator. Current settings are assist control of 20, tidal volume 450, FiO2 70% and a PEEP of 10. Morning blood gases reveal a P O2 of 80, pCO2 of 62 and a pH of 7.25. He remains on Nimbex at 2 mcg/kg/m, Precedex at 0.7 mcg/kg/m, propofol at 50 mcg/kg/m. He has a 0.9 normal saline at 75 mL per hour. He is being nourished with 2 Alejandro HN at 35 mL per hour with a goal of 45 mL per hour. His computed tomography scan of the head was negative for acute abnormalities. EEG did reveal slowing. He was seen by neurology. His prognosis is quite guarded at this point with concerns regarding suspected anoxic brain injury. His pF ratio is 114 and there is also concern of possible development of ARDS with concerns for possible aspiration. His chest x-ray reveals persistent left-sided infiltrate. Sputum culture is pending. Remains on bronchodilators every 4 hours. There is some mild central venous congestion as well. His echocardiogram did reveal moderately impaired left ventricular systolic function with an ejection fraction between 35 and 40%. The patient is seen again today 06/03/2017 in follow-up in the intensive care unit. He remains intubated and on the mechanical ventilator. His current settings are assist control of 26, tidal volume 450, FiO2 of 50% and a PEEP of 13. Initial blood gases revealed a PaO2 of 61, pCO2 of 40 and a pH of 7.44. His FiO2 was increased to 60% and a follow-up blood gas on the 60% and a pO2 had improved to 93, pCO2 of 37 and a pH of 7.46. He remains on 0.9 normal saline at 75 MLS per hour, propofol at 75 mcg/kg/m. He is being nourished with 2 Alejandro HN tube feedings at 35 mL per hour which is his goal. His chest x-ray continues to show a right lower lobe consolidation and some atelectasis in the left lung base. Sputum so far showing strep pyogenes. He does have a temp of 99.5 axillary, no tachycardia and the white count 13. Objective - Vital Signs Vital signs: Vital Signs Temp 99.5 F 06/03/17 08:00 Pulse 96 06/03/17 08:00 Resp 10 L 06/03/17 08:00 BP 101/48 06/03/17 08:00 Pulse Ox 98 06/03/17 08:00 Intake & Output 06/02/17 06/03/17 06/03/17 18:59 06:59 18:59 Intake Total 3250.594 2073.821 110 Output Total 470 1045 40 Balance 1292.291 786.821 70 Weight 102.8 kg 102.9 kg Intake: IV 300 Sodium Chloride 0.9% 1, 300 000 ml @ 75 mls/hr IV . [id number] [facility] Rx#:[id number] Intake, IV Titration 9486.487 3644.821 75 Amount Cisatracurium 200 mg In 74.757 Sodium Chloride 0.9% 180 ml @ 1 MCG/KG/MIN 5.95 mls/hr IV .Q24H [facility] Rx#: [id number] Piperacillin-Tazobactam 3 50 62.5 .375 gm In Dextrose/Water 1 50ml.bag @ 12.5 mls/hr IVPB Q8HR [facility] Rx#: [id number] Propofol 1,000 mg In 100 292.534 449.321 ml @ Titrate IV .Q0M [facility] Rx#:[id number] Sodium Chloride 0.9% 1, 600 900 75 000 ml @ 75 mls/hr IV . [id number] [facility] Rx#:[id number] Tube Feeding 385 420 35 Other 60 Output: Urine 470 1045 40 Other: Voiding Method Indwelling Catheter Indwelling Catheter - Exam No acute distress, not oriented. Currently sedated. Has an orally placed NG tube and an orally placed endotracheal tube. HEENT examination is grossly unremarkable. Neck supple. Full range of motion. Cardiovascular examination reveals regular rhythm rate. S1-S2 normal. No murmur. Lungs reveal few scattered rhonchi. Crackles in the right posterior base. Breath sounds are diminished. Abdomen soft bowel sounds are heard. Extremities are intact. No cyanosis clubbing or edema. Skin without rash. Neurologic examination cannot be adequately performed. - Labs CBC & Chem 7: 06/03/17 03:51 06/03/17 03:51 Labs: Abnormal Lab Results - Last 24 Hours (Table) 06/02/17 06/02/17 06/02/17 Range/Units 04:24 08:50 14:45 WBC (3.8-10.6) k/uL RBC (4.30-5.90) m/uL Neutrophils # (1.3-7.7) k/uL ABG pH (7.35-7.45) ABG pO2 (83-108) mmHg ABG HCO3 (21-25) mmol/L ABG Total CO2 (19-24) mmol/L ABG O2 Saturation (94-97) % Glucose (74-99) mg/dL POC Glucose (mg/dL) 119 H 129 H (75-99) mg/dL Calcium (8.4-10.2) mg/dL Phosphorus (2.5-4.5) mg/dL AST 82 H (17-59) U/L ALT 98 H (21-72) U/L 06/02/17 06/03/17 06/03/17 Range/Units 20:10 02:31 03:51 WBC 13.0 H (3.8-10.6) k/uL RBC 4.28 L (4.30-5.90) m/uL Neutrophils # 9.2 H (1.3-7.7) k/uL ABG pH (7.35-7.45) ABG pO2 (83-108) mmHg ABG HCO3 (21-25) mmol/L ABG Total CO2 (19-24) mmol/L ABG O2 Saturation (94-97) % Glucose (74-99) mg/dL POC Glucose (mg/dL) 129 H 129 H (75-99) mg/dL Calcium (8.4-10.2) mg/dL Phosphorus (2.5-4.5) mg/dL AST (17-59) U/L ALT (21-72) U/L 06/03/17 06/03/17 06/03/17 Range/Units 03:51 04:03 08:25 WBC (3.8-10.6) k/uL RBC (4.30-5.90) m/uL Neutrophils # (1.3-7.7) k/uL ABG pH 7.46 H (7.35-7.45) ABG pO2 61 L (83-108) mmHg ABG HCO3 27 H 26 H (21-25) mmol/L ABG Total CO2 28 H 27 H (19-24) mmol/L ABG O2 Saturation 92.0 L 97.7 H (94-97) % Glucose 100 H (74-99) mg/dL POC Glucose (mg/dL) (75-99) mg/dL Calcium 7.8 L (8.4-10.2) mg/dL Phosphorus 1.7 L (2.5-4.5) mg/dL AST (17-59) U/L ALT (21-72) U/L Microbiology - Last 24 Hours (Table) 06/01/17 07:55 Gram Stain - Preliminary Sputum Sputum Culture - Preliminary Strep pyogenes (grp a) Assessment and Plan Plan: Impression: #1 Cardiopulmonary arrest secondary to ST segment elevation myocardial infarction with ventricular fibrillation. Status post stenting to the proximal LAD. #2 Acute hypoxic respiratory failure requiring intubation mechanical ventilation secondary to above and with the development of suspected ARDS and right lower lobe consolidation secondary to suspected aspiration pneumonia. Failure to wean thus far suspect anoxic brain injury. #3 Acute systolic congestive heart failure with estimated ejection fraction 35- 40%. #4 Acute anoxic brain injury based on slowing of the EEG and difficulty weaning. #5 Chronic and ongoing tobacco dependence. #6 Daily alcohol use. Plan: The patient was seen and evaluated by Dr. Crenshaw. His chest x-ray, ABGs and labs were reviewed. We will continue to titrate down the FiO2 well maintain O2 saturations greater than 92%. Once that is down to 40% we will decrease the PEEP from 13 down to 10 if possible. We'll consult surgical services for tracheostomy and PEG tube placement as the patient has had failure to wean thus far. We'll continue with his current medications including Zosyn and await final culture sensitivity. He did discuss the plans with the patient's and family again today. They are agreeable to the plan. Continue to monitor him here closely in the intensive care unit. We will continue to follow. Critical care time 36 minutes. Time with Patient: Greater than 30
[2017-06-03] MEDS: CISATRACURIUM 200 MG in SODIUM CHLORIDE 0.9% 180 ML IV SCH (10:13)
[2017-06-03] MEDS: PANTOPRAZOLE 40 MG/10 ML VIAL IVP SCH (10:16)
[2017-06-03] MEDS: CHLORHEXIDINE GLUCONATE 15 ML CUP MUCOUS MEM SCH ×2 (10:16→20:14)
[2017-06-03 11:05] LABS: Glucose,Whole Blood 118 mg/dL (75-99)
[2017-06-03] MEDS: ASPIRIN 325 MG TAB PO SCH (11:45)
[2017-06-03] MEDS: PRASUGREL 10 MG TAB PO SCH (11:46)
[2017-06-03] MEDS: METOPROLOL TARTRATE 12.5 MG TAB PO SCH ×2 (11:46→20:14)
[2017-06-03] MEDS: THIAMINE 100 MG TAB PO SCH ×2 (11:57→18:13)
[2017-06-03] MEDS: MULTIVITAMINS, THERA 1 EACH TAB PO SCH (11:57)
--- NOTE | 2017-06-03 12:05 | P.GSCN ---
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 His reports that he does not follow with a primary care physician on a regular basis. The patient has no major medical history, although he does have a family history of premature coronary artery disease as his dad at age 53 from a myocardial infarction. The patient does have a history of smoking 1-1-1/ 2 packs per day, alcohol use 1-2 drinks per day, and marijuana use 2-3 joints per day. On 05/31/2017 while working on the job he collapsed, EMS was initiated. He apparently was found to be in ventricular fibrillation and was defibrillated 2 and was subsequently intubated on scene. 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 VIANNEY Triplett from cardiology. His heart catheterization demonstrated a total occlusion of his left anterior descending coronary artery. The patient did have a stent placed to his left anterior descending coronary artery with good results. According to the patient's he did have a down time at his work site of about 5-6 minutes. Currently, the patient remains intubated with mechanical ventilator support and is sedated on Diprivan drip. Dr. Jasso has been consulted for placement of a tracheostomy and percutaneous gastrostomy tube placement. Review of Systems A 14 point review of system was completed and was negative except as mentioned in the HPI Past Medical History Past Medical History: Coronary Artery Disease (CAD), Myocardial Infarction ([place]) Additional Past Medical History / Comment(s): Cardiopulmonary arrest outside hospital 05/31/17 - ventricular fibrillation, shocked X2 and intubated by EMS, stent placed to his LAD. Last Myocardial Infarction Date:: 05/31/17 History of Any Multi-Drug Resistant Organisms: None Reported Past Surgical History: Heart Catheterization With Stent Additional Past Surgical History / Comment(s): Anal wart removal 10 years ago; right hand surgery apx. 1987 Past Anesthesia/Blood Transfusion Reactions: No Reported Reaction Date of Last Stent Placement:: 05/31/17 to his left anterior descending coronary artery. Past Psychological History: No Psychological Hx Reported Smoking Status: Current every day smoker (1-1-1/2 pack per day.) Past Alcohol Use History: Daily (1-2 drinks daily, Rum and Coke.) Past Drug Use History: Marijuana (2-3 joints daily.) - Past Family History Father Family Medical History: Coronary Artery Disease (CAD), Myocardial Infarction ([place] ) Additional Family Medical History / Comment(s): Uncle with "thickening of heart muscle"; idiopathic hypertrophic subaortic stenosis; dad at age 53 from a heart attack Mother Family Medical History: No Reported History Medications and Allergies Home Medications Medication Instructions Recorded Confirmed Type Aspirin 162 mg PO ONCE 05/31/17 05/31/17 History Allergies Allergy/AdvReac Type Severity Reaction Status Date / Time No Known Allergies Allergy Verified 05/31/17 18:33 Surgical - Exam Vital Signs Pulse Resp BP Pulse Ox 164 H 12 135/97 98 05/31/17 11:16 05/31/17 11:16 05/31/17 11:16 05/31/17 11:16 - General well developed, well nourished, obese - Eyes PERRL - ENT normal pinna, normal nares, normal mucosa - Neck no masses, no bruits, trachea midline, no lymphadectomy, no venous distension - Respiratory Coarse rhonchi throughout, diminished bilateral bases. Respirations are symmetrical and nonlabored with mechanical ventilator support. Current ventilator settings are as follows: AC 26, TV 450, FiO2 50%, PEEP 5. Patient remains intubated with a #8 ET tube. - Cardiovascular Regular rhythm and rate. S1 and S2 present, negative for S3, gallop or murmur. Bedside telemetry showing normal sinus rhythm heart rate 91. No edema peripheral present. Knee-high TAWANNA hose and sequential compression devices in place to his bilateral lower extremities. Right groin puncture site clean and dry soft palpate. Peripheral pulses palpable. - Abdomen Soft, nondistended. Active bowel sounds to all 4 abdominal quadrants. OG tube in place with 2 Alejandro HN infusing at goal rate of 35 mL per hour with automatic water flushes of 30 mL per every 4 hours. - Genitourinary Clear, yellow urine. Brown catheter for accurate I&O. - Rectum Deferred - Integumentary Tattoos to his bilateral shoulders and chest. no rash, no growths, no abnormal pigmentation - Neurologic Face is symmetrical, he remains sedated on Diprivan drip. - Musculoskeletal He is sedated and on bed rest. - Psychiatric other (Curently sedated on diprivan drip.) Results - Labs 06/03/17 03:51 06/03/17 03:51 Abnormal Lab Results - Last 24 Hours (Table) 06/02/17 06/02/17 06/03/17 Range/Units 14:45 20:10 02:31 WBC (3.8-10.6) k/uL RBC (4.30-5.90) m/uL Neutrophils # (1.3-7.7) k/uL ABG pH (7.35-7.45) ABG pO2 (83-108) mmHg ABG HCO3 (21-25) mmol/L ABG Total CO2 (19-24) mmol/L ABG O2 Saturation (94-97) % Glucose (74-99) mg/dL POC Glucose (mg/dL) 129 H 129 H 129 H (75-99) mg/dL Calcium (8.4-10.2) mg/dL Phosphorus (2.5-4.5) mg/dL 06/03/17 06/03/17 06/03/17 Range/Units 03:51 03:51 04:03 WBC 13.0 H (3.8-10.6) k/uL RBC 4.28 L (4.30-5.90) m/uL Neutrophils # 9.2 H (1.3-7.7) k/uL ABG pH (7.35-7.45) ABG pO2 61 L (83-108) mmHg ABG HCO3 27 H (21-25) mmol/L ABG Total CO2 28 H (19-24) mmol/L ABG O2 Saturation 92.0 L (94-97) % Glucose 100 H (74-99) mg/dL POC Glucose (mg/dL) (75-99) mg/dL Calcium 7.8 L (8.4-10.2) mg/dL Phosphorus 1.7 L (2.5-4.5) mg/dL 06/03/17 Range/Units 08:25 WBC (3.8-10.6) k/uL RBC (4.30-5.90) m/uL Neutrophils # (1.3-7.7) k/uL ABG pH 7.46 H (7.35-7.45) ABG pO2 (83-108) mmHg ABG HCO3 26 H (21-25) mmol/L ABG Total CO2 27 H (19-24) mmol/L ABG O2 Saturation 97.7 H (94-97) % Glucose (74-99) mg/dL POC Glucose (mg/dL) (75-99) mg/dL Calcium (8.4-10.2) mg/dL Phosphorus (2.5-4.5) mg/dL Microbiology - Last 24 Hours (Table) 06/01/17 07:55 Gram Stain - Final Sputum Sputum Culture - Final Strep pyogenes (grp a) Diabetes panel 06/03/17 Range/Units 03:51 Sodium 137 (137-145) mmol/L Potassium 4.2 (3.5-5.1) mmol/L Chloride 105 (98-107) mmol/L Carbon Dioxide 27 (22-30) mmol/L BUN 18 (9-20) mg/dL Creatinine 0.86 (0.66-1.25) mg/dL Glucose 100 H (74-99) mg/dL Calcium 7.8 L (8.4-10.2) mg/dL Calcium panel 06/03/17 Range/Units 03:51 Calcium 7.8 L (8.4-10.2) mg/dL Phosphorus 1.7 L (2.5-4.5) mg/dL Pituitary panel 06/03/17 Range/Units 03:51 Sodium 137 (137-145) mmol/L Potassium 4.2 (3.5-5.1) mmol/L Chloride 105 (98-107) mmol/L Carbon Dioxide 27 (22-30) mmol/L BUN 18 (9-20) mg/dL Creatinine 0.86 (0.66-1.25) mg/dL Glucose 100 H (74-99) mg/dL Calcium 7.8 L (8.4-10.2) mg/dL Adrenal panel 06/03/17 Range/Units 03:51 Sodium 137 (137-145) mmol/L Potassium 4.2 (3.5-5.1) mmol/L Chloride 105 (98-107) mmol/L Carbon Dioxide 27 (22-30) mmol/L BUN 18 (9-20) mg/dL Creatinine 0.86 (0.66-1.25) mg/dL Glucose 100 H (74-99) mg/dL Calcium 7.8 L (8.4-10.2) mg/dL - Imaging Comments: Computed tomography scan of the brain results reviewed. Chest x-ray: report reviewed, image reviewed EKG: image reviewed Additional studies: 2-D echocardiogram, cardiac catheterization results reviewed. Assessment and Plan (1) Acute respiratory failure Status: Acute (2) Alcohol abuse Status: Acute (3) Anoxic encephalopathy Status: Acute (4) Cardiopulmonary arrest with successful resuscitation Status: Acute (5) Dyslipidemia Status: Acute (6) Elevated CK Status: Acute (7) Nicotine addiction Status: Acute (8) STEMI (ST elevation myocardial infarction) Status: Acute (9) Stented coronary artery Status: Acute (10) Ventricular fibrillation Status: Acute Plan: The patient was seen and examined, his chart and diagnostics were reviewed. His is was discussed with Dr. Jasso. At this time the patient remains on Effient as he has had a stent placed to his left anterior descending coronary artery. Dr. Jasso will discuss with pulmonary medicine and cardiology re risk adjustment for tracheostomy and PEG tube placement while the patient is on Effient. We will hold on tracheostomy and PEG tube placement at this time and will reevaluate early next week. Thank you Dr. Crenshaw for this consult and we look forward to working with you in the care of this patient. Time with Patient: Greater than 30 <Petey Jasso - Last Filed: 06/04/17 09:01> History of Present Illness History of present illness: I discussed the case in detail with Dr. Dimas. The Effient makes a tracheostomy at this time dangerous. We will readdress the issue early next week. Continue with standard oral endotracheal intubation for now. Surgical - Exam Osteopathic Statement: *. No significant issues noted on an osteopathic structural exam other than those noted in the History and Physical/Consult. Vital Signs Pulse Resp BP Pulse Ox 164 H 12 135/97 98 05/31/17 11:16 05/31/17 11:16 05/31/17 11:16 05/31/17 11:16 Results - Labs 06/04/17 05:19 06/04/17 05:19 Abnormal Lab Results - Last 24 Hours (Table) 06/03/17 06/03/17 06/03/17 Range/Units 11:03 18:12 23:25 RBC (4.30-5.90) m/uL Hgb (13.0-17.5) gm/dL Hct (39.0-53.0) % ABG pH (7.35-7.45) ABG pO2 (83-108) mmHg ABG HCO3 (21-25) mmol/L ABG Total CO2 (19-24) mmol/L Glucose (74-99) mg/dL POC Glucose (mg/dL) 118 H 107 H 110 H (75-99) mg/dL Calcium (8.4-10.2) mg/dL Total Protein (6.3-8.2) g/dL Albumin (3.5-5.0) g/dL 06/04/17 06/04/17 06/04/17 Range/Units 04:19 05:19 05:19 RBC 3.97 L (4.30-5.90) m/uL Hgb 12.6 L (13.0-17.5) gm/dL Hct 38.4 L (39.0-53.0) % ABG pH 7.47 H (7.35-7.45) ABG pO2 71 L (83-108) mmHg ABG HCO3 28 H (21-25) mmol/L ABG Total CO2 29 H (19-24) mmol/L Glucose 106 H (74-99) mg/dL POC Glucose (mg/dL) (75-99) mg/dL Calcium 8.2 L (8.4-10.2) mg/dL Total Protein 5.4 L (6.3-8.2) g/dL Albumin 2.8 L (3.5-5.0) g/dL 06/04/17 Range/Units 05:40 RBC (4.30-5.90) m/uL Hgb (13.0-17.5) gm/dL Hct (39.0-53.0) % ABG pH (7.35-7.45) ABG pO2 (83-108) mmHg ABG HCO3 (21-25) mmol/L ABG Total CO2 (19-24) mmol/L Glucose (74-99) mg/dL POC Glucose (mg/dL) 118 H (75-99) mg/dL Calcium (8.4-10.2) mg/dL Total Protein (6.3-8.2) g/dL Albumin (3.5-5.0) g/dL Microbiology - Last 24 Hours (Table) 06/01/17 07:55 Gram Stain - Final Sputum Sputum Culture - Final Strep pyogenes (grp a) Diabetes panel 06/04/17 Range/Units 05:19 Sodium 137 (137-145) mmol/L Potassium 4.2 (3.5-5.1) mmol/L Chloride 105 (98-107) mmol/L Carbon Dioxide 27 (22-30) mmol/L BUN 18 (9-20) mg/dL Creatinine 0.70 (0.66-1.25) mg/dL Glucose 106 H (74-99) mg/dL Calcium 8.2 L (8.4-10.2) mg/dL AST 32 (17-59) U/L ALT 53 (21-72) U/L Alkaline Phosphatase 72 (38-126) U/L Total Protein 5.4 L (6.3-8.2) g/dL Albumin 2.8 L (3.5-5.0) g/dL Calcium panel 06/04/17 Range/Units 05:19 Calcium 8.2 L (8.4-10.2) mg/dL Phosphorus 2.9 (2.5-4.5) mg/dL Albumin 2.8 L (3.5-5.0) g/dL Pituitary panel 06/04/17 Range/Units 05:19 Sodium 137 (137-145) mmol/L Potassium 4.2 (3.5-5.1) mmol/L Chloride 105 (98-107) mmol/L Carbon Dioxide 27 (22-30) mmol/L BUN 18 (9-20) mg/dL Creatinine 0.70 (0.66-1.25) mg/dL Glucose 106 H (74-99) mg/dL Calcium 8.2 L (8.4-10.2) mg/dL Adrenal panel 06/04/17 Range/Units 05:19 Sodium 137 (137-145) mmol/L Potassium 4.2 (3.5-5.1) mmol/L Chloride 105 (98-107) mmol/L Carbon Dioxide 27 (22-30) mmol/L BUN 18 (9-20) mg/dL Creatinine 0.70 (0.66-1.25) mg/dL Glucose 106 H (74-99) mg/dL Calcium 8.2 L (8.4-10.2) mg/dL Total Bilirubin 0.8 (0.2-1.3) mg/dL AST 32 (17-59) U/L ALT 53 (21-72) U/L Alkaline Phosphatase 72 (38-126) U/L Total Protein 5.4 L (6.3-8.2) g/dL Albumin 2.8 L (3.5-5.0) g/dL
--- NOTE | 2017-06-03 13:46 | P.PN ---
Subjective Still intubated. Minimal purposeful responsiveness Post anterior wall SC Status post stenting proximal LAD Chronic distal LAD stenosis with collaterals Blood pressure 103/50 minutes of his mercury, pulse rate 88 beats a minute afebrile Breath sounds are reduced bilaterally Heart sounds are soft no murmurs no gallops Abdomen soft nontender Extremities warm no edema Impression Acute anterior wall SC, out of hospital cardiac arrest, VF, requiring 2 shocks Very slow neurologic recovery (Ejection fraction 35-40% Plan Continue aspirin and Plavix and resume low-dose beta blockers continue statins Objective - Vital Signs Vital signs: Vital Signs Temp 98.2 F 06/03/17 12:00 Pulse 88 06/03/17 13:00 Resp 27 H 06/03/17 13:00 BP 103/50 06/03/17 13:00 Pulse Ox 97 06/03/17 13:00 Intake & Output 06/02/17 06/03/17 06/03/17 18:59 06:59 18:59 Intake Total 9127.721 3234.821 1086.655 Output Total 470 1045 415 Balance 1292.291 886.821 671.655 Weight 102.8 kg 102.9 kg 102.9 kg Intake: IV 300 Sodium Chloride 0.9% 1, 300 000 ml @ 75 mls/hr IV . [id number] JENELLE Rx#:[id number] Intake, IV Titration 2773.644 9343.821 621.655 Amount Cisatracurium 200 mg In 74.757 Sodium Chloride 0.9% 180 ml @ 1 MCG/KG/MIN 5.95 mls/hr IV .Q24H JENELLE Rx#: [id number] Piperacillin-Tazobactam 3 50 62.5 50 .375 gm In Dextrose/Water 1 50ml.bag @ 12.5 mls/hr IVPB Q8HR JENELLE Rx#: [id number] Propofol 1,000 mg In 100 292.534 549.321 46.655 ml @ Titrate IV .Q0M JENELLE Rx#:[id number] Sodium Chloride 0.9% 1, 600 900 525 000 ml @ 75 mls/hr IV . [id number] JENELLE Rx#:[id number] Tube Feeding 385 420 325 Other 60 140 Output: Urine 470 1045 415 Other: Voiding Method Indwelling Catheter Indwelling Catheter Indwelling Catheter - Labs CBC & Chem 7: 08/24/17 03:51 06/03/17 03:51 Labs: Abnormal Lab Results - Last 24 Hours (Table) 06/02/17 06/02/17 06/03/17 Range/Units 14:45 20:10 02:31 WBC (3.8-10.6) k/uL RBC (4.30-5.90) m/uL Neutrophils # (1.3-7.7) k/uL ABG pH (7.35-7.45) ABG pO2 (83-108) mmHg ABG HCO3 (21-25) mmol/L ABG Total CO2 (19-24) mmol/L ABG O2 Saturation (94-97) % Glucose (74-99) mg/dL POC Glucose (mg/dL) 129 H 129 H 129 H (75-99) mg/dL Calcium (8.4-10.2) mg/dL Phosphorus (2.5-4.5) mg/dL 06/03/17 06/03/17 06/03/17 Range/Units 03:51 03:51 04:03 WBC 13.0 H (3.8-10.6) k/uL RBC 4.28 L (4.30-5.90) m/uL Neutrophils # 9.2 H (1.3-7.7) k/uL ABG pH (7.35-7.45) ABG pO2 61 L (83-108) mmHg ABG HCO3 27 H (21-25) mmol/L ABG Total CO2 28 H (19-24) mmol/L ABG O2 Saturation 92.0 L (94-97) % Glucose 100 H (74-99) mg/dL POC Glucose (mg/dL) (75-99) mg/dL Calcium 7.8 L (8.4-10.2) mg/dL Phosphorus 1.7 L (2.5-4.5) mg/dL 06/03/17 06/03/17 Range/Units 08:25 11:03 WBC (3.8-10.6) k/uL RBC (4.30-5.90) m/uL Neutrophils # (1.3-7.7) k/uL ABG pH 7.46 H (7.35-7.45) ABG pO2 (83-108) mmHg ABG HCO3 26 H (21-25) mmol/L ABG Total CO2 27 H (19-24) mmol/L ABG O2 Saturation 97.7 H (94-97) % Glucose (74-99) mg/dL POC Glucose (mg/dL) 118 H (75-99) mg/dL Calcium (8.4-10.2) mg/dL Phosphorus (2.5-4.5) mg/dL Microbiology - Last 24 Hours (Table) 06/01/17 07:55 Gram Stain - Final Sputum Sputum Culture - Final Strep pyogenes (grp a)
[2017-06-03] MEDS ORDERED: ARTIFICIAL TEARS-HYPROMELLOSE DROPS 15 ML BTL BOTH EYES PRN (13:48)
--- NOTE | 2017-06-03 18:07 | P.PN ---
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 EMS was notified and he was found to be in ventricular fibrillation without a pulse. He had defibrillation 2 with return of spontaneous circulation. It is unclear exactly how long his down time was but it appears to be less than 10-15 minutes. Initial EKG showed ST segment elevation. He was brought to the ER and a code STEMI was called. 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 He was admitted to ICU and was intubated. He was found to have an elevated total cholesterol level , elevated liver enzymes, elevated creatinine. Critical care with consult for ventilator management. He was also noted to have a history of alcohol use. On the morning of 06/01 his sedation was held and he was awake and followed commands for me. He became increasingly agitated and they had to be placed on sedation. His oxygen requirement elevated. He was also started on a Nimbex drip. His blood pressure remained controlled. He was seen by neurology and had an EEG done which showed diffuse slowing, head CT was negative, neurology will continue to follow. Patient has been seen and examined this morning, intubated and sedated. Objective - Vital Signs Vital signs: Vital Signs Temp 99.5 F 06/03/17 08:00 Pulse 96 06/03/17 08:00 Resp 10 L 06/03/17 08:00 BP 101/48 06/03/17 08:00 Pulse Ox 98 06/03/17 08:00 Intake & Output 06/02/17 06/03/17 06/03/17 18:59 06:59 18:59 Intake Total 0485.684 1936.821 110 Output Total 470 1045 40 Balance 1292.291 786.821 70 Weight 102.8 kg 102.9 kg Intake: IV 300 Sodium Chloride 0.9% 1, 300 000 ml @ 75 mls/hr IV . [id number] JENELLE Rx#:[id number] Intake, IV Titration 5733.481 9054.821 75 Amount Cisatracurium 200 mg In 74.757 Sodium Chloride 0.9% 180 ml @ 1 MCG/KG/MIN 5.95 mls/hr IV .Q24H JENELLE Rx#: [id number] Piperacillin-Tazobactam 3 50 62.5 .375 gm In Dextrose/Water 1 50ml.bag @ 12.5 mls/hr IVPB Q8HR JENELLE Rx#: [id number] Propofol 1,000 mg In 100 292.534 449.321 ml @ Titrate IV .Q0M JENELLE Rx#:[id number] Sodium Chloride 0.9% 1, 600 900 75 000 ml @ 75 mls/hr IV . [id number] JENELLE Rx#:[id number] Tube Feeding 385 420 35 Other 60 Output: Urine 470 1045 40 Other: Voiding Method Indwelling Catheter Indwelling Catheter - Exam General: non toxic, no distress, intubated and sedated Derm: no rashes, no lesions Head: atraumatic, normocephalic Eyes: EOMI, no lid lag, anicteric sclera ENT: Intubated Mouth: no lip lesion, ET tube in place Cardiovascular: S1S2 reg, no murmur Lungs: CTA bilateral, no rhonchi, no rales , no accessory muscle use, diminished Abdominal: soft, nontender to palpation, no guarding, no appreciable organomegaly Ext: no gross muscle atrophy, no edema, - Labs CBC & Chem 7: 06/03/17 03:51 06/03/17 03:51 Labs: Abnormal Lab Results - Last 24 Hours (Table) 06/02/17 06/02/17 06/02/17 Range/Units 04:24 08:50 14:45 WBC (3.8-10.6) k/uL RBC (4.30-5.90) m/uL Neutrophils # (1.3-7.7) k/uL ABG pH (7.35-7.45) ABG pO2 (83-108) mmHg ABG HCO3 (21-25) mmol/L ABG Total CO2 (19-24) mmol/L ABG O2 Saturation (94-97) % Glucose (74-99) mg/dL POC Glucose (mg/dL) 119 H 129 H (75-99) mg/dL Calcium (8.4-10.2) mg/dL Phosphorus (2.5-4.5) mg/dL AST 82 H (17-59) U/L ALT 98 H (21-72) U/L 06/02/17 06/03/17 06/03/17 Range/Units 20:10 02:31 03:51 WBC 13.0 H (3.8-10.6) k/uL RBC 4.28 L (4.30-5.90) m/uL Neutrophils # 9.2 H (1.3-7.7) k/uL ABG pH (7.35-7.45) ABG pO2 (83-108) mmHg ABG HCO3 (21-25) mmol/L ABG Total CO2 (19-24) mmol/L ABG O2 Saturation (94-97) % Glucose (74-99) mg/dL POC Glucose (mg/dL) 129 H 129 H (75-99) mg/dL Calcium (8.4-10.2) mg/dL Phosphorus (2.5-4.5) mg/dL AST (17-59) U/L ALT (21-72) U/L 06/03/17 06/03/17 06/03/17 Range/Units 03:51 04:03 08:25 WBC (3.8-10.6) k/uL RBC (4.30-5.90) m/uL Neutrophils # (1.3-7.7) k/uL ABG pH 7.46 H (7.35-7.45) ABG pO2 61 L (83-108) mmHg ABG HCO3 27 H 26 H (21-25) mmol/L ABG Total CO2 28 H 27 H (19-24) mmol/L ABG O2 Saturation 92.0 L 97.7 H (94-97) % Glucose 100 H (74-99) mg/dL POC Glucose (mg/dL) (75-99) mg/dL Calcium 7.8 L (8.4-10.2) mg/dL Phosphorus 1.7 L (2.5-4.5) mg/dL AST (17-59) U/L ALT (21-72) U/L Microbiology - Last 24 Hours (Table) 06/01/17 07:55 Gram Stain - Preliminary Sputum Sputum Culture - Preliminary Strep pyogenes (grp a) Assessment and Plan (1) Acute respiratory failure Status: Acute (2) Anoxic encephalopathy Status: Acute (3) Cardiopulmonary arrest with successful resuscitation Status: Acute (4) Dyslipidemia Status: Acute (5) Nicotine addiction Status: Acute (6) STEMI (ST elevation myocardial infarction) Status: Acute (7) Ventricular fibrillation Status: Acute (8) MOHSEN (acute kidney injury) Status: Resolved (9) Alcohol abuse Status: Acute Plan: Cardiopulmonary arrest secondary to ST segment elevation myocardial infarction with ventricular fibrillation. Status post PCI with stent placement to the proximal LAD. Continue medical management per cardiology. Acute hypoxic respiratory failure, VDRF Suspected ARDS/ aspiration pneumonia. Sputum culture positive for Strep. Pyogenes, continue IV Zosyn. Failure to wean, plan for PEG and trach per intensinivist. Acute anoxic brain injury, neurology input appreciated. Tobacco abuse. Alcohol abuse. DVT prophylaxis.
[2017-06-03 18:14] LABS: Glucose,Whole Blood 107 mg/dL (75-99)
[2017-06-03] MEDS: ATORVASTATIN 80 MG TAB OG-TUBE SCH (20:14)
[2017-06-03 23:28] LABS: Glucose,Whole Blood 110 mg/dL (75-99)
[2017-06-04] MEDS: PROPOFOL 1,000 MG/100 ML VIAL IV SCH ×9 (00:27→23:28)
--- NOTE | 2017-06-04 00:43 | P.PN ---
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 When EMS arrived at the job site the patient was in ventricular fibrillation without a pulse. He was defibrillated 2 and was transported to the emergency room where he was intubated. He was then taken to the cardiac Release And Technical Records Clerk as his EKG did reveal ST segment elevation. He had a drug-eluting stent placed in the LAD which had 100 % occlusion. He was then stabilized and then transferred to the intensive care unit for further management. The patient remains intubated on the ventilator. He remains on a Diprivan drip. Apparently when they have attempted to wean him he becomes very agitated and combative. He did undergo a routine EEG on admission which was negative for any acute changes. He underwent a routine EEG initially which did reveal diffuse slowing. We are recommending a follow-up EEG to be done tomorrow morning for comparison and long-term prognosis. The patient does respond to painful stimuli only minimally. Cardiology continues to follow him closely as well. He is status post recent anterior wall OK. He is showing very slow recovery in terms of his neurological status. For this reason we have recommended a follow-up EEG to be done tomorrow for comparison to his previous study. His has been updated on his overall poor neurological status at this time. She is aware that his prognosis remains very guarded. He will need daily assessment of his overall neurological status to see if he is making improvement. We will continue close neurological follow-up with this patient in the intensive care unit. His overall prognosis at this time remains very guarded. Objective - Vital Signs Vital signs: Vital Signs Temp 98.2 F 06/03/17 12:00 Pulse 79 06/03/17 16:00 Resp 26 H 06/03/17 16:00 BP 90/48 06/03/17 16:00 Pulse Ox 97 06/03/17 16:00 Intake & Output 06/02/17 06/03/17 06/03/17 18:59 06:59 18:59 Intake Total 5590.118 7388.821 1691.655 Output Total 470 1045 870 Balance 1292.291 886.821 821.655 Weight 102.8 kg 102.9 kg 102.9 kg Intake: IV 300 Sodium Chloride 0.9% 1, 300 000 ml @ 75 mls/hr IV . [id number] [facility] Rx#:[id number] Intake, IV Titration 2376.737 0853.821 1046.655 Amount Cisatracurium 200 mg In 74.757 Sodium Chloride 0.9% 180 ml @ 1 MCG/KG/MIN 5.95 mls/hr IV .Q24H [facility] Rx#: [id number] Piperacillin-Tazobactam 3 50 62.5 50 .375 gm In Dextrose/Water 1 50ml.bag @ 12.5 mls/hr IVPB Q8HR [facility] Rx#: [id number] Propofol 1,000 mg In 100 292.534 549.321 246.655 ml @ Titrate IV .Q0M [facility] Rx#:[id number] Sodium Chloride 0.9% 1, 600 900 750 000 ml @ 75 mls/hr IV . [id number] [facility] Rx#:[id number] Tube Feeding 385 420 505 Other 60 140 Output: Urine 470 1045 870 Other: Voiding Method Indwelling Catheter Indwelling Catheter Indwelling Catheter - Exam Physical Examination: PHYSICAL EXAMINATION: Patient is resting comfortably in bed. VITAL SIGNS: Blood pressure is [105/63]. Heart rate is [89]. Respiration is [26] . Temperature is [98.7]. HEENT: Head is atraumatic, neck is supple, there were no carotid bruits. CHEST: Lungs are clear to auscultation and percussion. CARDIAC: S1, S2 normal rate and rhythm. There is no murmur. ABDOMEN: Soft and nontender. Bowel sounds are present. EXTREMITIES: There is no pedal edema. Peripheral pulses are present. Neurological examination: Patient's neurological examination is unchanged from yesterday. He remains on Diprivan and highly sedated. He responds minimally to painful stimuli. His neurological status is unchanged from yesterday. - Labs CBC & Chem 7: 06/03/17 03:51 06/03/17 03:51 Labs: Abnormal Lab Results - Last 24 Hours (Table) 06/02/17 06/03/17 06/03/17 Range/Units 20:10 02:31 03:51 WBC 13.0 H (3.8-10.6) k/uL RBC 4.28 L (4.30-5.90) m/uL Neutrophils # 9.2 H (1.3-7.7) k/uL ABG pH (7.35-7.45) ABG pO2 (83-108) mmHg ABG HCO3 (21-25) mmol/L ABG Total CO2 (19-24) mmol/L ABG O2 Saturation (94-97) % Glucose (74-99) mg/dL POC Glucose (mg/dL) 129 H 129 H (75-99) mg/dL Calcium (8.4-10.2) mg/dL Phosphorus (2.5-4.5) mg/dL 06/03/17 06/03/17 06/03/17 Range/Units 03:51 04:03 08:25 WBC (3.8-10.6) k/uL RBC (4.30-5.90) m/uL Neutrophils # (1.3-7.7) k/uL ABG pH 7.46 H (7.35-7.45) ABG pO2 61 L (83-108) mmHg ABG HCO3 27 H 26 H (21-25) mmol/L ABG Total CO2 28 H 27 H (19-24) mmol/L ABG O2 Saturation 92.0 L 97.7 H (94-97) % Glucose 100 H (74-99) mg/dL POC Glucose (mg/dL) (75-99) mg/dL Calcium 7.8 L (8.4-10.2) mg/dL Phosphorus 1.7 L (2.5-4.5) mg/dL 06/03/17 Range/Units 11:03 WBC (3.8-10.6) k/uL RBC (4.30-5.90) m/uL Neutrophils # (1.3-7.7) k/uL ABG pH (7.35-7.45) ABG pO2 (83-108) mmHg ABG HCO3 (21-25) mmol/L ABG Total CO2 (19-24) mmol/L ABG O2 Saturation (94-97) % Glucose (74-99) mg/dL POC Glucose (mg/dL) 118 H (75-99) mg/dL Calcium (8.4-10.2) mg/dL Phosphorus (2.5-4.5) mg/dL Microbiology - Last 24 Hours (Table) 06/01/17 07:55 Gram Stain - Final Sputum Sputum Culture - Final Strep pyogenes (grp a) Assessment and Plan (1) Anoxic encephalopathy Status: Acute Code(s): G93.1 - ANOXIC BRAIN DAMAGE, NOT ELSEWHERE CLASSIFIED (2) Cardiopulmonary arrest with successful resuscitation Status: Acute Code(s): I46.9 - CARDIAC ARREST, CAUSE UNSPECIFIED (3) STEMI (ST elevation myocardial infarction) Status: Acute Code(s): I21.3 - ST ELEVATION (STEMI) MYOCARDIAL INFARCTION OF UNSP SITE (4) Stented coronary artery Status: Acute Code(s): Z95.5 - PRESENCE OF CORONARY ANGIOPLASTY IMPLANT AND GRAFT Plan: This patient is a 41-year-old right-handed white male who was admitted to hospital after suffering a witnessed full cardiac arrest. 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 He was working at the [facility] [employer] which is very close to the hospital. Apparently he was working on the side and suddenly collapsed. Colleagues she is very much aware of his very guarded condition at this time. She is aware of her husbands very guarded condition at this time. We will continue close neurological follow-up with the patient in the ICU setting. She is aware of her husbands very guarded condition. We are recommending found him and found him to be in full cardiac arrest. He was resuscitated immediately. His downtime is estimated to be at least 5-10 minutes. EMS arrived and found him collapsed and placed him on a gurney. He was subsequent he brought into the emergency room for further evaluation. Cardiology did take the patient to the catheterization lab. He was found to have complete occlusion of the LAD. This required a stent placement. The patient was then transferred to the intensive care unit. He remains lethargic and obtunded most of the day. This was also verified by the ICU nursing staff. We did review of the results of his CAT scan and EEG with the patient's at bedside. All of her questions were answered. She is aware of his very guarded condition. We are recommending repeat EEG is a follow-up study to be done tomorrow for follow-up. His overall neurological status has shown very little change from yesterday. We will continue to follow the patient closely in the ICU. Pulmonary medicine is considering a trach and PEG for this patient if he shows no significant improvement in his overall status in the next 24-48 hours. His overall prognosis at this time remains very guarded. We will continue close follow-up of this patient in the intensive care unit.
[2017-06-04] MEDS: IPRATROPIUM-ALBUTEROL 3 ML NEB INHALATION SCH ×6 (03:09→23:15)
[2017-06-04] MEDS: SODIUM CHLORIDE 0.9% 1,000 ML IV SCH ×3 (04:14→11:12)
[2017-06-04 04:25] LABS: ABG Base Excess 4.1 mmol/L; ABG HCO3 28 mmol/L (21-25); ABG PCO2 38 mmHg (35-45); ABG PH 7.47 (7.35-7.45); ABG PO2 71 mmHg (83-108); ABG TCO2 29 mmol/L (19-24)
[2017-06-04] MEDS: LORazepam 2 MG/ML SYRINGE IV PRN ×2 (04:57→21:09)
[2017-06-04] MEDS: HYDROmorphone 1 MG/ML 1 ML SYRINGE IVP PRN ×4 (05:38→23:43)
[2017-06-04 05:39] LABS: Basophils # (A) 0.1 k/uL (0-0.2); Basophils % (A) 1 %; CH 32.6; CHCM 33.9; Eosinophils # (A) 0.4 k/uL (0-0.7); Eosinophils % (A) 4 %; HCT 38.4 % (39.0-53.0); HDW 3.03; HGB 12.6 gm/dL (13.0-17.5); Luc # (Auto) 0.32; Luc % (Auto) 3; Lymphocytes # (A) 2.4 k/uL (1.0-4.8); Lymphocytes % (A) 24 %; MCH 31.8 pg (25.0-35.0); MCHC 32.9 g/dL (31.0-37.0); MCV 96.8 fL (80.0-100.0); Mean Platelet Volume 7.6; Monocytes # (A) 0.5 k/uL (0-1.0); Monocytes % (A) 5 %; Neutrophils # (A) 6.5 k/uL (1.3-7.7); Neutrophils % (A) 63 %; RBC 3.97 m/uL (4.30-5.90); RDW 14.9 % (11.5-15.5); WBC 10.2 k/uL (3.8-10.6); WBC (Perox) 10.62
[2017-06-04 05:42] LABS: Glucose,Whole Blood 118 mg/dL (75-99)
[2017-06-04] MEDS: INSULIN LISPRO (humaLOG) 300 UNIT/3 ML VIAL SQ SCH ×4 (05:46→23:38)
[2017-06-04 05:50] LABS: ALT 53 U/L (21-72); AST 32 U/L (17-59); Alkaline Phosphatase 72 U/L (38-126); Anion Gap 5 mmol/L; Blood Urea Nitrogen 18 mg/dL (9-20); Calcium 8.2 mg/dL (8.4-10.2); Carbon Dioxide 27 mmol/L (22-30); Chloride 105 mmol/L (98-107); Glucose 106 mg/dL (74-99); Non-African American GFR(MDRD) >60 (>60 ml/min/1.73 sqM); Phosphorous 2.9 mg/dL (2.5-4.5); Potassium 4.2 mmol/L (3.5-5.1); Sodium 137 mmol/L (137-145); Total Bilirubin 0.8 mg/dL (0.2-1.3); Total Protein 5.4 g/dL (6.3-8.2)
--- NOTE | 2017-06-04 07:46 | XR ---
EXAMINATION TYPE: XR chest 1V DATE OF EXAM: 06/04/2017 COMPARISON: June 03, 2017 HISTORY: SOB, Follow Up FINDINGS: Indwelling tubes and catheters are unchanged. Increasing basilar infiltrates and effusions. Stable appearance of the cardio-mediastinal structures at this time. Pleural effusion unchanged. IMPRESSION: 1. Increasing basilar infiltrates and effusions. Clinical correlation and follow up until resolution is recommended.
[2017-06-04] MEDS: PIPERACILLIN-TAZOBACTAM 3.375 GM in DEXTROSE/WATER 1 50ML.BAG IVPB SCH ×3 (08:37→23:39)
[2017-06-04] MEDS: HEPARIN SODIUM,PORCINE 5,000 UNIT/ML 1 ML VIAL SQ SCH ×3 (08:37→23:37)
[2017-06-04] MEDS: ASPIRIN 325 MG TAB PO SCH (08:38)
[2017-06-04] MEDS: CHLORHEXIDINE GLUCONATE 15 ML CUP MUCOUS MEM SCH ×2 (08:38→20:32)
[2017-06-04] MEDS: PANTOPRAZOLE 40 MG/10 ML VIAL IVP SCH (08:47)
[2017-06-04] MEDS: METOPROLOL TARTRATE 12.5 MG TAB PO SCH ×2 (08:47→20:32)
[2017-06-04] MEDS: PRASUGREL 10 MG TAB PO SCH (08:47)
[2017-06-04] MEDS ORDERED: CISATRACURIUM 2 MG/ML 5 ML VIAL IV ONE ×2 (09:58→10:12)
--- NOTE | 2017-06-04 10:12 | P.PN ---
Subjective This is a 41-year-old male who has no major medical history. He apparently had a cardiopulmonary arrest while worsening over the hospital. The patient apparently had ventricular fibrillation was defibrillated. He was resuscitated taken to the medical lab director. Catheterization revealed a totally occluded LAD and he had a stent placed. He is currently here on the ventilator. We tried weaning him this morning. We stopped his propofol. He became very agitated. The patient is currently still on the ventilator. We had to sedate him further with Precedex or dexmedetomidine and also give him a paralytic agent Nimbex. Currently the patient's on the ventilator. He's on the assist control mode at 20, [place]am for 50 FiO2 up to 100% PEEP increased to 10. We'll titrate the FiO2 down. Blood gases showed a pO2 of 116 a pCO2 35 and a pH 7.46. This is consistent with hyperoxemia and a mild respiratory alkalosis. The patient's on Precedex currently appointment for mics. The propofol will be turned off. He is getting 9 IV at 75 mL an hour. Amiodarone is been turned off. We'll get some tube feeds started. The patient is seen again today 06/02/2017 in follow-up in the intensive care unit. He remains intubated and on the mechanical ventilator. Current settings are assist control of 20, tidal volume 450, FiO2 70% and a PEEP of 10. Morning blood gases reveal a P O2 of 80, pCO2 of 62 and a pH of 7.25. He remains on Nimbex at 2 mcg/kg/m, Precedex at 0.7 mcg/kg/m, propofol at 50 mcg/kg/m. He has a 0.9 normal saline at 75 mL per hour. He is being nourished with 2 Alejandro HN at 35 mL per hour with a goal of 45 mL per hour. His computed tomography scan of the head was negative for acute abnormalities. EEG did reveal slowing. He was seen by neurology. His prognosis is quite guarded at this point with concerns regarding suspected anoxic brain injury. His pF ratio is 114 and there is also concern of possible development of ARDS with concerns for possible aspiration. His chest x-ray reveals persistent left-sided infiltrate. Sputum culture is pending. Remains on bronchodilators every 4 hours. There is some mild central venous congestion as well. His echocardiogram did reveal moderately impaired left ventricular systolic function with an ejection fraction between 35 and 40%. The patient is seen again today 06/03/2017 in follow-up in the intensive care unit. He remains intubated and on the mechanical ventilator. His current settings are assist control of 26, tidal volume 450, FiO2 of 50% and a PEEP of 13. Initial blood gases revealed a PaO2 of 61, pCO2 of 40 and a pH of 7.44. His FiO2 was increased to 60% and a follow-up blood gas on the 60% and a pO2 had improved to 93, pCO2 of 37 and a pH of 7.46. He remains on 0.9 normal saline at 75 MLS per hour, propofol at 75 mcg/kg/m. He is being nourished with 2 Alejandro HN tube feedings at 35 mL per hour which is his goal. His chest x-ray continues to show a right lower lobe consolidation and some atelectasis in the left lung base. Sputum so far showing strep pyogenes. He does have a temp of 99.5 axillary, no tachycardia and the white count 13. The patient is seen again today 06/04/2017 in follow-up in the intensive care unit. He remains intubated and on the mechanical ventilator. Current vent settings are assist-control 26, tidal volume 450 FiO2 80% previous to that he was on 50% FiO2 with blood gases revealing a pO2 of 71, pCO2 of 38 and a PEEP H of 7.47. He had a episode of desaturations he had increased secretions and he also had emesis around the NG tube. It took some time to get his saturations back up he was on 100% for a while. He remains on 0.9 normal saline at 75 MLS per hour. Propofol at 75 mcg/kg/m. His tube feeds are Vital HP at 45 MLS per hour which is his goal. Tube feeds are currently on hold due to the emesis. A flat plate of the abdomen was performed. His chest x-ray continues to show increasing basilar infiltrates and effusions. Sputum culture shows strep pyogenes. He remains on Zosyn for now. He does have a temp of 100.3. White count 10.2. Objective - Vital Signs Vital signs: Vital Signs Temp 100.3 F H 06/04/17 09:00 Pulse 90 06/04/17 09:00 Resp 28 H 06/04/17 09:00 BP 97/56 06/04/17 09:00 Pulse Ox 98 06/04/17 09:00 Intake & Output 06/03/17 06/04/17 06/04/17 18:59 06:59 18:59 Intake Total 2031.655 2404.973 360 Output Total 1120 1420 500 Balance 911.655 984.973 -140 Weight 102.9 kg 104.9 kg Intake: Intake, IV Titration 1872.847 3035.973 150 Amount Piperacillin-Tazobactam 3 50 62.5 .375 gm In Dextrose/Water 1 50ml.bag @ 12.5 mls/hr IVPB Q8HR [facility] Rx#: [id number] Propofol 1,000 mg In 100 346.655 512.473 ml @ Titrate IV .Q0M [facility] Rx#:[id number] Sodium Chloride 0.9% 1, 900 975 150 000 ml @ 75 mls/hr IV . [id number] [facility] Rx#:[id number] Tube Feeding 595 765 180 Other 140 90 30 Output: Urine 1120 1420 200 Emesis 300 Other: Voiding Method Indwelling Catheter Indwelling Catheter Indwelling Catheter - Exam Currently sedated. Has an orally placed NG tube and an orally placed endotracheal tube. HEENT examination is grossly unremarkable. Neck supple. Full range of motion. Cardiovascular examination reveals regular rhythm rate. S1-S2 normal. No murmur. Lungs reveal few scattered rhonchi. Crackles in the bilateral bases. Breath sounds are diminished. Abdomen soft bowel sounds are heard. Extremities are intact. No cyanosis clubbing or edema. Skin without rash. Neurologic examination cannot be adequately performed. - Labs CBC & Chem 7: 06/04/17 05:19 06/04/17 05:19 Labs: Abnormal Lab Results - Last 24 Hours (Table) 06/03/17 06/03/17 06/03/17 Range/Units 11:03 18:12 23:25 RBC (4.30-5.90) m/uL Hgb (13.0-17.5) gm/dL Hct (39.0-53.0) % ABG pH (7.35-7.45) ABG pO2 (83-108) mmHg ABG HCO3 (21-25) mmol/L ABG Total CO2 (19-24) mmol/L Glucose (74-99) mg/dL POC Glucose (mg/dL) 118 H 107 H 110 H (75-99) mg/dL Calcium (8.4-10.2) mg/dL Total Protein (6.3-8.2) g/dL Albumin (3.5-5.0) g/dL 06/04/17 06/04/17 06/04/17 Range/Units 04:19 05:19 05:19 RBC 3.97 L (4.30-5.90) m/uL Hgb 12.6 L (13.0-17.5) gm/dL Hct 38.4 L (39.0-53.0) % ABG pH 7.47 H (7.35-7.45) ABG pO2 71 L (83-108) mmHg ABG HCO3 28 H (21-25) mmol/L ABG Total CO2 29 H (19-24) mmol/L Glucose 106 H (74-99) mg/dL POC Glucose (mg/dL) (75-99) mg/dL Calcium 8.2 L (8.4-10.2) mg/dL Total Protein 5.4 L (6.3-8.2) g/dL Albumin 2.8 L (3.5-5.0) g/dL 06/04/17 Range/Units 05:40 RBC (4.30-5.90) m/uL Hgb (13.0-17.5) gm/dL Hct (39.0-53.0) % ABG pH (7.35-7.45) ABG pO2 (83-108) mmHg ABG HCO3 (21-25) mmol/L ABG Total CO2 (19-24) mmol/L Glucose (74-99) mg/dL POC Glucose (mg/dL) 118 H (75-99) mg/dL Calcium (8.4-10.2) mg/dL Total Protein (6.3-8.2) g/dL Albumin (3.5-5.0) g/dL Microbiology - Last 24 Hours (Table) 06/01/17 07:55 Gram Stain - Final Sputum Sputum Culture - Final Strep pyogenes (grp a) Assessment and Plan Plan: Impression: #1 Cardiopulmonary arrest secondary to ST segment elevation myocardial infarction with ventricular fibrillation. Status post stenting to the proximal LAD. #2 Acute hypoxic respiratory failure requiring intubation mechanical ventilation secondary to above and with the development of suspected ARDS and right lower lobe consolidation secondary to suspected aspiration pneumonia. Failure to wean thus far suspect anoxic brain injury. #3 Acute systolic congestive heart failure with estimated ejection fraction 35- 40%. #4 Acute anoxic brain injury based on slowing of the EEG and difficulty weaning. #5 Chronic and ongoing tobacco dependence. #6 Daily alcohol use. Plan: The patient was seen and evaluated by Dr. Crenshaw. His chest x-ray, ABGs and labs were reviewed. We will increase the PEEP back to 13. We'll attempt to continue to wean down the FiO2 we'll maintain O2 saturations greater than 92%. We will give the patient Lasix 40 mg IV push 1 today. We'll decrease his IV fluids. Surgical services were consulted for tracheostomy and PEG tube placement as the patient has had failure to wean thus far the patient is currently on Effient secondary to the recent stent placement. We'll plan to put place a central line and arterial line today. We'll continue with his current medications including Zosyn and await final culture sensitivity. He did discuss the plans with the patient's and family again today. They are agreeable to the plan. Continue to monitor him here closely in the intensive care unit. We will continue to follow. Critical care time 38 minutes. Time with Patient: Greater than 30
[2017-06-04] MEDS ORDERED: FUROSEMIDE 10 MG/ML 4 ML VIAL IV STA (10:27)
--- NOTE | 2017-06-04 10:32 | XR ---
EXAMINATION TYPE: XR KUB portable DATE OF EXAM: 06/04/2017 10:06 AM CLINICAL HISTORY: Constipation and vomiting TECHNIQUE: Single supine KUB image of the abdomen is obtained. COMPARISON: None. FINDINGS: NG tube noted. Contrast within the colon seen. Motion artifact noted. As limits exam. Bowel gas pattern is nonspecific. Osseous structures intact. IMPRESSION: 1. Nonspecific abdomen.
--- NOTE | 2017-06-04 10:51 | XR ---
EXAMINATION TYPE: XR chest 1V portable DATE OF EXAM: 06/04/2017 COMPARISON: 06/04/2017 HISTORY: Central line placement TECHNIQUE: Single frontal view of the chest is obtained. FINDINGS: Previously seen bibasilar airspace disease and layering pleural effusions have greatly imp roved in the interim with probable bibasal atelectasis remaining. Left internal jugular central venous catheter has been inserted in the interim with no evidence of le ft-sided pneumothorax. Distal tip terminates in the superior vena cava/right atrial junction, appropr iately placed. Redemonstration of an endotracheal tube and enteric tube that are both appropriately p laced. IMPRESSION: 1. Interval insertion of a left-sided internal jugular central venous catheter, peripherally placed w ith no pneumothorax. 2. Significant improvement of the previously seen layering pleural effusions and bibasilar airspace d isease with residual subsegmental bibasilar atelectasis.
[2017-06-04] MEDS: CISATRACURIUM 200 MG in SODIUM CHLORIDE 0.9% 180 ML IV SCH (11:11)
[2017-06-04 11:20] LABS: Glucose,Whole Blood 109 mg/dL (75-99)
--- NOTE | 2017-06-04 15:19 | P.PN ---
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 EMS was notified and he was found to be in ventricular fibrillation without a pulse. He had defibrillation 2 with return of spontaneous circulation. It is unclear exactly how long his down time was but it appears to be less than 10-15 minutes. Initial EKG showed ST segment elevation. He was brought to the ER and a code STEMI was called. He was taken to the labor utilization superintendent and had a drug- eluting stent placed to the LAD is a had 100% occlusion. He was admitted to ICU and was intubated. He was found to have an elevated total cholesterol level , elevated liver enzymes, elevated creatinine. Critical care with consult for ventilator management. He was also noted to have a history of alcohol use. On the morning of 06/01 his sedation was held and he was awake and followed commands for me. He became increasingly agitated and they had to be placed on sedation. His oxygen requirement elevated. He was also started on a Nimbex drip. His blood pressure remained controlled. He was seen by neurology and had an EEG done which showed diffuse slowing, head CT was negative, neurology will continue to follow. Unable to wean due to developing PNA and ARDS. Patient seen and examined at bedside, he is currently sedated, case discussed with nursing. No new events overnight, still agitated throughout the day yesterday necessitating the use of propofol. Objective - Vital Signs Vital signs: Vital Signs Temp 100.3 F H 06/04/17 09:00 Pulse 90 06/04/17 09:00 Resp 28 H 06/04/17 09:00 BP 97/56 06/04/17 09:00 Pulse Ox 98 06/04/17 09:00 Intake & Output 06/03/17 06/04/17 06/04/17 18:59 06:59 18:59 Intake Total 2031.655 2404.973 315 Output Total 1120 1420 275 Balance 911.655 984.973 40 Weight 102.9 kg 104.9 kg Intake: Intake, IV Titration 1070.953 4743.973 150 Amount Piperacillin-Tazobactam 3 50 62.5 .375 gm In Dextrose/Water 1 50ml.bag @ 12.5 mls/hr IVPB Q8HR [facility] Rx#: [id number] Propofol 1,000 mg In 100 346.655 512.473 ml @ Titrate IV .Q0M [facility] Rx#:[id number] Sodium Chloride 0.9% 1, 900 975 150 000 ml @ 75 mls/hr IV . [id number] [facility] Rx#:[id number] Tube Feeding 595 765 135 Other 140 90 30 Output: Urine 1120 1420 125 Emesis 150 Other: Voiding Method Indwelling Catheter Indwelling Catheter - Exam General: non toxic, mild distress, appears at stated age, sedated on vent Derm: no rashes, no lesions, no scaling, warm, not diaphoretic Head: atraumatic, normocephalic, symmetric Eyes: EOMI, no lid lag, anicteric sclera, PERRL ENT: Intubated Mouth: no lip lesion, ET tube in place Cardiovascular: S1S2 reg, no murmur, positive posterior tibial pulse bilateral, no edema Lungs: course bs, no rhonchi, no rales , no accessory muscle use, on vent Abdominal: soft, nontender to palpation, no guarding, no appreciable organomegaly Ext: no gross muscle atrophy, no edema, no contractures Neuro: moving independently Psych: on sedation and paralytic - Labs CBC & Chem 7: 06/04/17 05:19 06/04/17 05:19 Labs: Abnormal Lab Results - Last 24 Hours (Table) 06/03/17 06/03/17 06/03/17 Range/Units 11:03 18:12 23:25 RBC (4.30-5.90) m/uL Hgb (13.0-17.5) gm/dL Hct (39.0-53.0) % ABG pH (7.35-7.45) ABG pO2 (83-108) mmHg ABG HCO3 (21-25) mmol/L ABG Total CO2 (19-24) mmol/L Glucose (74-99) mg/dL POC Glucose (mg/dL) 118 H 107 H 110 H (75-99) mg/dL Calcium (8.4-10.2) mg/dL Total Protein (6.3-8.2) g/dL Albumin (3.5-5.0) g/dL 08/25/17 08/25/17 08/25/17 Range/Units 04:19 05:19 05:19 RBC 3.97 L (4.30-5.90) m/uL Hgb 12.6 L (13.0-17.5) gm/dL Hct 38.4 L (39.0-53.0) % ABG pH 7.47 H (7.35-7.45) ABG pO2 71 L (83-108) mmHg ABG HCO3 28 H (21-25) mmol/L ABG Total CO2 29 H (19-24) mmol/L Glucose 106 H (74-99) mg/dL POC Glucose (mg/dL) (75-99) mg/dL Calcium 8.2 L (8.4-10.2) mg/dL Total Protein 5.4 L (6.3-8.2) g/dL Albumin 2.8 L (3.5-5.0) g/dL 06/04/17 Range/Units 05:40 RBC (4.30-5.90) m/uL Hgb (13.0-17.5) gm/dL Hct (39.0-53.0) % ABG pH (7.35-7.45) ABG pO2 (83-108) mmHg ABG HCO3 (21-25) mmol/L ABG Total CO2 (19-24) mmol/L Glucose (74-99) mg/dL POC Glucose (mg/dL) 118 H (75-99) mg/dL Calcium (8.4-10.2) mg/dL Total Protein (6.3-8.2) g/dL Albumin (3.5-5.0) g/dL Microbiology - Last 24 Hours (Table) 06/01/17 07:55 Gram Stain - Final Sputum Sputum Culture - Final Strep pyogenes (grp a) Assessment and Plan (1) STEMI (ST elevation myocardial infarction) Narrative/Plan: ASA, effient, lipitor, cardio recs, echo with cardiomyopathy prn nitro Status: Acute (2) Acute respiratory failure Narrative/Plan: with probable ARDS, Acute hypoxic respiratory fialure, Currently on vent, management per critical care, sedation management as per critical care Status: Acute (3) Dyslipidemia Status: Acute (4) Alcohol abuse Status: Acute (5) Nicotine addiction Status: Acute (6) Ischemic cardiomyopathy Narrative/Plan: EF 35-40%, due to STEMI and cardiac arrest, ASA, lipitor, lopressor. cardiology recommendations appreciated Status: Acute (7) Pneumonia Narrative/Plan: strep pyogenous, Zosyn, follow chest x-ray total clear, bronchodilators, critical care recommendations appreciated Status: Acute (8) ARDS (adult respiratory distress syndrome) Narrative/Plan: Management as per critical care, had consult surgery for trach and PEG but this is being delayed due to Effient use. Status: Acute (9) Anoxic encephalopathy Narrative/Plan: patient was following commands for me on first day after cardiac arrest, await neurologic assessment once sedation can be weaned, neurology recommendations appreciated, EEG diffuse slowing Status: Acute Plan: Resolved: Transamitis MOHSEN cardio pulmonary arrest Elevated CK Ventricular fib Surrogate decision-maker Nasrin [phone] DVT prophylaxis: heparin sc Discused with: nursing, Anticipated discharge: 48- [address]: home A total of 45 minutes was spent on the care of this complex patient more than 50 % of the time was spent in counseling and care coordination.
[2017-06-04] MEDS: THIAMINE 100 MG TAB PO SCH ×2 (15:20→15:23)
[2017-06-04] MEDS: MULTIVITAMINS, THERA 1 EACH TAB PO SCH (15:22)
[2017-06-04 17:10] LABS: Glucose,Whole Blood 96 mg/dL (75-99)
[2017-06-04] MEDS: ATORVASTATIN 80 MG TAB OG-TUBE SCH (20:31)
[2017-06-04 23:39] LABS: Glucose,Whole Blood 96 mg/dL (75-99)
[2017-06-05] MEDS: PROPOFOL 1,000 MG/100 ML VIAL IV SCH ×10 (01:10→21:15)
[2017-06-05] MEDS: IPRATROPIUM-ALBUTEROL 3 ML NEB INHALATION SCH ×6 (03:04→23:05)
[2017-06-05] MEDS: LORazepam 2 MG/ML SYRINGE IV PRN ×2 (03:15→08:44)
[2017-06-05 05:01] LABS: Basophils % (A) 1 %; CH 31.9; CHCM 34.7; Eosinophils # (A) 0.5 k/uL (0-0.7); Eosinophils % (A) 6 %; HCT 34.6 % (39.0-53.0); HDW 3.13; HGB 12.1 gm/dL (13.0-17.5); Luc # (Auto) 0.28; Luc % (Auto) 3; Lymphocytes # (A) 2.5 k/uL (1.0-4.8); Lymphocytes % (A) 27 %; MCH 32.5 pg (25.0-35.0); MCHC 35.1 g/dL (31.0-37.0); MCV 92.6 fL (80.0-100.0); Monocytes # (A) 0.5 k/uL (0-1.0); Monocytes % (A) 5 %; Neutrophils # (A) 5.3 k/uL (1.3-7.7); Neutrophils % (A) 59 %; RBC 3.73 m/uL (4.30-5.90); WBC 9.1 k/uL (3.8-10.6)
[2017-06-05 05:02] LABS: Glucose,Whole Blood 111 mg/dL (75-99)
[2017-06-05] MEDS: INSULIN LISPRO (humaLOG) 300 UNIT/3 ML VIAL SQ SCH ×4 (05:04→23:18)
[2017-06-05 05:10] LABS: ABG Base Excess 5.4 mmol/L; ABG HCO3 29 mmol/L (21-25); ABG PCO2 41 mmHg (35-45); ABG PH 7.47 (7.35-7.45); ABG PO2 77 mmHg (83-108); ABG TCO2 30 mmol/L (19-24)
[2017-06-05] MEDS: HYDROmorphone 1 MG/ML 1 ML SYRINGE IVP PRN ×9 (05:53→21:24)
[2017-06-05 05:56] LABS: ALT 41 U/L (21-72); AST 25 U/L (17-59); Alkaline Phosphatase 75 U/L (38-126); Anion Gap 7 mmol/L; Blood Urea Nitrogen 20 mg/dL (9-20); Calcium 8.3 mg/dL (8.4-10.2); Carbon Dioxide 28 mmol/L (22-30); Chloride 103 mmol/L (98-107); Glucose 103 mg/dL (74-99); Magnesium 1.9 mg/dL (1.6-2.3); Non-African American GFR(MDRD) >60 (>60 ml/min/1.73 sqM); Phosphorous 3.9 mg/dL (2.5-4.5); Potassium 3.8 mmol/L (3.5-5.1); Sodium 138 mmol/L (137-145); Total Bilirubin 1.1 mg/dL (0.2-1.3); Total Protein 5.3 g/dL (6.3-8.2)
[2017-06-05] MEDS ORDERED: Potassium Replacement Protocol 1 EACH MISC MISCELLANE PRN (06:09)
[2017-06-05] MEDS ORDERED: POTASSIUM CHLORIDE ORAL LIQUID 40 MEQ/30 ML CUP NG-TUBE SCH (07:00)
--- NOTE | 2017-06-05 07:15 | XR ---
EXAMINATION TYPE: XR chest 1V DATE OF EXAM: 06/05/2017 COMPARISON: NONE HISTORY: Shortness of breath TECHNIQUE: Single frontal view of the chest is obtained. FINDINGS: ET tube approximately 6 cm above magalis. NG tube extends into the abdomen. There is left lower lobe consolidation and small bilateral pleural effusion. No pneumothorax. IMPRESSION: 1. Left basilar infiltrate and tiny bilateral effusions.
[2017-06-05] MEDS: PIPERACILLIN-TAZOBACTAM 3.375 GM in DEXTROSE/WATER 1 50ML.BAG IVPB SCH ×3 (07:52→23:23)
[2017-06-05] MEDS: CHLORHEXIDINE GLUCONATE 15 ML CUP MUCOUS MEM SCH ×2 (07:54→20:47)
[2017-06-05] MEDS: HEPARIN SODIUM,PORCINE 5,000 UNIT/ML 1 ML VIAL SQ SCH ×3 (07:54→23:18)
[2017-06-05] MEDS: PANTOPRAZOLE 40 MG/10 ML VIAL IVP SCH (07:54)
[2017-06-05] MEDS: ASPIRIN 325 MG TAB PO SCH (07:55)
[2017-06-05] MEDS: METOPROLOL TARTRATE 12.5 MG TAB PO SCH ×2 (07:55→20:47)
[2017-06-05] MEDS: PRASUGREL 10 MG TAB PO SCH (07:55)
[2017-06-05] MEDS: LISINOPRIL 10 MG TAB PO SCH (09:18)
--- NOTE | 2017-06-05 09:28 | P.PN ---
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 When EMS arrived at the job site the patient was in ventricular fibrillation without a pulse. He was defibrillated 2 and was transported to the emergency room where he was intubated. 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 He had a drug-eluting stent placed in the LAD which had 100 % occlusion. He was then stabilized and then transferred to the intensive care unit for further management. The patient remains intubated on the ventilator. He remains on a Diprivan drip. Apparently when they have attempted to wean him he becomes very agitated and combative. He did undergo a routine EEG on admission which was negative for any acute changes. He underwent a routine EEG initially which did reveal diffuse slowing. We are recommending a follow-up EEG to be done tomorrow morning for comparison and long-term prognosis. The patient does respond to painful stimuli only minimally. Cardiology continues to follow him closely as well. He is status post recent anterior wall NM. He is showing very slow recovery in terms of his neurological status. For this reason we have recommended a follow-up EEG to be done today for comparison to his previous study. His has been updated on his overall poor neurological status at this time. She is aware that his prognosis remains very guarded. He will need daily assessment of his overall neurological status to see if he is making improvement. Patient does seem to be slightly improved in terms of his responsiveness. As noted his EEG did show slight worsening as compared to his initial EEG. This was discussed at length with the patient's at bedside. Clinically however he is showing improvement in his overall mental status. We will need to wait to see if this patient can be weaned off of the ventilator. He does seem to be more alert and may benefit from extubation. We will await further recommendations from pulmonary medicine. We will continue close neurological follow-up with this patient in the intensive care unit. His overall prognosis at this time remains very guarded. Objective - Vital Signs Vital signs: Vital Signs Temp 98.2 F 06/04/17 12:00 Pulse 83 06/04/17 19:25 Resp 26 H 06/04/17 19:00 BP 101/62 06/04/17 19:00 Pulse Ox 100 06/04/17 19:00 Intake & Output 06/04/17 06/04/17 06/05/17 06:59 18:59 06:59 Intake Total 2404.973 816.706 130 Output Total 1420 2850 110 Balance 984.973 -2033.294 20 Weight 104.9 kg 104.9 kg Intake: Intake, IV Titration 1549.973 546.706 40 Amount Piperacillin-Tazobactam 3 62.5 .375 gm In Dextrose/Water 1 50ml.bag @ 12.5 mls/hr IVPB Q8HR JENELLE Rx#: [id number] Propofol 1,000 mg In 100 512.473 161.706 ml @ Titrate IV .Q0M JENELLE Rx#:[id number] Sodium Chloride 0.9% 1, 975 225 000 ml @ 20 mls/hr IV . Q24H JENELLE Rx#:[id number] Sodium Chloride 0.9% 1, 160 40 000 ml @ 20 mls/hr IV . Q24H JENELLE Rx#:[id number] Tube Feeding 765 240 60 Other 90 30 30 Output: Urine 1420 2550 110 Emesis 300 Other: Voiding Method Indwelling Catheter Indwelling Catheter ABP, PAP, CO, CI - Last Documented Arterial Blood Pressure 123/55 - Exam Physical Examination: PHYSICAL EXAMINATION: Patient is resting comfortably in bed. VITAL SIGNS: Blood pressure is [105/63]. Heart rate is [89]. Respiration is [26] . Temperature is [98.7]. HEENT: Head is atraumatic, neck is supple, there were no carotid bruits. CHEST: Lungs are clear to auscultation and percussion. CARDIAC: S1, S2 normal rate and rhythm. There is no murmur. ABDOMEN: Soft and nontender. Bowel sounds are present. EXTREMITIES: There is no pedal edema. Peripheral pulses are present. Neurological examination: Patient's neurological examination is unchanged from yesterday. He remains on Diprivan and highly sedated. He responds minimally to painful stimuli. His neurological status is unchanged from yesterday. - Labs CBC & Chem 7: 06/05/17 04:50 06/05/17 04:50 Labs: Abnormal Lab Results - Last 24 Hours (Table) 06/03/17 06/04/17 06/04/17 Range/Units 23:25 04:19 05:19 RBC (4.30-5.90) m/uL Hgb (13.0-17.5) gm/dL Hct (39.0-53.0) % ABG pH 7.47 H (7.35-7.45) ABG pO2 71 L (83-108) mmHg ABG HCO3 28 H (21-25) mmol/L ABG Total CO2 29 H (19-24) mmol/L Glucose 106 H (74-99) mg/dL POC Glucose (mg/dL) 110 H (75-99) mg/dL Calcium 8.2 L (8.4-10.2) mg/dL Total Protein 5.4 L (6.3-8.2) g/dL Albumin 2.8 L (3.5-5.0) g/dL 06/04/17 06/04/17 06/04/17 Range/Units 05:19 05:40 11:18 RBC 3.97 L (4.30-5.90) m/uL Hgb 12.6 L (13.0-17.5) gm/dL Hct 38.4 L (39.0-53.0) % ABG pH (7.35-7.45) ABG pO2 (83-108) mmHg ABG HCO3 (21-25) mmol/L ABG Total CO2 (19-24) mmol/L Glucose (74-99) mg/dL POC Glucose (mg/dL) 118 H 109 H (75-99) mg/dL Calcium (8.4-10.2) mg/dL Total Protein (6.3-8.2) g/dL Albumin (3.5-5.0) g/dL Assessment and Plan (1) Anoxic encephalopathy Status: Acute Code(s): G93.1 - ANOXIC BRAIN DAMAGE, NOT ELSEWHERE CLASSIFIED (2) Cardiopulmonary arrest with successful resuscitation Status: Acute Code(s): I46.9 - CARDIAC ARREST, CAUSE UNSPECIFIED (3) STEMI (ST elevation myocardial infarction) Status: Acute Code(s): I21.3 - ST ELEVATION (STEMI) MYOCARDIAL INFARCTION OF UNSP SITE (4) Stented coronary artery Status: Acute Code(s): Z95.5 - PRESENCE OF CORONARY ANGIOPLASTY IMPLANT AND GRAFT Plan: This patient is a 41-year-old right-handed white male who was admitted to hospital after suffering a witnessed full cardiac arrest. 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 He was working at the [facility] which is very close to the hospital. Apparently he was working on the side and suddenly collapsed. Colleagues she is very much aware of his very guarded condition at this time. She is aware of her husbands very guarded condition at this time. We will continue close neurological follow-up with the patient in the ICU setting. She is aware of her husbands very guarded condition. We are recommending found him and found him to be in full cardiac arrest. He was resuscitated immediately. His downtime is estimated to be at least 5-10 minutes. EMS arrived and found him collapsed and placed him on a gurney. He was subsequent he brought into the emergency room for further evaluation. Cardiology did take the patient to the catheterization lab. He was found to have complete occlusion of the LAD. This required a stent placement. The patient was then transferred to the intensive care unit. He remains lethargic and obtunded most of the day. This was also verified by the ICU nursing staff. We did review of the results of his CAT scan and EEG with the patient's at bedside. All of her questions were answered. She is aware of his very guarded condition. We are recommending repeat EEG is a follow-up study to be done tomorrow for follow-up. His overall neurological status has shown very little change from yesterday. We will continue to follow the patient closely in the ICU. Pulmonary medicine is considering a trach and PEG for this patient if he shows no significant improvement in his overall status in the next 24-48 hours. His neurological examination does show improvement today as compared to yesterday. We will continue close neurological follow-up of this patient in the intensive care unit. Hopefully he will be able to be extubated off of the ventilator very shortly. We will continue close neurological follow-up of this patient in the intensive care unit. His overall prognosis as noted remains guarded. We will continue close follow-up of this patient in the intensive care unit.
--- NOTE | 2017-06-05 09:32 | PCN ---
CENTRAL VENOUS LINE INSERTION Indication: Hemodynamic monitoring/Intravenous access. PREOPERATIVE DIAGNOSIS: Administration of fluids and pressors. POSTOPERATIVE DIAGNOSIS: Administration of fluids and pressors. A time-out was completed verifying correct patient, procedure, site, positioning , and implant(s) or special equipment if applicable. The patient was placed in a dependent position appropriate for central line placement based on the vein to be cannulated. The patients left neck was prepped and draped in sterile fashion. 1% Lidocaine was used to anesthetize the surrounding skin area. A triple lumen 9F Cordis catheter was introduced into the internal jugular vein using Seldinger technique. The catheter was threaded smoothly over the guide wire and appropriate blood return was obtained. Each lumen of the catheter was evacuated of air and flushed with sterile saline. The catheter was then sutured in place to the skin and a sterile dressing applied. Perfusion to the extremity distal to the point of catheter insertion was checked and found to be adequate. There were no immediate complications. The catheter was sutured in place. There was good blood return from all three ports. Sterile dressing was applied by the nurse. A chest x-ray was ordered to check placement and rule out pneumothorax. The patient tolerated the procedure well and there were no complications. AURA
--- NOTE | 2017-06-05 09:34 | PCN ---
ARTERIAL LINE PLACEMENT Indication: Hemodynamic monitoring. A time-out was completed verifying correct patient, procedure, site, positioning , and implant(s) or special equipment if applicable. Allens test was performed to ensure adequate perfusion. The patients right wrist was prepped and draped in sterile fashion. 1% Lidocaine was used to anesthetize the area. An 18G Arrow arterial line was introduced into the radial artery. The catheter was threaded over the guide wire and the needle was removed with appropriate pulsatile blood return. Blood loss was minimal. The catheter was then sutured in place to the skin and a sterile dressing applied. Perfusion to the extremity distal to the point of catheter insertion was checked and found to be adequate. The patient tolerated the procedure well and there were no complications. AURA
[2017-06-05] MEDS ORDERED: FUROSEMIDE 10 MG/ML 4 ML VIAL IV STA (09:57)
[2017-06-05] MEDS: CISATRACURIUM 200 MG in SODIUM CHLORIDE 0.9% 180 ML IV SCH (10:26)
--- NOTE | 2017-06-05 10:28 | P.PN ---
Subjective This is a 41-year-old male who has no major medical history. He apparently had a cardiopulmonary arrest while worsening over the hospital. The patient apparently had ventricular fibrillation was defibrillated. 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 Catheterization revealed a totally occluded LAD and he had a stent placed. He is currently here on the ventilator. We tried weaning him this morning. We stopped his propofol. He became very agitated. The patient is currently still on the ventilator. We had to sedate him further with Precedex or dexmedetomidine and also give him a paralytic agent Nimbex. Currently the patient's on the ventilator. He's on the assist control mode at 20, Byam for 50 FiO2 up to 100% PEEP increased to 10. We'll titrate the FiO2 down. Blood gases showed a pO2 of 116 a pCO2 35 and a pH 7.46. This is consistent with hyperoxemia and a mild respiratory alkalosis. The patient's on Precedex currently appointment for mics. The propofol will be turned off. He is getting 9 IV at 75 mL an hour. Amiodarone is been turned off. We'll get some tube feeds started. The patient is seen again today 06/02/2017 in follow-up in the intensive care unit. He remains intubated and on the mechanical ventilator. Current settings are assist control of 20, tidal volume 450, FiO2 70% and a PEEP of 10. Morning blood gases reveal a P O2 of 80, pCO2 of 62 and a pH of 7.25. He remains on Nimbex at 2 mcg/kg/m, Precedex at 0.7 mcg/kg/m, propofol at 50 mcg/kg/m. He has a 0.9 normal saline at 75 mL per hour. He is being nourished with 2 Alejandro HN at 35 mL per hour with a goal of 45 mL per hour. His computed tomography scan of the head was negative for acute abnormalities. EEG did reveal slowing. He was seen by neurology. His prognosis is quite guarded at this point with concerns regarding suspected anoxic brain injury. His pF ratio is 114 and there is also concern of possible development of ARDS with concerns for possible aspiration. His chest x-ray reveals persistent left-sided infiltrate. Sputum culture is pending. Remains on bronchodilators every 4 hours. There is some mild central venous congestion as well. His echocardiogram did reveal moderately impaired left ventricular systolic function with an ejection fraction between 35 and 40%. The patient is seen again today 06/03/2017 in follow-up in the intensive care unit. He remains intubated and on the mechanical ventilator. His current settings are assist control of 26, tidal volume 450, FiO2 of 50% and a PEEP of 13. Initial blood gases revealed a PaO2 of 61, pCO2 of 40 and a pH of 7.44. His FiO2 was increased to 60% and a follow-up blood gas on the 60% and a pO2 had improved to 93, pCO2 of 37 and a pH of 7.46. He remains on 0.9 normal saline at 75 MLS per hour, propofol at 75 mcg/kg/m. He is being nourished with 2 Alejandro HN tube feedings at 35 mL per hour which is his goal. His chest x-ray continues to show a right lower lobe consolidation and some atelectasis in the left lung base. Sputum so far showing strep pyogenes. He does have a temp of 99.5 axillary, no tachycardia and the white count 13. The patient is seen again today 06/04/2017 in follow-up in the intensive care unit. He remains intubated and on the mechanical ventilator. Current vent settings are assist-control 26, tidal volume 450 FiO2 80% previous to that he was on 50% FiO2 with blood gases revealing a pO2 of 71, pCO2 of 38 and a PEEP H of 7.47. He had a episode of desaturations he had increased secretions and he also had emesis around the NG tube. It took some time to get his saturations back up he was on 100% for a while. He remains on 0.9 normal saline at 75 MLS per hour. Propofol at 75 mcg/kg/m. His tube feeds are Vital HP at 45 MLS per hour which is his goal. Tube feeds are currently on hold due to the emesis. A flat plate of the abdomen was performed. His chest x-ray continues to show increasing basilar infiltrates and effusions. Sputum culture shows strep pyogenes. He remains on Zosyn for now. He does have a temp of 100.3. White count 10.2. Patient is seen again today 06/05/2017 in follow-up in the intensive care unit. He remains intubated and on the mechanical ventilator. Current vent settings are assist-control rate of 26 on tidal volume 450, FiO2 40% and a PEEP of 10. His blood gas revealed a PaO2 of 77, pCO2 41 and a pH of 7.47. He was given another daily interruption of sedation and the patient continues to have no purposeful movements. He does not follow simple commands. He is not making good eye contact. It does take a while to re sedate the patient and he also has desaturations that also takes a while to recover. He remains on propofol at 75 mcg/kg/m, 0.9 normal saline at 25 mL per hour and he is being nourished with Yaya HP at 45 mL per hour which is goal. His chest x-ray just shows some mild atelectatic changes in the bases. His CVP is running between 15 and 18. No significant leukocytosis. Currently afebrile. Strep pyogenes final sensitivity is still pending. Maintained on Zosyn. Objective - Vital Signs Vital signs: Vital Signs Temp 98.2 F 06/05/17 08:00 Pulse 105 H 06/05/17 08:00 Resp 31 H 06/05/17 08:00 BP 99/65 06/05/17 08:00 Pulse Ox 97 06/05/17 08:00 Intake & Output 06/04/17 06/05/17 06/05/17 18:59 06:59 18:59 Intake Total 890.270 1763.48 325 Output Total 2850 785 205 Balance -2033.294 702.48 120 Weight 104.9 kg 102.5 kg 102.5 kg Intake: IV 262.5 60 Piperacillin-Tazobactam 3 62.5 .375 gm In Dextrose/Water 1 50ml.bag @ 12.5 mls/hr IVPB Q8HR JENELLE Rx#: [id number] Sodium Chloride 0.9% 1, 200 60 000 ml @ 20 mls/hr IV . Q24H JENELLE Rx#:[id number] Intake, IV Titration 546.706 714.98 100 Amount Piperacillin-Tazobactam 3 50.0 .375 gm In Dextrose/Water 1 50ml.bag @ 12.5 mls/hr IVPB Q8HR JENELLE Rx#: [id number] Propofol 1,000 mg In 100 161.706 484.98 100 ml @ Titrate IV .Q0M JENELLE Rx#:[id number] Sodium Chloride 0.9% 1, 225 000 ml @ 20 mls/hr IV . Q24H JENELLE Rx#:[id number] Sodium Chloride 0.9% 1, 160 180 000 ml @ 20 mls/hr IV . Q24H JENELLE Rx#:[id number] Tube Feeding 240 420 135 Other 30 90 30 Output: Urine 2550 785 205 Emesis 300 Other: Voiding Method Indwelling Catheter Indwelling Catheter Indwelling Catheter ABP, PAP, CO, CI - Last Documented Arterial Blood Pressure 132/58 - Exam Currently sedated. Has an orally placed NG tube and an orally placed endotracheal tube. HEENT examination is grossly unremarkable. Neck supple. Full range of motion. Cardiovascular examination reveals regular rhythm rate. S1-S2 normal. No murmur. Lungs reveal few scattered rhonchi. Crackles in the bilateral bases. Breath sounds are diminished. Abdomen soft bowel sounds are heard. Extremities are intact. No cyanosis clubbing or edema. Skin without rash. Neurologic examination cannot be adequately performed. - Labs CBC & Chem 7: 06/05/17 04:50 06/05/17 04:50 Labs: Abnormal Lab Results - Last 24 Hours (Table) 06/04/17 06/05/17 06/05/17 Range/Units 11:18 04:50 04:50 RBC 3.73 L (4.30-5.90) m/uL Hgb 12.1 L (13.0-17.5) gm/dL Hct 34.6 L (39.0-53.0) % ABG pH (7.35-7.45) ABG pO2 (83-108) mmHg ABG HCO3 (21-25) mmol/L ABG Total CO2 (19-24) mmol/L Glucose 103 H (74-99) mg/dL POC Glucose (mg/dL) 109 H (75-99) mg/dL Calcium 8.3 L (8.4-10.2) mg/dL Total Protein 5.3 L (6.3-8.2) g/dL Albumin 2.8 L (3.5-5.0) g/dL 06/05/17 06/05/17 Range/Units 05:00 05:09 RBC (4.30-5.90) m/uL Hgb (13.0-17.5) gm/dL Hct (39.0-53.0) % ABG pH 7.47 H (7.35-7.45) ABG pO2 77 L (83-108) mmHg ABG HCO3 29 H (21-25) mmol/L ABG Total CO2 30 H (19-24) mmol/L Glucose (74-99) mg/dL POC Glucose (mg/dL) 111 H (75-99) mg/dL Calcium (8.4-10.2) mg/dL Total Protein (6.3-8.2) g/dL Albumin (3.5-5.0) g/dL Assessment and Plan Plan: Impression: #1 Cardiopulmonary arrest secondary to ST segment elevation myocardial infarction with ventricular fibrillation. Status post stenting to the proximal LAD. #2 Acute hypoxic respiratory failure requiring intubation mechanical ventilation secondary to above and with the development of suspected ARDS and right lower lobe consolidation secondary to suspected aspiration pneumonia. Chest x-rays improved. Failure to wean thus far, suspect anoxic brain injury. #3 Acute systolic congestive heart failure with estimated ejection fraction 35- 40%. #4 Acute anoxic brain injury based on slowing of the EEG and difficulty weaning. #5 Chronic and ongoing tobacco dependence. #6 Daily alcohol use. Plan: The patient was seen and evaluated by Dr. Crenshaw. His chest x-ray, ABGs and labs were reviewed. We'll switch him to pressure assist-control at 20 with inspiration time of 1 second. Increase the FiO2 to 50% to maintain O2 saturations in the 90s. PEEP of 10. Repeat blood gases are pending. We will give the patient Lasix 40 mg IV push 1 today. Discontinue the Ativan. We'll continue with his current medications including Zosyn and await final culture sensitivity. He did discuss the plans with the patient's and family again today. We'll continue with daily interruption since sedation. Continue to monitor him here closely in the intensive care unit. We will continue to follow. Critical care time 35 minutes. Time with Patient: Greater than 30
[2017-06-05 11:02] LABS: ABG HCO3 28 mmol/L (21-25); ABG PCO2 43 mmHg (35-45); ABG PH 7.43 (7.35-7.45); ABG PO2 60 mmHg (83-108); ABG TCO2 29 mmol/L (19-24)
[2017-06-05 11:03] LABS: ABG Base Excess 3.6 mmol/L
[2017-06-05 11:26] LABS: Glucose,Whole Blood 105 mg/dL (75-99)
[2017-06-05] MEDS ORDERED: Magnesium Replacement Protocol 1 EACH MISC MISCELLANE PRN (11:27)
[2017-06-05] MEDS: MAGNESIUM SULFATE-D5W PMX 1 GM in DEXTROSE/WATER 1 100ML.BAG IVPB SCH ×2 (12:28→13:57)
[2017-06-05] MEDS: MULTIVITAMINS, THERA 1 EACH TAB PO SCH (12:29)
[2017-06-05] MEDS: SODIUM CHLORIDE 0.9% 1,000 ML IV SCH (12:29)
[2017-06-05] MEDS: THIAMINE 100 MG TAB PO SCH ×2 (12:30→15:58)
--- NOTE | 2017-06-05 13:17 | EEG ---
DATE OF EE06/04/2017 REFERRING PHYSICIAN: Dr. Yancey INTERPRETING PHYSICIAN: Dr. Julisa Allen ELECTROENCEPHALOGRAPHIC EXAMINATION REPORT: INDICATIONS FOR EXAMINATION: This patient is a 41-year-old male who suffered acute cardiac arrest. Patient remains intubated on the ventilator and is unresponsive. Patient is showing signs of failure to wean. This is a follow up EEG for comparison and assessment of alf prognosis. AGE: 41 EEG FINDINGS: A routine 21-channel, awake digital EEG recording was accomplished utilizing the 10-20 International System with bipolar and referential montages. The background activity in the most alert, resting state consists of a low to medium amplitude, poorly developed and poorly sustained 4- 5 Hz activity over the posterior head regions. This posterior rhythm attenuates minimally to stimulation. There is a moderate amount of low amplitude 18-20 Hz beta activity seen in a generalized fashion. Muscle and movement artifact was observed on a few occasions during the tracing. Hyperventilation was not performed. Photic stimulation at flash frequencies of 2 to 30 Hz produced a minimal occipital driving response. No epileptiform discharges were seen. IMPRESSION: This EEG continues to reveal evidence of a severe widespread diffuse disturbance in cerebral function. The EEG failed to reveal any focal, lateralized, or epileptiform abnormalities. Compared to previous EEG performed on 06/01/2017 there is slight worsening of the EEG background. Clinical correlation is recommended. [facility]
--- NOTE | 2017-06-05 14:48 | P.PN ---
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 EMS was notified and he was found to be in ventricular fibrillation without a pulse. He had defibrillation 2 with return of spontaneous circulation. It is unclear exactly how long his down time was but it appears to be less than 10-15 minutes. Initial EKG showed ST segment elevation. He was brought to the ER and a code STEMI was called. 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 He was admitted to ICU and was intubated. He was found to have an elevated total cholesterol level , elevated liver enzymes, elevated creatinine. Critical care with consult for ventilator management. He was also noted to have a history of alcohol use. On the morning of 06/01 his sedation was held and he was awake and followed commands for me. He became increasingly agitated and they had to be placed on sedation. His oxygen requirement elevated. He was also started on a Nimbex drip. His blood pressure remained controlled. He was seen by neurology and had an EEG done which showed diffuse slowing, head CT was negative, neurology will continue to follow. Unable to wean due to developing PNA and ARDS. His ventilator support was able to be weaned down by 06/05 with transition to pressure control. Vomiting with his tube feeds and nasogastric tube on 06/04, KUB was done which was negative, this resolved spontaneously. He continues to struggle with agitation. Patient seen and examined at bedside, he is currently sedated, case discussed with critical care [employer]. No new events overnight, now on pressure control, still on sedation. Objective - Vital Signs Vital signs: Vital Signs Temp 98.9 F 06/05/17 11:00 Pulse 109 H 06/05/17 11:00 Resp 40 H 06/05/17 11:00 BP 99/65 06/05/17 08:00 Pulse Ox 84 L 06/05/17 11:00 Intake & Output 06/04/17 06/05/17 06/05/17 18:59 06:59 18:59 Intake Total 714.350 5840.48 660 Output Total 2850 785 615 Balance -2033.294 702.48 45 Weight 104.9 kg 102.5 kg 102.5 kg Intake: IV 262.5 100 Piperacillin-Tazobactam 3 62.5 .375 gm In Dextrose/Water 1 50ml.bag @ 12.5 mls/hr IVPB Q8HR JENELLE Rx#: [id number] Sodium Chloride 0.9% 1, 200 100 000 ml @ 20 mls/hr IV . Q24H JENELLE Rx#:[id number] Intake, IV Titration 546.706 714.98 200 Amount Piperacillin-Tazobactam 3 50.0 .375 gm In Dextrose/Water 1 50ml.bag @ 12.5 mls/hr IVPB Q8HR JENELLE Rx#: [id number] Propofol 1,000 mg In 100 161.706 484.98 200 ml @ Titrate IV .Q0M JENELLE Rx#:[id number] Sodium Chloride 0.9% 1, 225 000 ml @ 20 mls/hr IV . Q24H JENELLE Rx#:[id number] Sodium Chloride 0.9% 1, 160 180 000 ml @ 20 mls/hr IV . Q24H JENELLE Rx#:[id number] Tube Feeding 240 420 270 Other 30 90 90 Output: Urine 2550 785 615 Emesis 300 Other: Voiding Method Indwelling Catheter Indwelling Catheter Indwelling Catheter ABP, PAP, CO, CI - Last Documented Arterial Blood Pressure 147/79 - Exam General: non toxic, mild distress, appears at stated age, sedated on vent Derm: no rashes, no lesions, no scaling, warm, not diaphoretic Head: atraumatic, normocephalic, symmetric Eyes: EOMI, no lid lag, anicteric sclera, PERRL ENT: Intubated Mouth: no lip lesion, ET tube in place Cardiovascular: S1S2 reg, no murmur, positive posterior tibial pulse bilateral, no edema Lungs: course bs, no rhonchi, no rales , no accessory muscle use, on vent Abdominal: soft, nontender to palpation, no guarding, no appreciable organomegaly Ext: no gross muscle atrophy, no edema, no contractures Neuro: moving independently Psych: on sedation and paralytic - Labs CBC & Chem 7: 06/05/17 04:50 06/05/17 04:50 Labs: Abnormal Lab Results - Last 24 Hours (Table) 06/05/17 06/05/17 06/05/17 Range/Units 04:50 04:50 05:00 RBC 3.73 L (4.30-5.90) m/uL Hgb 12.1 L (13.0-17.5) gm/dL Hct 34.6 L (39.0-53.0) % ABG pH (7.35-7.45) ABG pO2 (83-108) mmHg ABG HCO3 (21-25) mmol/L ABG Total CO2 (19-24) mmol/L ABG O2 Saturation (94-97) % Glucose 103 H (74-99) mg/dL POC Glucose (mg/dL) 111 H (75-99) mg/dL Calcium 8.3 L (8.4-10.2) mg/dL Total Protein 5.3 L (6.3-8.2) g/dL Albumin 2.8 L (3.5-5.0) g/dL 06/05/17 06/05/17 Range/Units 05:09 10:33 RBC (4.30-5.90) m/uL Hgb (13.0-17.5) gm/dL Hct (39.0-53.0) % ABG pH 7.47 H (7.35-7.45) ABG pO2 77 L 60 L (83-108) mmHg ABG HCO3 29 H 28 H (21-25) mmol/L ABG Total CO2 30 H 29 H (19-24) mmol/L ABG O2 Saturation 91.0 L (94-97) % Glucose (74-99) mg/dL POC Glucose (mg/dL) (75-99) mg/dL Calcium (8.4-10.2) mg/dL Total Protein (6.3-8.2) g/dL Albumin (3.5-5.0) g/dL Assessment and Plan (1) STEMI (ST elevation myocardial infarction) Narrative/Plan: ASA, effient, lipitor, cardio recs, echo with cardiomyopathy prn nitro Status: Acute (2) Acute respiratory failure Narrative/Plan: with probable ARDS, Acute hypoxic respiratory fialure, Currently on vent, management per critical care, sedation management as per critical care Status: Acute (3) Dyslipidemia Narrative/Plan: statin therapy Status: Acute (4) Alcohol abuse Narrative/Plan: any withdrawal will be treated with propofol at this time, if able to come off vent will then start symptom triggered therapy. Thiamine supplementation, follow Mg and Phos Status: Acute (5) Nicotine addiction Narrative/Plan: cessation. Status: Acute (6) Ischemic cardiomyopathy Narrative/Plan: EF 35-40%, due to STEMI and cardiac arrest, ASA, lipitor, lopressor. cardiology recommendations appreciated Status: Acute (7) Pneumonia Narrative/Plan: strep pyogenous, Zosyn D#4, follow chest x-ray total clear, bronchodilators, critical care recommendations appreciated Status: Acute (8) ARDS (adult respiratory distress syndrome) Narrative/Plan: Management as per critical care, had consult surgery for trach and PEG but this is being delayed due to Effient use. Status: Acute (9) Anoxic encephalopathy Narrative/Plan: patient was following commands for me on first day after cardiac arrest, await neurologic assessment once sedation can be weaned, neurology recommendations appreciated, EEG diffuse slowing Status: Acute Plan: Resolved: Transamitis MOHSEN cardio pulmonary arrest Elevated CK Ventricular fib Surrogate decision-maker Nasrin [phone] DVT prophylaxis: heparin sc Discused with: nursing, Anticipated discharge: 48- [address]: home A total of 45 minutes was spent on the care of this complex patient more than 50 % of the time was spent in counseling and care coordination.
--- NOTE | 2017-06-05 17:42 | CT ---
EXAMINATION TYPE: CT brain wo con DATE OF EXAM: 06/05/2017 COMPARISON: 06/01/2017 INDICATION: Mental status changes DLP: 1323.4 mGycm, Automated exposure control for dose reduction was used. CONTRAST: None CT of the brain is performed utilizing 3 mm thick sections through the posterior fossa and 3 mm thick sections through the remaining calvarium. Study is performed within 24 hours of arrival to the hosp ital. No abnormal hyperdensity is present to suggest an acute intracranial hemorrhage. No mass lesion is evident. No acute infarcts are evident. Ventricles and sulci are appropriate for the patient age. Mucosal thickening is within the sphenoid sinus and within ethmoid air cells. IMPRESSIONS: 1. Normal CT Brain 2. Paranasal sinus disease. This is worsening from 06/01/2017. This could be related to intubation.
[2017-06-05 18:05] LABS: Glucose,Whole Blood 111 mg/dL (75-99)
[2017-06-05 18:33] LABS: Magnesium 2.3 mg/dL (1.6-2.3)
[2017-06-05] MEDS: ATORVASTATIN 80 MG TAB OG-TUBE SCH (20:47)
--- NOTE | 2017-06-05 23:28 | P.PN ---
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 When EMS arrived at the job site the patient was in ventricular fibrillation without a pulse. He was defibrillated 2 and was transported to the emergency room where he was intubated. He was then taken to the cardiac Switch Tender as his EKG did reveal ST segment elevation. He had a drug-eluting stent placed in the LAD which had 100 % occlusion. He was then stabilized and then transferred to the intensive care unit for further management. The patient remains intubated on the ventilator. He remains on a Diprivan drip. Apparently when they have attempted to wean him he becomes very agitated and combative. He did undergo a routine EEG on admission which was negative for any acute changes. He underwent a routine EEG initially which did reveal diffuse slowing. We are recommending a follow-up EEG to be done tomorrow morning for comparison and long-term prognosis. The patient does respond to painful stimuli only minimally. Cardiology continues to follow him closely as well. He is status post recent anterior wall IL. He is showing very slow recovery in terms of his neurological status. For this reason we have recommended a follow-up EEG to be done today for comparison to his previous study. His has been updated on his overall poor neurological status at this time. She is aware that his prognosis remains very guarded. He will need daily assessment of his overall neurological status to see if he is making improvement. Patient does seem to be slightly improved in terms of his responsiveness. As noted his EEG did show slight worsening as compared to his initial EEG. This was discussed at length with the patient's at bedside. Clinically however he is showing improvement in his overall mental status. We will need to wait to see if this patient can be weaned off of the ventilator. He does seem to be more alert and may benefit from extubation. We will await further recommendations from pulmonary medicine. According to his today in the ICU he did show some changes this morning with the increase in agitation. Apparently he was biting on his ET tube. A special bite device was placed and this is making him slightly more agitated. According to the ICU nurse was concerned the patient may be showing signs of posturing. He was sent for a stat computed tomography scan of the brain earlier today which came back negative for any evidence of acute hemorrhage or stroke. There was no evidence of any cerebral edema. We will continue close neurological follow-up with this patient in the intensive care unit. His overall prognosis at this time remains very guarded. Objective - Vital Signs Vital signs: Vital Signs Temp 98.9 F 06/05/17 20:23 Pulse 80 06/05/17 23:05 Resp 26 H 06/05/17 23:10 BP 115/60 06/05/17 23:00 Pulse Ox 100 06/05/17 23:10 Intake & Output 06/05/17 06/05/17 06/06/17 06:59 18:59 06:59 Intake Total 1487.48 1823.31 462.487 Output Total 785 2545 340 Balance 702.48 -721.69 122.487 Weight 102.5 kg 102.5 kg Intake: IV 262.5 240 100 Piperacillin-Tazobactam 3 62.5 .375 gm In Dextrose/Water 1 50ml.bag @ 12.5 mls/hr IVPB Q8HR JENELLE Rx#: [id number] Sodium Chloride 0.9% 1, 200 240 100 000 ml @ 20 mls/hr IV . Q24H JENELEL Rx#:[id number] Intake, IV Titration 714.98 698.31 152.487 Amount Magnesium Sulfate-D5w Pmx 200 1 gm In Dextrose/Water 1 100ml.bag @ 100 mls/hr IVPB Q1H JENELLE Rx#: [id number] Piperacillin-Tazobactam 3 50.0 .375 gm In Dextrose/Water 1 50ml.bag @ 12.5 mls/hr IVPB Q8HR JENELLE Rx#: [id number] Propofol 1,000 mg In 100 484.98 498.31 152.487 ml @ Titrate IV .Q0M JENELLE Rx#:[id number] Sodium Chloride 0.9% 1, 180 000 ml @ 20 mls/hr IV . Q24H JENELLE Rx#:[id number] Tube Feeding 420 675 180 Other 90 210 30 Output: Urine 785 2245 340 Emesis 300 Other: Voiding Method Indwelling Catheter Indwelling Catheter Indwelling Catheter ABP, PAP, CO, CI - Last Documented Arterial Blood Pressure 103/50 - Exam Physical Examination: PHYSICAL EXAMINATION: Patient is resting comfortably in bed. VITAL SIGNS: Blood pressure is [115/60]. Heart rate is [81]. Respiration is [26] . Temperature is [98.9]. HEENT: Head is atraumatic, neck is supple, there were no carotid bruits. CHEST: Lungs are clear to auscultation and percussion. CARDIAC: S1, S2 normal rate and rhythm. There is no murmur. ABDOMEN: Soft and nontender. Bowel sounds are present. EXTREMITIES: There is no pedal edema. Peripheral pulses are present. Neurological examination: Patient's neurological examination is unchanged from yesterday. He remains on Diprivan and highly sedated. He responds minimally to painful stimuli. His neurological status is unchanged from yesterday. - Labs CBC & Chem 7: 06/05/17 04:50 06/05/17 18:00 Labs: Abnormal Lab Results - Last 24 Hours (Table) 06/05/17 06/05/17 06/05/17 Range/Units 04:50 04:50 05:00 RBC 3.73 L (4.30-5.90) m/uL Hgb 12.1 L (13.0-17.5) gm/dL Hct 34.6 L (39.0-53.0) % ABG pH (7.35-7.45) ABG pO2 (83-108) mmHg ABG HCO3 (21-25) mmol/L ABG Total CO2 (19-24) mmol/L ABG O2 Saturation (94-97) % Glucose 103 H (74-99) mg/dL POC Glucose (mg/dL) 111 H (75-99) mg/dL Calcium 8.3 L (8.4-10.2) mg/dL Total Protein 5.3 L (6.3-8.2) g/dL Albumin 2.8 L (3.5-5.0) g/dL 06/05/17 06/05/17 06/05/17 Range/Units 05:09 10:33 11:23 RBC (4.30-5.90) m/uL Hgb (13.0-17.5) gm/dL Hct (39.0-53.0) % ABG pH 7.47 H (7.35-7.45) ABG pO2 77 L 60 L (83-108) mmHg ABG HCO3 29 H 28 H (21-25) mmol/L ABG Total CO2 30 H 29 H (19-24) mmol/L ABG O2 Saturation 91.0 L (94-97) % Glucose (74-99) mg/dL POC Glucose (mg/dL) 105 H (75-99) mg/dL Calcium (8.4-10.2) mg/dL Total Protein (6.3-8.2) g/dL Albumin (3.5-5.0) g/dL 06/05/17 Range/Units 18:03 RBC (4.30-5.90) m/uL Hgb (13.0-17.5) gm/dL Hct (39.0-53.0) % ABG pH (7.35-7.45) ABG pO2 (83-108) mmHg ABG HCO3 (21-25) mmol/L ABG Total CO2 (19-24) mmol/L ABG O2 Saturation (94-97) % Glucose (74-99) mg/dL POC Glucose (mg/dL) 111 H (75-99) mg/dL Calcium (8.4-10.2) mg/dL Total Protein (6.3-8.2) g/dL Albumin (3.5-5.0) g/dL Assessment and Plan (1) Anoxic encephalopathy Status: Acute Code(s): G93.1 - ANOXIC BRAIN DAMAGE, NOT ELSEWHERE CLASSIFIED (2) Cardiopulmonary arrest with successful resuscitation Status: Acute Code(s): I46.9 - CARDIAC ARREST, CAUSE UNSPECIFIED (3) STEMI (ST elevation myocardial infarction) Status: Acute Code(s): I21.3 - ST ELEVATION (STEMI) MYOCARDIAL INFARCTION OF UNSP SITE (4) Stented coronary artery Status: Acute Code(s): Z95.5 - PRESENCE OF CORONARY ANGIOPLASTY IMPLANT AND GRAFT Plan: This patient is a 41-year-old right-handed white male who was admitted to hospital after suffering a witnessed full cardiac arrest. 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 He was working at the [facility] [employer] which is very close to the hospital. Apparently he was working on the side and suddenly collapsed. Colleagues she is very much aware of his very guarded condition at this time. She is aware of her husbands very guarded condition at this time. We will continue close neurological follow-up with the patient in the ICU setting. She is aware of her husbands very guarded condition. We are recommending found him and found him to be in full cardiac arrest. He was resuscitated immediately. His downtime is estimated to be at least 5-10 minutes. EMS arrived and found him collapsed and placed him on a gurney. He was subsequent he brought into the emergency room for further evaluation. Cardiology did take the patient to the catheterization lab. He was found to have complete occlusion of the LAD. This required a stent placement. The patient was then transferred to the intensive care unit. He remains lethargic and obtunded most of the day. This was also verified by the ICU nursing staff. We did review of the results of his CAT scan and EEG with the patient's at bedside. All of her questions were answered. She is aware of his very guarded condition. We are recommending repeat EEG is a follow-up study to be done tomorrow for follow-up. His overall neurological status has shown very little change from yesterday. We will continue to follow the patient closely in the ICU. Pulmonary medicine is considering a trach and PEG for this patient if he shows no significant improvement in his overall status in the next 24-48 hours. His neurological examination does show improvement today as compared to yesterday. We will continue close neurological follow-up of this patient in the intensive care unit. Hopefully he will be able to be extubated off of the ventilator very shortly. We will continue close neurological follow-up of this patient in the intensive care unit. Patient was sent for repeat computed tomography scan of the brain which came back negative for any acute changes. No evidence of acute stroke or hemorrhage. There is no evidence of cerebral edema. It is unclear whether the patient actually recognizes his . We will need to continue to follow his neurological status closely in the ICU setting. His overall prognosis as noted remains guarded. We will continue close follow-up of this patient in the intensive care unit.
[2017-06-06] MEDS: IPRATROPIUM-ALBUTEROL 3 ML NEB INHALATION SCH ×7 (03:03→22:55)
[2017-06-06] MEDS: PROPOFOL 1,000 MG/100 ML VIAL IV SCH ×3 (04:18→06:42)
[2017-06-06 04:23] LABS: Basophils % (A) 0 %; CH 32.8; CHCM 35.4; Eosinophils # (A) 0.6 k/uL (0-0.7); Eosinophils % (A) 6 %; HCT 35.4 % (39.0-53.0); HDW 2.99; HGB 12.1 gm/dL (13.0-17.5); Luc # (Auto) 0.27; Luc % (Auto) 3; Lymphocytes # (A) 2.7 k/uL (1.0-4.8); Lymphocytes % (A) 26 %; MCH 31.8 pg (25.0-35.0); MCHC 34.1 g/dL (31.0-37.0); MCV 93.2 fL (80.0-100.0); Mean Platelet Volume 7.3; Monocytes # (A) 0.6 k/uL (0-1.0); Monocytes % (A) 6 %; Neutrophils % (A) 59 %; RDW 14.5 % (11.5-15.5); WBC 10.1 k/uL (3.8-10.6); WBC (Perox) 9.98
[2017-06-06 04:41] LABS: ALT 55 U/L (21-72); AST 43 U/L (17-59); Alkaline Phosphatase 105 U/L (38-126); Anion Gap 6 mmol/L; Blood Urea Nitrogen 26 mg/dL (9-20); Calcium 8.3 mg/dL (8.4-10.2); Carbon Dioxide 27 mmol/L (22-30); Chloride 103 mmol/L (98-107); Glucose 95 mg/dL (74-99); Magnesium 2.3 mg/dL (1.6-2.3); Non-African American GFR(MDRD) >60 (>60 ml/min/1.73 sqM); Phosphorous 2.9 mg/dL (2.5-4.5); Potassium 3.7 mmol/L (3.5-5.1); Sodium 136 mmol/L (137-145); Total Bilirubin 1.4 mg/dL (0.2-1.3); Total Protein 5.7 g/dL (6.3-8.2)
[2017-06-06] MEDS ORDERED: Potassium Replacement Protocol 1 EACH MISC MISCELLANE PRN (04:57)
[2017-06-06] MEDS ORDERED: POTASSIUM CHLORIDE ORAL LIQUID 40 MEQ/30 ML CUP NG-TUBE SCH (05:00)
[2017-06-06 05:26] LABS: ABG Base Excess 3.6 mmol/L; ABG HCO3 26 mmol/L (21-25); ABG PCO2 26 mmHg (35-45); ABG PH 7.61 (7.35-7.45); ABG PO2 88 mmHg (83-108); ABG TCO2 26 mmol/L (19-24)
[2017-06-06] MEDS: INSULIN LISPRO (humaLOG) 300 UNIT/3 ML VIAL SQ SCH (05:38)
--- NOTE | 2017-06-06 07:15 | XR ---
EXAMINATION TYPE: XR chest 1V DATE OF EXAM: 06/06/2017 COMPARISON: 06/05/2017 HISTORY: Shortness of breath TECHNIQUE: Single frontal view of the chest is obtained. FINDINGS: ET tube approximately 6 cm above magalis. NG tube extends into the abdomen. There is left l ower lobe consolidation and small bilateral pleural effusion. No pneumothorax. IMPRESSION: Left basilar infiltrate and tiny bilateral effusions.
[2017-06-06] MEDS: HYDROmorphone 1 MG/ML 1 ML SYRINGE IVP PRN (08:00)
[2017-06-06] MEDS: PIPERACILLIN-TAZOBACTAM 3.375 GM in DEXTROSE/WATER 1 50ML.BAG IVPB SCH ×3 (08:37→23:58)
--- NOTE | 2017-06-06 09:14 | P.PN ---
Subjective Progress note dated 06/01/2017 This is a 41-year-old male who has no major medical history. He apparently had a cardiopulmonary arrest while worsening over the hospital. The patient apparently had ventricular fibrillation was defibrillated. He was resuscitated taken to the lab manager. Catheterization revealed a totally occluded LAD and he had a stent placed. He is currently here on the ventilator. We tried weaning him this morning. We stopped his propofol. He became very agitated. The patient is currently still on the ventilator. We had to sedate him further with Precedex or dexmedetomidine and also give him a paralytic agent Nimbex. Currently the patient's on the ventilator. He's on the assist control mode at 20, [place] for 50 FiO2 up to 100% PEEP increased to 10. We'll titrate the FiO2 down. Blood gases showed a pO2 of 116 a pCO2 35 and a pH 7.46. This is consistent with hyperoxemia and a mild respiratory alkalosis. The patient's on Precedex currently appointment for mics. The propofol will be turned off. He is getting 9 IV at 75 mL an hour. Amiodarone is been turned off. We'll get some tube feeds started. Progress note dated 06/06/2017 41-year-old male with a previous negative medical history. 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 The patient apparently had ventricular fibrillation was defibrillated. He was resuscitated and taken directly to the catheterization laboratory where he was found have a totally occluded LAD. A stent was placed. He came back to us on the ventilator. Since that time, we had a very hard time with him weaning. It mostly centered around the fact that he becomes very agitated. His mental status has not been good. We try to not a lot of different medications including propofol and dexmedetomidine. At one point, we did have him paralyzed for 24 hours. We put lines in 2 days ago including radial art line and a central venous catheter IV. Yesterday we switched him from volume assist control to pressure assist control with a inspiratory pressure of 20 cm water and inspiratory time of 1 second. He seemed to do better on that so more synchronous on the ventilator. The patient's currently on rate of 22 inspiratory pressure 20 cm water inspiratory time of 1 second and FiO2 45% PEEP of 10. Blood gases on those settings showed a pO2 of 88 a pCO2 of 25 and a pH 7.61. Blood gases are consistent with normoactive see me and a combined respiratory and metabolic alkalosis. His rate was at 26 and these blood gases and was turned down to 22. His IV is appointment 9 IV at 20 mL an hour propofol at 75 mcg/kg/m and vital high protein at 45 mL an hour with a goal of 45 mL an hour. The patient had a head CT which was negative. I will suspect 1. It did show significant sinus disease. Initially when he came to see had a nasogastric tube and I asked him to remove it in place orally. He may have developed nosocomial sinusitis from that tube. Return to decrease and stop the propofol and wake him up. Put him on PSV 10 CPAP of 5 when that happens. We' ll see how he does. His only positive culture was a sputum sample showing Streptococcus pyogenes. He is on appropriate antibiotics for that. Objective - Vital Signs Vital signs: Vital Signs Temp 98.0 F 06/06/17 08:00 Pulse 86 06/06/17 08:15 Resp 21 06/06/17 08:00 BP 137/69 06/06/17 08:00 Pulse Ox 93 L 06/06/17 08:00 Intake & Output 06/05/17 06/06/17 06/06/17 18:59 06:59 18:59 Intake Total 1823.31 1492.459 Output Total 2545 1010 Balance -721.69 482.459 Weight 102.5 kg 101.6 kg Intake: IV 240 310.0 Piperacillin-Tazobactam 3 50.0 .375 gm In Dextrose/Water 1 50ml.bag @ 12.5 mls/hr IVPB Q8HR JENELLE Rx#: [id number] Sodium Chloride 0.9% 1, 240 260 000 ml @ 20 mls/hr IV . Q24H JENELLE Rx#:[id number] Intake, IV Titration 698.31 372.459 Amount Magnesium Sulfate-D5w Pmx 200 1 gm In Dextrose/Water 1 100ml.bag @ 100 mls/hr IVPB Q1H JENELLE Rx#: [id number] Propofol 1,000 mg In 100 498.31 372.459 ml @ Titrate IV .Q0M JENELLE Rx#:[id number] Tube Feeding 675 720 Other 210 90 Output: Urine 2245 1010 Emesis 300 Other: Voiding Method Indwelling Catheter Indwelling Catheter ABP, PAP, CO, CI - Last Documented Arterial Blood Pressure 103/50 - Exam No acute distress, not oriented. Currently sedated. He is orally place NG tube and an orally placed endotracheal tube. HEENT examination is grossly unremarkable. Neck supple. Full range of motion. Cardiovascular examination reveals regular rhythm rate. S1-S2 normal. No murmur. Lungs reveal few scattered rhonchi. Breath sounds are diminished. Abdomen soft bowel sounds are heard. Extremities are intact. No cyanosis clubbing or edema. Skin without rash. Neurologic examination cannot be adequately performed. - Labs CBC & Chem 7: 06/06/17 04:00 06/06/17 04:00 Labs: Abnormal Lab Results - Last 24 Hours (Table) 06/05/17 06/05/17 06/05/17 Range/Units 10:33 11:23 18:03 RBC (4.30-5.90) m/uL Hgb (13.0-17.5) gm/dL Hct (39.0-53.0) % ABG pH (7.35-7.45) ABG pCO2 (35-45) mmHg ABG pO2 60 L (83-108) mmHg ABG HCO3 28 H (21-25) mmol/L ABG Total CO2 29 H (19-24) mmol/L ABG O2 Saturation 91.0 L (94-97) % Sodium (137-145) mmol/L BUN (9-20) mg/dL POC Glucose (mg/dL) 105 H 111 H (75-99) mg/dL Calcium (8.4-10.2) mg/dL Total Bilirubin (0.2-1.3) mg/dL Total Protein (6.3-8.2) g/dL Albumin (3.5-5.0) g/dL 06/06/17 06/06/17 06/06/17 Range/Units 04:00 04:00 04:32 RBC 3.80 L (4.30-5.90) m/uL Hgb 12.1 L (13.0-17.5) gm/dL Hct 35.4 L (39.0-53.0) % ABG pH 7.61 H* (7.35-7.45) ABG pCO2 26 L (35-45) mmHg ABG pO2 (83-108) mmHg ABG HCO3 26 H (21-25) mmol/L ABG Total CO2 26 H (19-24) mmol/L ABG O2 Saturation 98.0 H (94-97) % Sodium 136 L (137-145) mmol/L BUN 26 H (9-20) mg/dL POC Glucose (mg/dL) (75-99) mg/dL Calcium 8.3 L (8.4-10.2) mg/dL Total Bilirubin 1.4 H (0.2-1.3) mg/dL Total Protein 5.7 L (6.3-8.2) g/dL Albumin 3.1 L (3.5-5.0) g/dL Assessment and Plan (1) Nicotine addiction Status: Acute (2) Cardiopulmonary arrest with successful resuscitation Status: Acute (3) STEMI (ST elevation myocardial infarction) Status: Acute (4) Ventricular fibrillation Status: Resolved (5) Stented coronary artery Status: Acute (6) Sinusitis Status: Acute Plan: Plan dated 05/31/2017 The patient ventilator we switched to the to a rate of 20 and a tidal [place] at 450. I've asked Sveta the respiratory therapist to get a blood gas. We'll had doing nebs every 4 [id number]. The patient be watched very closely. Additional recommendations suggestions are forthcoming. Plan dated 06/01/2017 The patient will get an EEG and will send the patient for CT of the brain. The patient's will have tube feeds started. We'll get dietary involved. Currently we'll DC the propofol and put him on Precedex. The patient's FiO2 was increased to 100%. We bumped PEEP up to 10. We'll start titrating the FiO2 down. Additional recommendations and suggestions are forthcoming. Prognosis is very guarded. I'm concerned about anoxic brain injury. Critical care time on this patient is 38 minutes. Plan dated 06/06/2017 The patient will have his sedation weaned and held. We'll place him on pressure support of 10 and CPAP of 5. We'll see if he is ready to start weaning. The patient's getting her friction with vital HPI of 45 mL an hour with a goal of 45 mL an hour. His IV is on normal saline IV at 20 mL an hour sedation is propofol at 75 mics per kilogram per minute. Currently he is on pressure assist control ventilation with inspiratory pressure of 20 and inspiratory time of 1 second. His FiO2 is 45% and speech is 10. Blood gases did show a respiratory and metabolic alkalosis. Respiratory rate was turned down because he was riding the ventilator. Additional recommendations and suggestions are forthcoming. Critical care time is 40 minutes. I'll have a family discussion with the family hasn't done along. Additional recommendations suggestions are forthcoming. Time with Patient: Greater than 30
[2017-06-06] MEDS: METOPROLOL TARTRATE 12.5 MG TAB PO SCH (11:56)
[2017-06-06] MEDS: PANTOPRAZOLE 40 MG/10 ML VIAL IVP SCH (11:56)
[2017-06-06] MEDS: LISINOPRIL 10 MG TAB PO SCH (11:56)
[2017-06-06] MEDS: HEPARIN SODIUM,PORCINE 5,000 UNIT/ML 1 ML VIAL SQ SCH ×3 (11:56→23:58)
[2017-06-06] MEDS: MULTIVITAMINS, THERA 1 EACH TAB PO SCH (11:58)
--- NOTE | 2017-06-06 12:04 | P.PN ---
Subjective Patient extubated this morning. Alert, follows commands, coughing He denied any chest discomfort to [place] Blood pressure 137/69 mmHg heart rate in the 80s, afebrile No murmurs no gallops no rub Normal breath sounds no rhonchi no crackles reduced history effort Abdomen soft nontender Extremities are warm no edema Impression Erf-en-haxeidda VF arrest ST elevation IA, anterior Ischemic cardiomyopathy, prolonged intubation History of alcohol use History of smoking He had an occluded LAD proximal , he also had a distal LAD lesion that was chronic with associated collaterals Suggest IV Lopressor for now and once he can swallow by mouth Lopressor will be released to treated and then DEBRA inhibitor and spironolactone and dual antiplatelet agents will continue statins will continue Objective - Vital Signs Vital signs: Vital Signs Temp 98.0 F 06/06/17 08:00 Pulse 86 06/06/17 08:15 Resp 21 06/06/17 08:00 BP 137/69 06/06/17 08:00 Pulse Ox 93 L 06/06/17 08:00 Intake & Output 06/05/17 06/06/17 06/06/17 18:59 06:59 18:59 Intake Total 1823.31 1492.459 Output Total 2545 1010 Balance -721.69 482.459 Weight 102.5 kg 101.6 kg Intake: IV 240 310.0 Piperacillin-Tazobactam 3 50.0 .375 gm In Dextrose/Water 1 50ml.bag @ 12.5 mls/hr IVPB Q8HR J[facility]ELLE Rx#: [id number] Sodium Chloride 0.9% 1, 240 260 000 ml @ 20 mls/hr IV . Q24H JENELLE Rx#:[id number] Intake, IV Titration 698.31 372.459 Amount Magnesium Sulfate-D5w Pmx 200 1 gm In Dextrose/Water 1 100ml.bag @ 100 mls/hr IVPB Q1H JENELLE Rx#: [id number] Propofol 1,000 mg In 100 498.31 372.459 ml @ Titrate IV .Q0M JENELLE Rx#:[id number] Tube Feeding 675 720 Other 210 90 Output: Urine 2245 1010 Emesis 300 Other: Voiding Method Indwelling Catheter Indwelling Catheter Indwelling Catheter ABP, PAP, CO, CI - Last Documented Arterial Blood Pressure 103/50 - Labs CBC & Chem 7: 06/06/17 04:00 06/06/17 11:23 Labs: Abnormal Lab Results - Last 24 Hours (Table) 06/05/17 06/06/17 06/06/17 Range/Units 18:03 04:00 04:00 RBC 3.80 L (4.30-5.90) m/uL Hgb 12.1 L (13.0-17.5) gm/dL Hct 35.4 L (39.0-53.0) % ABG pH (7.35-7.45) ABG pCO2 (35-45) mmHg ABG HCO3 (21-25) mmol/L ABG Total CO2 (19-24) mmol/L ABG O2 Saturation (94-97) % Sodium 136 L (137-145) mmol/L BUN 26 H (9-20) mg/dL POC Glucose (mg/dL) 111 H (75-99) mg/dL Calcium 8.3 L (8.4-10.2) mg/dL Total Bilirubin 1.4 H (0.2-1.3) mg/dL Total Protein 5.7 L (6.3-8.2) g/dL Albumin 3.1 L (3.5-5.0) g/dL 06/06/17 Range/Units 04:32 RBC (4.30-5.90) m/uL Hgb (13.0-17.5) gm/dL Hct (39.0-53.0) % ABG pH 7.61 H* (7.35-7.45) ABG pCO2 26 L (35-45) mmHg ABG HCO3 26 H (21-25) mmol/L ABG Total CO2 26 H (19-24) mmol/L ABG O2 Saturation 98.0 H (94-97) % Sodium (137-145) mmol/L BUN (9-20) mg/dL POC Glucose (mg/dL) (75-99) mg/dL Calcium (8.4-10.2) mg/dL Total Bilirubin (0.2-1.3) mg/dL Total Protein (6.3-8.2) g/dL Albumin (3.5-5.0) g/dL
[2017-06-06] MEDS: METOPROLOL TARTRATE 5 MG/5 ML VIAL IVP SCH ×4 (12:37→23:58)
[2017-06-06 12:38] LABS: Glucose,Whole Blood 110 mg/dL (75-99)
[2017-06-06] MEDS ORDERED: ONDANSETRON 4 MG/2 ML VIAL IVP PRN (15:12)
--- NOTE | 2017-06-06 17:21 | P.PN ---
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 EMS was notified and he was found to be in ventricular fibrillation without a pulse. He had defibrillation 2 with return of spontaneous circulation. It is unclear exactly how long his down time was but it appears to be less than 10-15 minutes. Initial EKG showed ST segment elevation. He was brought to the ER and a code STEMI was called. 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 He was admitted to ICU and was intubated. He was found to have an elevated total cholesterol level , elevated liver enzymes, elevated creatinine. Critical care with consult for ventilator management. He was also noted to have a history of alcohol use. On the morning of 06/01 his sedation was held and he was awake and followed commands for me. He became increasingly agitated and they had to be placed on sedation. His oxygen requirement elevated. He was also started on a Nimbex drip. His blood pressure remained controlled. He was seen by neurology and had an EEG done which showed diffuse slowing, head CT was negative, neurology will continue to follow. Unable to wean due to developing PNA and ARDS. His ventilator support was able to be weaned down by 06/05 with transition to pressure control. Vomiting with his tube feeds and nasogastric tube on 06/04, KUB was done which was negative, this resolved spontaneously. He continued to struggle with agitation. He was successfully extubated on 06/06. Patient seen and examined at bedside with present. He was extubated earlier in the day. He still has confusion. He is able to follow commands. He is unsure what sent him to the Hospital. He denies any chest pain, shortness of breath. He complains of nausea, vomiting. He also complains of slowed thinking. Objective - Vital Signs Vital signs: Vital Signs Temp 98.3 F 06/06/17 12:00 Pulse 98 06/06/17 15:37 Resp 11 L 06/06/17 15:37 BP 143/89 06/06/17 15:47 Pulse Ox 90 L 06/06/17 15:00 Intake & Output 06/05/17 06/06/17 06/06/17 18:59 06:59 18:59 Intake Total 1823.31 1492.459 357.5 Output Total 2545 1010 1324 Balance -721.69 482.459 -966.5 Weight 102.5 kg 101.6 kg 101.6 kg Intake: IV 240 310.0 222.5 Piperacillin-Tazobactam 3 50.0 62.5 .375 gm In Dextrose/Water 1 50ml.bag @ 12.5 mls/hr IVPB Q8HR J[facility]LE Rx#: [id number] Sodium Chloride 0.9% 1, 240 260 160 000 ml @ 20 mls/hr IV . Q24H JENELLE Rx#:[id number] Intake, IV Titration 698.31 372.459 Amount Magnesium Sulfate-D5w Pmx 200 1 gm In Dextrose/Water 1 100ml.bag @ 100 mls/hr IVPB Q1H JENELLE Rx#: [id number] Propofol 1,000 mg In 100 498.31 372.459 ml @ Titrate IV .Q0M JENELLE Rx#:[id number] Tube Feeding 675 720 135 Other 210 90 Output: Urine 2245 1010 1215 Emesis 300 109 Other: Voiding Method Indwelling Catheter Indwelling Catheter Indwelling Catheter # Bowel Movements 1 ABP, PAP, CO, CI - Last Documented Arterial Blood Pressure 138/60 - Exam General: non toxic, mild distress, appears at stated age, normal weight Derm: no rashes, no lesions, no scaling, warm, not diaphoretic Head: atraumatic, normocephalic, symmetric Eyes: EOMI, no lid lag, anicteric sclera, PERRL Mouth: no lip lesion, mucus membranes moist Cardiovascular: S1S2 reg, no murmur, positive posterior tibial pulse bilateral, no edema Lungs: course bs, no rhonchi, no rales , no accessory muscle use Abdominal: soft, nontender to palpation, no guarding, no appreciable organomegaly Ext: no gross muscle atrophy, no edema, no contractures Neuro: Cranial nerves II through XII grossly intact, moving all 4 extremities independently Psych: Awake, oriented to self and hospital, does not know year, knows date of - Labs CBC & Chem 7: 06/06/17 04:00 06/06/17 11:23 Labs: Abnormal Lab Results - Last 24 Hours (Table) 06/05/17 06/06/17 06/06/17 Range/Units 18:03 04:00 04:00 RBC 3.80 L (4.30-5.90) m/uL Hgb 12.1 L (13.0-17.5) gm/dL Hct 35.4 L (39.0-53.0) % ABG pH (7.35-7.45) ABG pCO2 (35-45) mmHg ABG HCO3 (21-25) mmol/L ABG Total CO2 (19-24) mmol/L ABG O2 Saturation (94-97) % Sodium 136 L (137-145) mmol/L BUN 26 H (9-20) mg/dL POC Glucose (mg/dL) 111 H (75-99) mg/dL Calcium 8.3 L (8.4-10.2) mg/dL Total Bilirubin 1.4 H (0.2-1.3) mg/dL Total Protein 5.7 L (6.3-8.2) g/dL Albumin 3.1 L (3.5-5.0) g/dL 06/06/17 06/06/17 Range/Units 04:32 12:35 RBC (4.30-5.90) m/uL Hgb (13.0-17.5) gm/dL Hct (39.0-53.0) % ABG pH 7.61 H* (7.35-7.45) ABG pCO2 26 L (35-45) mmHg ABG HCO3 26 H (21-25) mmol/L ABG Total CO2 26 H (19-24) mmol/L ABG O2 Saturation 98.0 H (94-97) % Sodium (137-145) mmol/L BUN (9-20) mg/dL POC Glucose (mg/dL) 110 H (75-99) mg/dL Calcium (8.4-10.2) mg/dL Total Bilirubin (0.2-1.3) mg/dL Total Protein (6.3-8.2) g/dL Albumin (3.5-5.0) g/dL Assessment and Plan (1) STEMI (ST elevation myocardial infarction) Narrative/Plan: ASA, effient, lipitor, metoprolol cardio recs, echo with cardiomyopathy prn nitro Status: Acute (2) Acute respiratory failure Narrative/Plan: Successfully extubated on June 06 Status: Acute (3) Dyslipidemia Narrative/Plan: statin therapy Status: Acute (4) Alcohol abuse Narrative/Plan: Will attempt to avoid Ativan if possible with possible anoxic encephalopathy, nurse instructed to call with tachycardia, elevated heart rate, diaphoresis, or increased confusion. Thiamine supplementation, follow Mg and Phos Status: Acute (5) Nicotine addiction Narrative/Plan: cessation. Status: Acute (6) Ischemic cardiomyopathy Narrative/Plan: EF 35-40%, due to STEMI and cardiac arrest, ASA, lipitor, lopressor. cardiology recommendations appreciated Status: Acute (7) Pneumonia Narrative/Plan: strep pyogenous, Zosyn D#5, follow chest x-ray till clear, bronchodilators, critical care recommendations appreciated Status: Acute (8) Anoxic encephalopathy Narrative/Plan: Appears to have possible mild encephalopathy versus confusion from propofol versus alcohol withdrawal. neurology recommendations appreciated, EEG diffuse slowing Status: Acute Plan: Resolved: Transamitis MOHSEN cardio pulmonary arrest Elevated CK Ventricular fib ARDS Surrogate decision-maker Nasrin [phone] DVT prophylaxis: heparin sc Discused with: nursing, Anticipated discharge: 48- [address]: home A total of 35 minutes was spent on the care of this complex patient more than 50 % of the time was spent in counseling and care coordination.
[2017-06-06] MEDS: PRASUGREL 10 MG TAB PO SCH (17:55)
[2017-06-06] MEDS: ASPIRIN 325 MG TAB PO SCH (17:55)
[2017-06-06] MEDS: SODIUM CHLORIDE 0.9% 1,000 ML IV SCH (21:32)
[2017-06-06] MEDS: ATORVASTATIN 80 MG TAB OG-TUBE SCH (21:32)
--- NOTE | 2017-06-06 22:05 | P.PN ---
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 When EMS arrived at the job site the patient was in ventricular fibrillation without a pulse. He was defibrillated 2 and was transported to the emergency room where he was intubated. He was then taken to the cardiac [facility] [employer] as his EKG did reveal ST segment elevation. He had a drug-eluting stent placed in the LAD which had 100 % occlusion. He was then stabilized and then transferred to the intensive care unit for further management. The patient remains intubated on the ventilator. He remains on a Diprivan drip. Apparently when they have attempted to wean him he becomes very agitated and combative. He did undergo a routine EEG on admission which was negative for any acute changes. He underwent a routine EEG initially which did reveal diffuse slowing. We are recommending a follow-up EEG to be done tomorrow morning for comparison and long-term prognosis. The patient does respond to painful stimuli only minimally. Cardiology continues to follow him closely as well. He is status post recent anterior wall [place]. He is showing very slow recovery in terms of his neurological status. For this reason we have recommended a follow-up EEG to be done today for comparison to his previous study. His has been updated on his overall poor neurological status at this time. She is aware that his prognosis remains very guarded. He will need daily assessment of his overall neurological status to see if he is making improvement. Patient does seem to be slightly improved in terms of his responsiveness. As noted his EEG did show slight worsening as compared to his initial EEG. This was discussed at length with the patient's at bedside. Clinically however he is showing improvement in his overall mental status. We will need to wait to see if this patient can be weaned off of the ventilator. He does seem to be more alert and may benefit from extubation. We will await further recommendations from pulmonary medicine. According to his today in the ICU he did show some changes this morning with the increase in agitation. Apparently he was biting on his ET tube. A special bite device was placed and this is making him slightly more agitated. According to the ICU nurse was concerned the patient may be showing signs of posturing. He was sent for a stat computed tomography scan of the brain earlier today which came back negative for any evidence of acute hemorrhage or stroke. There was no evidence of any cerebral edema. We will continue close neurological follow-up with this patient in the intensive care unit. The patient was extubated late this afternoon. He is now resting comfortably in the intensive care unit. His is at bedside. He seems to be doing much better and is able to answer simple questions appropriately. His mental status has shown significant improvement since extubation. We will continue close neurological follow-up of this patient in the intensive care unit. Case was discussed this evening with the patient and his at bedside. All of their questions were answered. His is very happy with his significant improvement in his overall mental status and neurological status. His overall prognosis at this time remains very guarded. Objective - Vital Signs Vital signs: Vital Signs Temp 98.3 F 06/06/17 12:00 Pulse 98 06/06/17 12:00 Resp 12 06/06/17 12:00 BP 140/88 06/06/17 12:00 Pulse Ox 90 L 06/06/17 12:00 Intake & Output 06/05/17 06/06/17 06/06/17 18:59 06:59 18:59 Intake Total 1823.31 1492.459 285.0 Output Total 2545 1010 904 Balance -721.69 482.459 -619.0 Weight 102.5 kg 101.6 kg 101.6 kg Intake: IV 240 310.0 150.0 Piperacillin-Tazobactam 3 50.0 50.0 .375 gm In Dextrose/Water 1 50ml.bag @ 12.5 mls/hr IVPB Q8HR [facility] Rx#: [id number] Sodium Chloride 0.9% 1, 240 260 100 000 ml @ 20 mls/hr IV . Q24H [facility] Rx#:[id number] Intake, IV Titration 698.31 372.459 Amount Magnesium Sulfate-D5w Pmx 200 1 gm In Dextrose/Water 1 100ml.bag @ 100 mls/hr IVPB Q1H [facility] Rx#: [id number] Propofol 1,000 mg In 100 498.31 372.459 ml @ Titrate IV .Q0M [facility] Rx#:[id number] Tube Feeding 675 720 135 Other 210 90 Output: Urine 2245 1010 895 Emesis 300 9 Other: Voiding Method Indwelling Catheter Indwelling Catheter Indwelling Catheter # Bowel Movements 1 ABP, PAP, CO, CI - Last Documented Arterial Blood Pressure 138/60 - Exam Physical Examination: PHYSICAL EXAMINATION: Patient is resting comfortably in bed. Patient was extubated and is resting comfortably in the intensive care unit. VITAL SIGNS: Blood pressure is [145/90]. Heart rate is [105]. Respiration is [17 ]. Temperature is [98.3]. HEENT: Head is atraumatic, neck is supple, there were no carotid bruits. CHEST: Lungs are clear to auscultation and percussion. CARDIAC: S1, S2 normal rate and rhythm. There is no murmur. ABDOMEN: Soft and nontender. Bowel sounds are present. EXTREMITIES: There is no pedal edema. Peripheral pulses are present. Neurological examination: Patient was extubated this afternoon. Patient is able to answer simple questions. He is alert and oriented 3. His speech is fluent with no evidence of any aphasia or dysarthria. His memory and intellectual functions are much improved. Cranial nerve examination: Cranial nerves II through XII are grossly intact. Motor examination: There was no pronator drift. Muscle tone is normal. Muscle strength testing reveals 3+/5 strength throughout. Sensory examination was intact. Deep tendon reflexes: The DTRs are 1+ and symmetric. Plantar responses flexor bilaterally. - Labs CBC & Chem 7: 06/06/17 04:00 06/06/17 11:23 Labs: Abnormal Lab Results - Last 24 Hours (Table) 06/05/17 06/06/17 06/06/17 Range/Units 18:03 04:00 04:00 RBC 3.80 L (4.30-5.90) m/uL Hgb 12.1 L (13.0-17.5) gm/dL Hct 35.4 L (39.0-53.0) % ABG pH (7.35-7.45) ABG pCO2 (35-45) mmHg ABG HCO3 (21-25) mmol/L ABG Total CO2 (19-24) mmol/L ABG O2 Saturation (94-97) % Sodium 136 L (137-145) mmol/L BUN 26 H (9-20) mg/dL POC Glucose (mg/dL) 111 H (75-99) mg/dL Calcium 8.3 L (8.4-10.2) mg/dL Total Bilirubin 1.4 H (0.2-1.3) mg/dL Total Protein 5.7 L (6.3-8.2) g/dL Albumin 3.1 L (3.5-5.0) g/dL 06/06/17 06/06/17 Range/Units 04:32 12:35 RBC (4.30-5.90) m/uL Hgb (13.0-17.5) gm/dL Hct (39.0-53.0) % ABG pH 7.61 H* (7.35-7.45) ABG pCO2 26 L (35-45) mmHg ABG HCO3 26 H (21-25) mmol/L ABG Total CO2 26 H (19-24) mmol/L ABG O2 Saturation 98.0 H (94-97) % Sodium (137-145) mmol/L BUN (9-20) mg/dL POC Glucose (mg/dL) 110 H (75-99) mg/dL Calcium (8.4-10.2) mg/dL Total Bilirubin (0.2-1.3) mg/dL Total Protein (6.3-8.2) g/dL Albumin (3.5-5.0) g/dL Assessment and Plan (1) Anoxic encephalopathy Status: Acute Code(s): G93.1 - ANOXIC BRAIN DAMAGE, NOT ELSEWHERE CLASSIFIED (2) Cardiopulmonary arrest with successful resuscitation Status: Acute Code(s): I46.9 - CARDIAC ARREST, CAUSE UNSPECIFIED (3) STEMI (ST elevation myocardial infarction) Status: Acute Code(s): I21.3 - ST ELEVATION (STEMI) MYOCARDIAL INFARCTION OF UNSP SITE (4) Stented coronary artery Status: Acute Code(s): Z95.5 - PRESENCE OF CORONARY ANGIOPLASTY IMPLANT AND GRAFT Plan: This patient is a 41-year-old male who initially was admitted to the intensive care unit after suffering an acute cardiac arrest. He was taken to the [facility] where he was found to have complete occlusion of the LAD. He underwent a stent placement and was transferred to the intensive care unit. He was intubated at that time. This afternoon he was able to be extubated off of the ventilator. He is doing much better and is now alert and able to answer simple questions. He did undergo recent follow-up computed tomography scan of the brain which failed to reveal any acute changes. Patient is now conversing and is able to answer most all questions without any difficulties. The patient and his were updated on his overall condition today at the bedside in the ICU. If he continues to do well most likely he will be able to transfer out of the ICU tomorrow. We will continue close neurological follow-up with this patient in the intensive care unit. This patient has suffered acute anoxic encephalopathy following cardiac arrest and is showing signs of significant improvement. We will continue close neurological follow-up with this patient during this admission. Case was discussed at length with the patient and his . All of their questions were answered. They're aware of his still guarded condition.
[2017-06-07] MEDS: METOPROLOL TARTRATE 5 MG/5 ML VIAL IVP SCH ×2 (03:50→07:59)
[2017-06-07 04:42] LABS: Basophils % (A) 0 %; CH 31.7; CHCM 34.7; Eosinophils # (A) 0.1 k/uL (0-0.7); Eosinophils % (A) 1 %; HCT 38.5 % (39.0-53.0); HDW 3.03; HGB 13.4 gm/dL (13.0-17.5); Luc # (Auto) 0.32; Luc % (Auto) 2; Lymphocytes # (A) 1.7 k/uL (1.0-4.8); Lymphocytes % (A) 10 %; MCHC 34.8 g/dL (31.0-37.0); Mean Platelet Volume 7.1; Monocytes # (A) 0.8 k/uL (0-1.0); Monocytes % (A) 5 %; Neutrophils # (A) 13.9 k/uL (1.3-7.7); Neutrophils % (A) 82 %; RBC 4.18 m/uL (4.30-5.90); RDW 13.7 % (11.5-15.5); WBC 16.9 k/uL (3.8-10.6); WBC (Perox) 17.87
[2017-06-07 05:06] LABS: Magnesium 2.3 mg/dL (1.6-2.3); Phosphorous 2.9 mg/dL (2.5-4.5)
[2017-06-07] MEDS: IPRATROPIUM-ALBUTEROL 3 ML NEB INHALATION SCH ×4 (07:30→20:41)
[2017-06-07] MEDS: HEPARIN SODIUM,PORCINE 5,000 UNIT/ML 1 ML VIAL SQ SCH ×2 (07:58→16:30)
[2017-06-07] MEDS: PANTOPRAZOLE 40 MG/10 ML VIAL IVP SCH (08:01)
[2017-06-07] MEDS: PIPERACILLIN-TAZOBACTAM 3.375 GM in DEXTROSE/WATER 1 50ML.BAG IVPB SCH ×2 (08:01→16:30)
[2017-06-07] MEDS: LISINOPRIL 10 MG TAB PO SCH ×2 (08:01→14:21)
[2017-06-07] MEDS: ASPIRIN 325 MG TAB PO SCH (08:01)
[2017-06-07] MEDS: SPIRONOLACTONE 25 MG TAB PO SCH (08:02)
[2017-06-07] MEDS: PRASUGREL 10 MG TAB PO SCH (08:02)
[2017-06-07 09:47] LABS: Anion Gap 11 mmol/L; Blood Urea Nitrogen 23 mg/dL (9-20); Calcium 8.3 mg/dL (8.4-10.2); Carbon Dioxide 24 mmol/L (22-30); Chloride 106 mmol/L (98-107); Glucose 94 mg/dL (74-99); Non-African American GFR(MDRD) >60 (>60 ml/min/1.73 sqM); Potassium 4.2 mmol/L (3.5-5.1); Sodium 141 mmol/L (137-145)
--- NOTE | 2017-06-07 10:13 | P.PN ---
Subjective 41-year-old male with a previous negative medical history. 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 The patient apparently had ventricular fibrillation was defibrillated. He was resuscitated and taken directly to the catheterization laboratory where he was found have a totally occluded LAD. A stent was placed in the LAD. He came back to us on the ventilator. Since that time, we had a very hard time with him weaning. It mostly centered around the fact that he became very agitated. His mental status had not been good. Different medications were tried including propofol and dexmedetomidine. At one point, he was paralyzed for 24 hours. He was switched him from volume assist control to pressure assist control with a inspiratory pressure of 20 cm water and inspiratory time of 1 second. He seemed to do better on that so more synchronous on the ventilator. The patient's currently on rate of 22 inspiratory pressure 20 cm water inspiratory time of 1 second and FiO2 45% PEEP of 10. Blood gases on those settings showed a pO2 of 88 a pCO2 of 25 and a pH 7.61. Subsequently, the patient was given weaning trials after being checked for candidacy for wean and he was extubated on 03/06/2017 at 4 PM. His only positive culture was a sputum sample showing Streptococcus pyogenes. The patient is currently on IV Zosyn. On 05/07/2017, the patient is being seen in follow-up. As mentioned, he was extubated yesterday and his post extubation day #1. He is awake and alert. He is sitting up on a chair and following commands appropriately. No respiratory distress. No cough or sputum production. No fever chills or night sweats. He was given diet and he is able to tolerate his diet without any major difficulties to no reported dysphagia. He is on no pressors. Hemoglobin stable at 13.4. His chest x-ray from yesterday showed limited left basilar infiltrate and small better pleural effusions. No chest x-ray was done this morning. The echocardiogram that was done on 06/02/2017 showed moderately impaired LV function with an ejection fraction of 35-40%. There was no wall motion abnormalities. It was mild concentric left ventricular hypertrophy. Trace mitral regurgitation. Rest of the valves are all within normal limits. He is currently on aspirin and Effient. No bleeding. Objective - Vital Signs Vital signs: Vital Signs Temp 99.2 F 06/07/17 08:00 Pulse 92 06/07/17 09:00 Resp 11 L 06/07/17 09:00 BP 137/91 06/07/17 09:00 Pulse Ox 98 06/07/17 09:00 Intake & Output 06/06/17 06/07/17 06/07/17 18:59 06:59 18:59 Intake Total 455.0 560.0 110 Output Total 1464 660 275 Balance -1009.0 -100.0 -165 Weight 101.6 kg 99.9 kg 99.9 kg Intake: IV 320.0 290.0 110 Piperacillin-Tazobactam 3 100.0 50.0 50 .375 gm In Dextrose/Water 1 50ml.bag @ 12.5 mls/hr IVPB Q8HR [facility] Rx#: [id number] Sodium Chloride 0.9% 1, 220 240 60 000 ml @ 20 mls/hr IV . Q24H [facility] Rx#:[id number] Oral 270 Tube Feeding 135 Output: Urine 1355 660 275 Uretheral (Brown) 120 Emesis 109 Other: Voiding Method Indwelling Catheter Indwelling Catheter Indwelling Catheter # Bowel Movements 1 1 ABP, PAP, CO, CI - Last Documented Arterial Blood Pressure 138/60 - Exam The patient appeared well nourished and normally developed. Vital signs as documented. Head exam is unremarkable. No scleral icterus or corneal arcus noted. Neck is without jugular venous distension, thyromegaly, or carotid bruits. Carotid upstrokes are brisk bilaterally. Lungs are clear to auscultation and percussion. Cardiac exam reveals the PMI to be normally sized and situated. Rhythm is regular. First and second heart sounds normal. No murmurs, rubs or gallops. Abdominal exam reveals normal bowel sounds, no masses , no organomegaly and no aortic enlargement. Extremities are nonedematous and both femoral and pedal pulses are normal. - Labs CBC & Chem 7: 06/07/17 04:25 06/06/17 11:23 Labs: Abnormal Lab Results - Last 24 Hours (Table) 06/06/17 06/07/17 Range/Units 12:35 04:25 WBC 16.9 H (3.8-10.6) k/uL RBC 4.18 L (4.30-5.90) m/uL Hct 38.5 L (39.0-53.0) % Neutrophils # 13.9 H (1.3-7.7) k/uL POC Glucose (mg/dL) 110 H (75-99) mg/dL Assessment and Plan Plan: Assessment 1 acute cardiac arrest/V. fib, post successful resuscitation, emergent cardiac catheterization and stenting of LAD [address] segment elevation myocardial infarction involving LAD, status post cardiac catheterization and stenting of LAD 3 acute respiratory failure secondary to above, recovered and the patient was extubated on 06/06/2017 4 limited basilar infiltrates/small effusions with strep pyogenes in the sputum currently on IV Zosyn 5 chronic nicotine addiction/smoking 6 CHF with impaired left a ejection fraction , of 35%, no signs of overt congestion heart failure at this point 7 marijuana smoking 8 history of alcoholism 9 hypoxic encephalopathy secondary to cardiac arrest, improving. The patient is currently off sedation. Mentation is improved significantly to the point where the patient is alert and oriented 3. Plan Continue same cardiac medications. Physical therapy. Advance diet. Incentive spirometer. Brown catheter was removed. He is having some issues with insomnia. He'll be given Restoril 30 mg at bedtime. Repeat chest x-ray in the morning. Continue same cardiac medications. We'll continue to follow. This abnormal Can be pulled out and the patient can be started on a peripheral IV. He can be moved to selective telemetry unit for further recuperation. Time with Patient: Greater than 30
[2017-06-07] MEDS: MULTIVITAMINS, THERA 1 EACH TAB PO SCH (11:21)
[2017-06-07] MEDS: METOPROLOL TARTRATE 50 MG TAB PO SCH ×2 (11:21→20:33)
--- NOTE | 2017-06-07 14:20 | P.PN ---
Subjective Patient is doing well. He is alert oriented answering all questions blood pressure is normal heart rates are normal he denies any chest discomfort or undue shows of breath no dizziness lightheadedness On examination his heart rate in the 90s, blood pressure 129/88 mmHg normal respirations normal pulse ox breath sounds are reduced bilaterally but there are no rhonchi no crackles Heart sounds are normal no murmurs no gallops Abdomen is soft nontender Extremities are warm no edema Impression Out off hospital cardiac arrest anterior ST elevation OR, acute Past history of regular alcohol use and smoking Respiratory failure following the event and just recently extubated a long period of intubation, patient seems to have recovered well Ischemic cardio myopathy Plan Stop IV metoprolol start by mouth metoprolol continue johnathon inhibitors and Aldactone continue dual antiplatelet therapy and statins Maximize medications Objective - Vital Signs Vital signs: Vital Signs Temp 98.2 F 06/07/17 12:00 Pulse 88 06/07/17 14:00 Resp 18 06/07/17 14:00 BP 140/89 06/07/17 14:00 Pulse Ox 96 06/07/17 14:00 Intake & Output 06/06/17 06/07/17 06/07/17 18:59 06:59 18:59 Intake Total 455.0 560.0 190 Output Total 1464 660 395 Balance -1009.0 -100.0 -205 Weight 101.6 kg 99.9 kg 99.9 kg Intake: IV 320.0 290.0 190 Piperacillin-Tazobactam 3 100.0 50.0 50 .375 gm In Dextrose/Water 1 50ml.bag @ 12.5 mls/hr IVPB Q8HR [facility] Rx#: [id number] Sodium Chloride 0.9% 1, 220 240 140 000 ml @ 20 mls/hr IV . Q24H [facility] Rx#:[id number] Oral 270 Tube Feeding 135 Output: Urine 1355 660 395 Uretheral (Brown) 240 Emesis 109 Other: Voiding Method Indwelling Catheter Indwelling Catheter Indwelling Catheter # Voids 1 # Bowel Movements 1 1 1 ABP, PAP, CO, CI - Last Documented Arterial Blood Pressure 138/60 - Labs CBC & Chem 7: 06/07/17 04:25 06/07/17 04:25 Labs: Abnormal Lab Results - Last 24 Hours (Table) 06/07/17 06/07/17 Range/Units 04:25 04:25 WBC 16.9 H (3.8-10.6) k/uL RBC 4.18 L (4.30-5.90) m/uL Hct 38.5 L (39.0-53.0) % Neutrophils # 13.9 H (1.3-7.7) k/uL BUN 23 H (9-20) mg/dL Calcium 8.3 L (8.4-10.2) mg/dL
[2017-06-07 14:44] LABS: Appearance,Urine Clear (Clear); Bacteria,Urine Rare /hpf; Bilirubin,Urine Negative (Negative); Glucose,Urine (UA) Negative (Negative); Ketones,Urine 1+ (Negative); Leukocyte Esterase,Urine Small (Negative); Nitrite,Urine Negative (Negative); Particle Count 2657; Protein,Urine 1+ (Negative); RBC,Urine >182 /hpf (0-5); Specific Gravity,Urine 1.026 (1.001-1.035); Squamous Epithelial Cell,Urine 2 /hpf (0-4); UA Billing (MACRO vs. MICRO) MICRO; WBC,Urine 19 /hpf (0-5)
--- NOTE | 2017-06-07 15:14 | P.PN ---
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 EMS was notified and he was found to be in ventricular fibrillation without a pulse. He had defibrillation 2 with return of spontaneous circulation. It is unclear exactly how long his down time was but it appears to be less than 10-15 minutes. Initial EKG showed ST segment elevation. He was brought to the ER and a code STEMI was called. He was taken to the [facility] and had a drug- eluting stent placed to the LAD is a had 100% occlusion. He was admitted to ICU and was intubated. He was found to have an elevated total cholesterol level , elevated liver enzymes, elevated creatinine. Critical care with consult for ventilator management. He was also noted to have a history of alcohol use. On the morning of 06/01 his sedation was held and he was awake and followed commands for me. He became increasingly agitated and they had to be placed on sedation. His oxygen requirement elevated. He was also started on a Nimbex drip. His blood pressure remained controlled. He was seen by neurology and had an EEG done which showed diffuse slowing, head CT was negative, neurology will continue to follow. Unable to wean due to developing PNA and ARDS. His ventilator support was able to be weaned down by 06/05 with transition to pressure control. Vomiting with his tube feeds and nasogastric tube on 06/04, KUB was done which was negative, this resolved spontaneously. He continued to struggle with agitation. He was successfully extubated on 06/06. Patient seen and examined at bedside with present. He is feeling better today. Still complains of some anxiety. No nausea. No vomiting. No chest pain. He was significantly weak when getting up to sit in chair. Objective - Vital Signs Vital signs: Vital Signs Temp 99.2 F 06/07/17 08:00 Pulse 92 06/07/17 09:00 Resp 11 L 06/07/17 09:00 BP 137/91 06/07/17 09:00 Pulse Ox 98 06/07/17 09:00 Intake & Output 06/06/17 06/07/17 06/07/17 18:59 06:59 18:59 Intake Total 455.0 560.0 110 Output Total 1464 660 155 Balance -1009.0 -100.0 -45 Weight 101.6 kg 99.9 kg Intake: IV 320.0 290.0 110 Piperacillin-Tazobactam 3 100.0 50.0 50 .375 gm In Dextrose/Water 1 50ml.bag @ 12.5 mls/hr IVPB Q8HR [facility] Rx#: [id number] Sodium Chloride 0.9% 1, 220 240 60 000 ml @ 20 mls/hr IV . Q24H [facility] Rx#:[id number] Oral 270 Tube Feeding 135 Output: Urine 1355 660 155 Emesis 109 Other: Voiding Method Indwelling Catheter Indwelling Catheter Indwelling Catheter # Bowel Movements 1 1 ABP, PAP, CO, CI - Last Documented Arterial Blood Pressure 138/60 - Exam General: non toxic, mild distress, appears at stated age, normal weight Derm: no rashes, no lesions, no scaling, warm, not diaphoretic Head: atraumatic, normocephalic, symmetric Eyes: EOMI, no lid lag, anicteric sclera, PERRL Mouth: no lip lesion, mucus membranes moist Cardiovascular: S1S2 reg, no murmur, positive posterior tibial pulse bilateral, no edema Lungs: course bs, no rhonchi, no rales , no accessory muscle use Abdominal: soft, nontender to palpation, no guarding, no appreciable organomegaly Ext: no gross muscle atrophy, no edema, no contractures Neuro: Cranial nerves II through XII grossly intact, moving all 4 extremities independently Psych: Awake, oriented, anxious - Labs CBC & Chem 7: 06/07/17 04:25 06/07/17 04:25 Labs: Abnormal Lab Results - Last 24 Hours (Table) 06/06/17 06/07/17 Range/Units 12:35 04:25 WBC 16.9 H (3.8-10.6) k/uL RBC 4.18 L (4.30-5.90) m/uL Hct 38.5 L (39.0-53.0) % Neutrophils # 13.9 H (1.3-7.7) k/uL POC Glucose (mg/dL) 110 H (75-99) mg/dL Assessment and Plan (1) STEMI (ST elevation myocardial infarction) Narrative/Plan: ASA, effient, lipitor, metoprolol cardio recs, echo with cardiomyopathy prn nitro Status: Acute (2) Acute respiratory failure Narrative/Plan: Successfully extubated on June 06 Status: Acute (3) Dyslipidemia Narrative/Plan: statin therapy Status: Acute (4) Alcohol abuse Narrative/Plan: Will attempt to avoid Ativan if possible with possible anoxic encephalopathy. Thiamine supplementation, follow Mg and Phos Status: Acute (5) Nicotine addiction Narrative/Plan: cessation. Status: Acute (6) Ischemic cardiomyopathy Narrative/Plan: EF 35-40%, due to STEMI and cardiac arrest, ASA, lipitor, lopressor. cardiology recommendations appreciated Status: Acute (7) Pneumonia Narrative/Plan: strep pyogenous, Zosyn D#6, follow chest x-ray till clear, bronchodilators, critical care recommendations appreciated Status: Acute (8) Anoxic encephalopathy Narrative/Plan: improved, neuro recs Status: Acute Plan: Resolved: Transamitis MOHSEN cardio pulmonary arrest Elevated CK Ventricular fib ARDS Transfer to [facility] care Surrogate decision-maker Nasrin [phone] DVT prophylaxis: heparin sc Discused with: nursing, Anticipated discharge: 48- [address]: home A total of 35 minutes was spent on the care of this complex patient more than 50 % of the time was spent in counseling and care coordination.
[2017-06-07] MEDS ORDERED: TEMAZEPAM 30 MG CAP PO PRN (19:37)
[2017-06-07] MEDS: ATORVASTATIN 80 MG TAB OG-TUBE SCH (20:33)
[2017-06-08] MEDS: HEPARIN SODIUM,PORCINE 5,000 UNIT/ML 1 ML VIAL SQ SCH ×4 (00:20→23:54)
[2017-06-08] MEDS: PIPERACILLIN-TAZOBACTAM 3.375 GM in DEXTROSE/WATER 1 50ML.BAG IVPB SCH ×4 (00:35→23:53)
[2017-06-08 05:06] LABS: Magnesium 2.2 mg/dL (1.6-2.3); Phosphorous 3.4 mg/dL (2.5-4.5)
[2017-06-08 05:40] LABS: CHCM 34.9; HDW 3.12; HGB 14.3 gm/dL (13.0-17.5); MCH 31.3 pg (25.0-35.0); MCHC 34.1 g/dL (31.0-37.0); MCV 91.9 fL (80.0-100.0); Mean Platelet Volume 7.1; RBC 4.57 m/uL (4.30-5.90); RDW 13.5 % (11.5-15.5); WBC 14.9 k/uL (3.8-10.6); WBC (Perox) 15.53
[2017-06-08 06:47] LABS: Anion Gap 10 mmol/L; Blood Urea Nitrogen 23 mg/dL (9-20); Calcium 8.9 mg/dL (8.4-10.2); Carbon Dioxide 24 mmol/L (22-30); Chloride 106 mmol/L (98-107); Glucose 99 mg/dL (74-99); Non-African American GFR(MDRD) >60 (>60 ml/min/1.73 sqM); Sodium 140 mmol/L (137-145)
[2017-06-08] MEDS: PANTOPRAZOLE 40 MG TABLET PO SCH (07:42)
[2017-06-08] MEDS: SODIUM CHLORIDE 0.9% 1,000 ML IV SCH (07:42)
[2017-06-08] MEDS: ASPIRIN 325 MG TAB PO SCH (07:48)
[2017-06-08 07:50] LABS: Add Differential Manual Differential
[2017-06-08] MEDS: PRASUGREL 10 MG TAB PO SCH (07:51)
[2017-06-08] MEDS: METOPROLOL TARTRATE 50 MG TAB PO SCH ×2 (07:51→21:47)
[2017-06-08 07:52] LABS: Manual Review Performed; Nucleated Red Blood Cells 0 /100 WBC (0-0); Total Cells Counted 100
[2017-06-08] MEDS: IPRATROPIUM-ALBUTEROL 3 ML NEB INHALATION SCH ×4 (07:54→19:54)
[2017-06-08] MEDS: SPIRONOLACTONE 25 MG TAB PO SCH (07:56)
[2017-06-08] MEDS: LISINOPRIL 10 MG TAB PO SCH (12:01)
[2017-06-08] MEDS: MULTIVITAMINS, THERA 1 EACH TAB PO SCH (12:01)
--- NOTE | 2017-06-08 12:14 | P.PN ---
Subjective This is a 41-year-old male who has no major medical history. He apparently had a cardiopulmonary arrest while worsening over the hospital. The patient apparently had ventricular fibrillation was defibrillated. 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 Catheterization revealed a totally occluded LAD and he had a stent placed. He is currently here on the ventilator. We tried weaning him this morning. We stopped his propofol. He became very agitated. The patient is currently still on the ventilator. We had to sedate him further with Precedex or dexmedetomidine and also give him a paralytic agent Nimbex. Currently the patient's on the ventilator. He's on the assist control mode at 20, Byam for 50 FiO2 up to 100% PEEP increased to 10. We'll titrate the FiO2 down. Blood gases showed a pO2 of 116 a pCO2 35 and a pH 7.46. This is consistent with hyperoxemia and a mild respiratory alkalosis. The patient's on Precedex currently appointment for mics. The propofol will be turned off. He is getting 9 IV at 75 mL an hour. Amiodarone is been turned off. We'll get some tube feeds started. The patient is seen again today 06/02/2017 in follow-up in the intensive care unit. He remains intubated and on the mechanical ventilator. Current settings are assist control of 20, tidal volume 450, FiO2 70% and a PEEP of 10. Morning blood gases reveal a P O2 of 80, pCO2 of 62 and a pH of 7.25. He remains on Nimbex at 2 mcg/kg/m, Precedex at 0.7 mcg/kg/m, propofol at 50 mcg/kg/m. He has a 0.9 normal saline at 75 mL per hour. He is being nourished with 2 Alejandro HN at 35 mL per hour with a goal of 45 mL per hour. His computed tomography scan of the head was negative for acute abnormalities. EEG did reveal slowing. He was seen by neurology. His prognosis is quite guarded at this point with concerns regarding suspected anoxic brain injury. His pF ratio is 114 and there is also concern of possible development of ARDS with concerns for possible aspiration. His chest x-ray reveals persistent left-sided infiltrate. Sputum culture is pending. Remains on bronchodilators every 4 hours. There is some mild central venous congestion as well. His echocardiogram did reveal moderately impaired left ventricular systolic function with an ejection fraction between 35 and 40%. The patient is seen again today 06/03/2017 in follow-up in the intensive care unit. He remains intubated and on the mechanical ventilator. His current settings are assist control of 26, tidal volume 450, FiO2 of 50% and a PEEP of 13. Initial blood gases revealed a PaO2 of 61, pCO2 of 40 and a pH of 7.44. His FiO2 was increased to 60% and a follow-up blood gas on the 60% and a pO2 had improved to 93, pCO2 of 37 and a pH of 7.46. He remains on 0.9 normal saline at 75 MLS per hour, propofol at 75 mcg/kg/m. He is being nourished with 2 Alejandro HN tube feedings at 35 mL per hour which is his goal. His chest x-ray continues to show a right lower lobe consolidation and some atelectasis in the left lung base. Sputum so far showing strep pyogenes. He does have a temp of 99.5 axillary, no tachycardia and the white count 13. The patient is seen again today 06/04/2017 in follow-up in the intensive care unit. He remains intubated and on the mechanical ventilator. Current vent settings are assist-control 26, tidal volume 450 FiO2 80% previous to that he was on 50% FiO2 with blood gases revealing a pO2 of 71, pCO2 of 38 and a PEEP H of 7.47. He had a episode of desaturations he had increased secretions and he also had emesis around the NG tube. It took some time to get his saturations back up he was on 100% for a while. He remains on 0.9 normal saline at 75 MLS per hour. Propofol at 75 mcg/kg/m. His tube feeds are Vital HP at 45 MLS per hour which is his goal. Tube feeds are currently on hold due to the emesis. A flat plate of the abdomen was performed. His chest x-ray continues to show increasing basilar infiltrates and effusions. Sputum culture shows strep pyogenes. He remains on Zosyn for now. He does have a temp of 100.3. White count 10.2. Patient is seen again today 06/05/2017 in follow-up in the intensive care unit. He remains intubated and on the mechanical ventilator. Current vent settings are assist-control rate of 26 on tidal volume 450, FiO2 40% and a PEEP of 10. His blood gas revealed a PaO2 of 77, pCO2 41 and a pH of 7.47. He was given another daily interruption of sedation and the patient continues to have no purposeful movements. He does not follow simple commands. He is not making good eye contact. It does take a while to re sedate the patient and he also has desaturations that also takes a while to recover. He remains on propofol at 75 mcg/kg/m, 0.9 normal saline at 25 mL per hour and he is being nourished with Yaya HP at 45 mL per hour which is goal. His chest x-ray just shows some mild atelectatic changes in the bases. His CVP is running between 15 and 18. No significant leukocytosis. Currently afebrile. Strep pyogenes final sensitivity is still pending. Maintained on Zosyn. On 06/07/2017, the patient is being seen in follow-up. As mentioned, he was extubated yesterday and his post extubation day #1. He is awake and alert. He is sitting up on a chair and following commands appropriately. No respiratory distress. No cough or sputum production. No fever chills or night sweats. He was given diet and he is able to tolerate his diet without any major difficulties to no reported dysphagia. He is on no pressors. Hemoglobin stable at 13.4. His chest x-ray from yesterday showed limited left basilar infiltrate and small better pleural effusions. No chest x-ray was done this morning. The echocardiogram that was done on 06/02/2017 showed moderately impaired LV function with an ejection fraction of 35-40%. There was no wall motion abnormalities. It was mild concentric left ventricular hypertrophy. Trace mitral regurgitation. Rest of the valves are all within normal limits. He is currently on aspirin and Effient. No bleeding. The patient seen again today 06/08/2017 in follow-up on the selective care unit. He is awake and alert in no acute distress. He is working with physical therapy and has been up ambulating in the hallway with a walker and assistance. He denies any worsening shortness of breath, cough or congestion. He is maintaining good O2 saturations in the mid to upper 90s on room air. He's been afebrile. Hemodynamically stable. No chest discomfort. Objective - Vital Signs Vital signs: Vital Signs Temp 98.7 F 06/07/17 20:00 Pulse 85 06/08/17 12:00 Resp 16 06/08/17 12:00 BP 125/86 06/08/17 12:00 Pulse Ox 97 06/08/17 12:00 Intake & Output 06/07/17 06/08/17 06/08/17 18:59 06:59 18:59 Intake Total 290 57.5 Output Total 1348 2 Balance -1058 57.5 -2 Weight 99.9 kg 96.2 kg Intake: IV 290 57.5 Piperacillin-Tazobactam 3 50 37.5 .375 gm In Dextrose/Water 1 50ml.bag @ 12.5 mls/hr IVPB Q8HR [facility] Rx#: [id number] Sodium Chloride 0.9% 1, 240 20 000 ml @ 20 mls/hr IV . Q24H [facility] Rx#:[id number] Output: Urine 1345 Uretheral (Brown) 240 Stool 3 2 Other: Voiding Method Indwelling Catheter Indwelling Catheter # Voids 1 1 1 # Bowel Movements 2 1 1 ABP, PAP, CO, CI - Last Documented Arterial Blood Pressure 138/60 - Exam The patient appeared well nourished and normally developed. Vital signs as documented. Head exam is unremarkable. No scleral icterus or corneal arcus noted. Neck is without jugular venous distension, thyromegaly, or carotid bruits. Carotid upstrokes are brisk bilaterally. Lungs are clear to auscultation and percussion. Cardiac exam reveals the PMI to be normally sized and situated. Rhythm is regular. First and second heart sounds normal. No murmurs, rubs or gallops. Abdominal exam reveals normal bowel sounds, no masses , no organomegaly and no aortic enlargement. Extremities are nonedematous and both femoral and pedal pulses are normal. - Labs CBC & Chem 7: 06/08/17 04:31 06/08/17 04:31 Labs: Abnormal Lab Results - Last 24 Hours (Table) 06/07/17 06/08/17 06/08/17 Range/Units 14:20 04:31 04:31 WBC 14.9 H (3.8-10.6) k/uL Neutrophils # (Manual) 9.98 H (1.3-7.7) k/uL Monocytes # (Manual) 1.34 H (0-1.0) k/uL BUN 23 H (9-20) mg/dL Urine Protein 1+ H (Negative) Urine Ketones 1+ H (Negative) Urine Blood Large H (Negative) Ur Leukocyte Esterase Small H (Negative) Urine RBC >182 H (0-5) /hpf Urine WBC 19 H (0-5) /hpf Urine Bacteria Rare H (None) /hpf Assessment and Plan Plan: Impression: #1 Cardiopulmonary arrest secondary to ST segment elevation myocardial infarction with ventricular fibrillation. Status post stenting to the proximal LAD. #2 Acute hypoxic respiratory failure requiring intubation mechanical ventilation secondary to above and with the development of suspected ARDS and right lower lobe consolidation secondary to suspected aspiration pneumonia. Chest x-rays improved. The patient was successfully extubated 2 days ago and currently on room air. #3 Acute systolic congestive heart failure with estimated ejection fraction 35- 40%. #4 Acute anoxic brain injury based on slowing of the EEG and difficulty weaning. #5 Chronic and ongoing tobacco dependence. #6 Daily alcohol use. Plan: The patient was seen and evaluated by Dr. Merino. We'll continue with his current medications. He is working well with physical therapy. We've again encourage increased use of the incentive spirometer and cough and deep breathing exercises. He is educated regarding the importance of complete smoking cessation. We will increase his activity as tolerated. We'll continue to follow.
--- NOTE | 2017-06-08 12:54 | P.PN ---
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 EMS was notified and he was found to be in ventricular fibrillation without a pulse. He had defibrillation 2 with return of spontaneous circulation. It is unclear exactly how long his down time was but it appears to be less than 10-15 minutes. Initial EKG showed ST segment elevation. He was brought to the ER and a code STEMI was called. He was taken to the qc lab technician and had a drug- eluting stent placed to the LAD is a had 100% occlusion. He was admitted to ICU and was intubated. He was found to have an elevated total cholesterol level , elevated liver enzymes, elevated creatinine. Critical care with consult for ventilator management. He was also noted to have a history of alcohol use. On the morning of 06/01 his sedation was held and he was awake and followed commands for me. He became increasingly agitated and they had to be placed on sedation. His oxygen requirement elevated. He was also started on a Nimbex drip. His blood pressure remained controlled. He was seen by neurology and had an EEG done which showed diffuse slowing, head CT was negative, neurology will continue to follow. Unable to wean due to developing PNA and ARDS. His ventilator support was able to be weaned down by 06/05 with transition to pressure control. Vomiting with his tube feeds and nasogastric tube on 06/04, KUB was done which was negative, this resolved spontaneously. He continued to struggle with agitation. He was successfully extubated on 06/06. He had a quick increase in strength and worked with physical therapy. He developed a leukocytosis but CXR was improving, no clinical signs of infection and UA was negative for infection. Patient seen and examined at bedside with present. He feels good. Was up and ambualting in the halls and bathroom. No chest pain, SOB, or nausea. Objective - Vital Signs Vital signs: Vital Signs Temp 98.7 F 06/07/17 20:00 Pulse 85 06/08/17 12:00 Resp 16 06/08/17 12:00 BP 125/86 06/08/17 12:00 Pulse Ox 97 06/08/17 12:00 Intake & Output 06/07/17 06/08/17 06/08/17 18:59 06:59 18:59 Intake Total 290 57.5 Output Total 1348 2 Balance -1058 57.5 -2 Weight 99.9 kg 96.2 kg Intake: IV 290 57.5 Piperacillin-Tazobactam 3 50 37.5 .375 gm In Dextrose/Water 1 50ml.bag @ 12.5 mls/hr IVPB Q8HR [facility] Rx#: [id number] Sodium Chloride 0.9% 1, 240 20 000 ml @ 20 mls/hr IV . Q24H [facility] Rx#:[id number] Output: Urine 1345 Uretheral (Brown) 240 Stool 3 2 Other: Voiding Method Indwelling Catheter Indwelling Catheter # Voids 1 1 1 # Bowel Movements 2 1 1 ABP, PAP, CO, CI - Last Documented Arterial Blood Pressure 138/60 - Exam General: non toxic, mild distress, appears at stated age, normal weight Derm: no rashes, no lesions, no scaling, warm, not diaphoretic Head: atraumatic, normocephalic, symmetric Eyes: EOMI, no lid lag, anicteric sclera, PERRL Mouth: no lip lesion, mucus membranes moist Cardiovascular: S1S2 reg, no murmur, positive posterior tibial pulse bilateral, 1+ edema Lungs: course bs, no rhonchi, no rales , no accessory muscle use Abdominal: soft, nontender to palpation, no guarding, no appreciable organomegaly Ext: no gross muscle atrophy, no edema, no contractures Neuro: Cranial nerves II through XII grossly intact, moving all 4 extremities independently Psych: Awake, oriented, appropriate affect - Labs CBC & Chem 7: 06/08/17 04:31 06/08/17 04:31 Labs: Abnormal Lab Results - Last 24 Hours (Table) 06/07/17 06/08/17 06/08/17 Range/Units 14:20 04:31 04:31 WBC 14.9 H (3.8-10.6) k/uL Neutrophils # (Manual) 9.98 H (1.3-7.7) k/uL Monocytes # (Manual) 1.34 H (0-1.0) k/uL BUN 23 H (9-20) mg/dL Urine Protein 1+ H (Negative) Urine Ketones 1+ H (Negative) Urine Blood Large H (Negative) Ur Leukocyte Esterase Small H (Negative) Urine RBC >182 H (0-5) /hpf Urine WBC 19 H (0-5) /hpf Urine Bacteria Rare H (None) /hpf Assessment and Plan (1) STEMI (ST elevation myocardial infarction) Narrative/Plan: ASA, effient, lipitor, metoprolol cardio recs, echo with cardiomyopathy prn nitro Status: Acute (2) Dyslipidemia Narrative/Plan: statin therapy Status: Acute (3) Alcohol abuse Narrative/Plan: cessation, completed thiamine therapy. No signs of withdrawal Status: Acute (4) Nicotine addiction Narrative/Plan: cessation. Status: Acute (5) Ischemic cardiomyopathy Narrative/Plan: EF 35-40%, due to STEMI and cardiac arrest, ASA, lipitor, lopressor. cardiology recommendations appreciated, repeat echo in 3 months. Status: Acute (6) Pneumonia Narrative/Plan: strep pyogenous, Zosyn D#7, CXR in AM if infiltrate improved then D/C zosyn if perisistent then treat PNA for 10 days. bronchodilators, critical care recommendations appreciated Status: Acute Plan: Resolved: Transamitis MOHSEN cardio pulmonary arrest Elevated CK Ventricular fib ARDS Toxic metabolic encephalopathy - anoxic encephalopathy ruled out. Acute hypoxic respiratory failure Transfer [facility] Surrogate decision-maker Nasrin [phone] DVT prophylaxis: heparin sc Discused with: nursing, Anticipated discharge: 24-[address]: home with home A total of 35 minutes was spent on the care of this complex patient more than 50 % of the time was spent in counseling and care coordination.
--- NOTE | 2017-06-08 16:48 | P.CONS ---
History of Present Illness - Chief Complaint Gait disturbance - History of Present Illness I had To see patient for inpatient rehab consultation with regard to gait disturbance. He was admitted to [facility] May 31 status post arrest. Found to have a non-STEMI in V. fib. Seen by Dr. Crenshaw for ICU care and ventilator. Seen by Dr. Lanette Mg who notes anoxic encephalopathy. Seen by Dr. White who placed trach and PEG tube. Chest x-rays followed for left basilar infiltrate and bilateral pleural effusions. Head CT demonstrated only paranasal disease. PT reports moderate assistance functional debility and fatigues. OT reports supervision for upper dressing but minimal for lower dressing, bathing, toileting, functional mobility and transfers. I have added speech therapy at This time. Previous functional history as elicited from patient and : 41-year-old right -handed white male who is lives in one form with and 3 kids. 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 Previously independent indeed. Was a 2 pack a day smoker and did drink alcohol all up to daily. Regular doctor is now a Dr. Michaela Arenas. Family history of cardiac disease in father, of [place]. Review of Systems Review of systems: ENT: Denies sneezes or discharge. Eyes: Denies discharge or photophobia. Cardiac: Denies chest pain or palpitation. Pulmonary: Denies cough or shortness of breath. Gastrointestinal: Denies nausea, emesis, constipation, diarrhea. Genitourinary: Denies discharge or frequency. Musculoskeletal: Denies muscle or bone aches. Neurologic: Denies motor or sensory change. Endocrine: Denies shakes or sweats. Oncology: Denies cancers. Dermatologic: Denies rash, itching, pruritus. ALLERGY/immunology: Denies sneezes, rashes. Past Medical History Past Medical History: Coronary Artery Disease (CAD), Myocardial Infarction ([place]) Additional Past Medical History / Comment(s): Cardiopulmonary arrest outside hospital 05/31/17 - ventricular fibrillation, shocked X2 and intubated by EMS, stent placed to his LAD. Last Myocardial Infarction Date:: 05/31/17 History of Any Multi-Drug Resistant Organisms: None Reported Past Surgical History: Heart Catheterization With Stent Additional Past Surgical History / Comment(s): Anal wart removal 10 years ago; right hand surgery apx. 1987 Past Anesthesia/Blood Transfusion Reactions: No Reported Reaction Date of Last Stent Placement:: 05/31/17 to his left anterior descending coronary artery. Smoking Status: Current every day smoker - Past Family History Father Family Medical History: Coronary Artery Disease (CAD), Myocardial Infarction ([place] ) Additional Family Medical History / Comment(s): Uncle with "thickening of heart muscle"; idiopathic hypertrophic subaortic stenosis; dad at age 53 from a heart attack Mother Family Medical History: No Reported History Medications and Allergies Home Medications Medication Instructions Recorded Confirmed Type Aspirin 162 mg PO ONCE 05/31/17 05/31/17 History Allergies Allergy/AdvReac Type Severity Reaction Status Date / Time No Known Allergies Allergy Verified 05/31/17 18:33 Physical Exam Vitals: Vital Signs Temp Pulse Pulse Resp BP BP Pulse Ox 06/08/17 12:00 85 16 125/86 97 06/08/17 08:30 97 16 127/88 95 06/08/17 08:00 109 H 15 137/90 95 06/08/17 06:00 90 10 L 134/102 06/08/17 04:00 93 16 131/102 06/08/17 02:00 92 14 134/81 06/08/17 00:12 88 34 H 06/07/17 22:38 89 15 132/92 95 06/07/17 22:00 83 17 124/82 06/07/17 20:00 98.7 F 90 11 L 133/76 06/07/17 19:00 90 17 147/78 95 06/07/17 18:00 95 10 L 140/92 96 06/07/17 17:00 89 16 140/96 96 Intake and Output 06/08/17 06/08/17 06/08/17 06:59 14:59 22:59 Intake Total 12.5 Output Total 2 Balance 12.5 -2 Intake: IV 12.5 Piperacillin-Tazobactam 3 12.5 .375 gm In Dextrose/Water 1 50ml.bag @ 12.5 mls/hr IVPB Q8HR [facility] Rx#: [id number] Output: Stool 2 Other: Voiding Method Indwelling Catheter # Voids 1 1 # Bowel Movements 1 1 Weight 96.2 kg Skin: Good color, texture, turgor. General: Medium build and comfortable appearance. Head: Normocephalic, atraumatic. Eyes: Symmetric. Pupils equal round. Ears: Symmetric. Hearing within normal limits. Mouth: Clear. Neck: Supple. Carotid without bruit. Cardiac: Regular rate and rhythm. Lungs: Clear anteriorly and posteriorly. Abdomen: Soft active nontender. Extremities: Normal tone. Neurological: Mental status: Alert, cooperative, pleasant. Cranial nerves: Symmetric facial tone and trapezius. Motor: Normal strength and isolation all 4 limbs. Sensation: Intact throughout. DTRs: Symmetric and equal throughout. Mobility: Sits and stands with minimal assistance. States going to the bathroom but it definitely requires hands-on for safety and minimal assistance. In fact PT reports moderate assistance for gait safety. Results CBC & Chem 7: 06/08/17 04:31 06/08/17 04:31 Labs: Abnormal Lab Results - Last 24 Hours (Table) 06/08/17 06/08/17 Range/Units 04:31 04:31 WBC 14.9 H (3.8-10.6) k/uL Neutrophils # (Manual) 9.98 H (1.3-7.7) k/uL Monocytes # (Manual) 1.34 H (0-1.0) k/uL BUN 23 H (9-20) mg/dL Chest x-ray: report reviewed (Chest x-rays followed for left basilar infiltrate and bilateral pleural effusions.) CT Scan - head: report reviewed (Paranasal disease only.) Assessment and Plan (1) Anoxic encephalopathy Status: Acute Plan: Impression: 1. Gait disturbance. 2. Anoxic encephalopathy. 3. Cardiac arrest with history of non-STEMI and V. fib. 4 pulmonary arrest requiring ventilator support. Comments and plan: At this time PT and OT are ongoing. Safety concerns are noted. I have added speech therapy but to perceive some cognitive safety issues. At this time, inpatient rehabilitation appears to be reasonable treatment. Noted patient has had brain event and has significant cognitive issues and is very young. Would benefit from a full inpatient rehab program as opposed to shelter facility. Unfortunately, this is a [employer] patient. I have had the opportunity to discuss inpatient rehabilitation with of [employer] who performs as insurance reviewer for possible rehab admissions. I have been made aware that there is a process. First step, An or another sequencing machine operator we'll review patient's case to thoroughly review for medical necessity requirement for inpatient rehabilitation. If medical necessity is achieved, Dr. yan Will review patient's case for therapy benefit. Note that Dr. yan will determine that if a patient that can tolerate and benefit from a 3 hour therapy program, that patient can of course benefit from a 1 or 2 hour program and thus will likely deny inpatient rehabilitation. It can then go to Peer review where I believe it is likely that I will be educated by an sequencing machine operator on medical necessity and/or the 2 versus 3 hour dilemma. Next , patient and/or family can apply for medical appeal through [employer] appeals process. Patient and family should be made aware that this is a necessary step per . Dr. yan reports that appeals have not been filed in the past and feels that this reinforces his current practice and policies as correct and appropriate.
[2017-06-08] MEDS: ATORVASTATIN 80 MG TAB OG-TUBE SCH (21:47)
--- NOTE | 2017-06-09 01:02 | P.PN ---
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 When EMS arrived at the job site the patient was in ventricular fibrillation without a pulse. He was defibrillated 2 and was transported to the emergency room where he was intubated. He was then taken to the cardiac [employer]er as his EKG did reveal ST segment elevation. He had a drug-eluting stent placed in the LAD which had 100% occlusion. He was then stabilized and then transferred to the intensive care unit for further management. The patient remains intubated on the ventilator. He remains on a Diprivan drip. Apparently when they have attempted to wean him he becomes very agitated and combative. He did undergo a routine EEG on admission which was negative for any acute changes. He underwent a routine EEG initially which did reveal diffuse slowing. We are recommending a follow-up EEG to be done tomorrow morning for comparison and long -term prognosis. The patient does respond to painful stimuli only minimally. Cardiology continues to follow him closely as well. He is status post recent anterior wall PA. He is showing very slow recovery in terms of his neurological status. For this reason we have recommended a follow-up EEG to be done today for comparison to his previous study. His has been updated on his overall poor neurological status at this time. She is aware that his prognosis remains very guarded. He will need daily assessment of his overall neurological status to see if he is making improvement. Patient does seem to be slightly improved in terms of his responsiveness. As noted his EEG did show slight worsening as compared to his initial EEG. This was discussed at length with the patient's at bedside. Clinically however he is showing improvement in his overall mental status. We will need to wait to see if this patient can be weaned off of the ventilator. He does seem to be more alert and may benefit from extubation. We will await further recommendations from pulmonary medicine. According to his today in the ICU he did show some changes this morning with the increase in agitation. Apparently he was biting on his ET tube. A special bite device was placed and this is making him slightly more agitated. According to the ICU nurse was concerned the patient may be showing signs of posturing. He was sent for a stat computed tomography scan of the brain earlier today which came back negative for any evidence of acute hemorrhage or stroke. There was no evidence of any cerebral edema. We will continue close neurological follow-up with this patient in the intensive care unit. The patient was extubated late Wednesday afternoon. His mental status has shown significant improvement since extubation. We will continue close neurological follow-up of this patient on the medical floor. Case was discussed this evening with the patient and his at bedside. The patient states that he continues to show improvement in his overall strength and was able to walk with the use of a walker today in the hallway without much difficulty. She has noted towards the end of the day he become slightly confused. All of their questions were answered. His is very happy with his significant improvement in his overall mental status and neurological status. We will continue close neurological follow-up of this patient during this admission. His overall prognosis at this time remains very guarded. Objective - Vital Signs Vital signs: Vital Signs Temp 98.6 F 06/08/17 20:00 Pulse 88 06/08/17 20:00 Resp 16 06/08/17 20:00 BP 130/79 06/08/17 20:00 Pulse Ox 97 06/08/17 20:00 Intake & Output 06/08/17 06/08/17 06/09/17 06:59 18:59 06:59 Intake Total 57.5 240 Output Total 2 Balance 57.5 238 Weight 96.2 kg Intake: IV 57.5 Piperacillin-Tazobactam 3 37.5 .375 gm In Dextrose/Water 1 50ml.bag @ 12.5 mls/hr IVPB Q8HR JENELLE Rx#: [id number] Sodium Chloride 0.9% 1, 20 000 ml @ 20 mls/hr IV . Q24H JENELLE Rx#:[id number] Oral 240 Output: Stool 2 Other: Voiding Method Indwelling Catheter # Voids 1 1 1 # Bowel Movements 1 1 ABP, PAP, CO, CI - Last Documented Arterial Blood Pressure 138/60 - Exam Physical Examination: PHYSICAL EXAMINATION: Patient is resting comfortably in bed. VITAL SIGNS: Blood pressure is [130/79]. Heart rate is [88]. Respiration is [16] . Temperature is [98.7]. HEENT: Head is atraumatic, neck is supple, there were no carotid bruits. CHEST: Lungs are clear to auscultation and percussion. CARDIAC: S1, S2 normal rate and rhythm. There is no murmur. ABDOMEN: Soft and nontender. Bowel sounds are present. EXTREMITIES: There is no pedal edema. Peripheral pulses are present. Neurological examination: Patient is able to answer simple questions. He is alert and oriented 3. His speech is fluent with no evidence of any aphasia or dysarthria. His memory and intellectual functions are much improved. Cranial nerve examination: Cranial nerves II through XII are grossly intact. Motor examination: There was no pronator drift. Muscle tone is normal. Muscle strength testing reveals 3+/5 strength throughout. Sensory examination was intact. Deep tendon reflexes: The DTRs are 1+ and symmetric. Plantar responses flexor bilaterally. - Labs CBC & Chem 7: 06/08/17 04:31 06/08/17 04:31 Labs: Abnormal Lab Results - Last 24 Hours (Table) 06/08/17 06/08/17 Range/Units 04:31 04:31 WBC 14.9 H (3.8-10.6) k/uL Neutrophils # (Manual) 9.98 H (1.3-7.7) k/uL Monocytes # (Manual) 1.34 H (0-1.0) k/uL BUN 23 H (9-20) mg/dL Assessment and Plan (1) Anoxic encephalopathy Status: Acute Code(s): G93.1 - ANOXIC BRAIN DAMAGE, NOT ELSEWHERE CLASSIFIED (2) Cardiopulmonary arrest with successful resuscitation Status: Acute Code(s): I46.9 - CARDIAC ARREST, CAUSE UNSPECIFIED (3) STEMI (ST elevation myocardial infarction) Status: Acute Code(s): I21.3 - ST ELEVATION (STEMI) MYOCARDIAL INFARCTION OF UNSP SITE (4) Stented coronary artery Status: Acute Code(s): Z95.5 - PRESENCE OF CORONARY ANGIOPLASTY IMPLANT AND GRAFT Plan: This patient is a 41-year-old male who initially was admitted to the intensive care unit after suffering an acute cardiac arrest. 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 He underwent a stent placement and was transferred to the intensive care unit. He was intubated at that time. This afternoon he was able to be extubated off of the ventilator. He is doing much better and is now alert and able to answer simple questions. He did undergo recent follow-up computed tomography scan of the brain which failed to reveal any acute changes. Patient is now conversing and is able to answer most all questions without any difficulties. The patient and his were updated on his overall condition today at the bedside in the ICU. If he continues to do well most likely he will be able to transfer out of the ICU tomorrow. We will continue close neurological follow-up with this patient in the intensive care unit. This patient has suffered acute anoxic encephalopathy following cardiac arrest and is showing signs of significant improvement. This patient's current findings are consistent with a metabolic / hypoxic encephalopathy following cardiac arrest. He does continue to show improvement in his overall cognition. We will continue to monitor his condition closely with the other specialists. We will continue close neurological follow-up with this patient during this admission. Case was discussed at length with the patient and his . All of their questions were answered. She is aware of his still guarded condition. Hopefully he will continue to show cognitive improvement day by day. We will continue to monitor his neurological status closely during this admission.
[2017-06-09 06:18] LABS: CH 32.8; CHCM 35.5; HCT 42.6 % (39.0-53.0); HDW 3.06; HGB 14.7 gm/dL (13.0-17.5); MCH 32.1 pg (25.0-35.0); MCHC 34.4 g/dL (31.0-37.0); Mean Platelet Volume 7.3; RBC 4.58 m/uL (4.30-5.90); WBC 14.6 k/uL (3.8-10.6)
[2017-06-09] MEDS: PANTOPRAZOLE 40 MG TABLET PO SCH (06:46)
[2017-06-09] MEDS: SPIRONOLACTONE 25 MG TAB PO SCH (08:40)
[2017-06-09] MEDS: PIPERACILLIN-TAZOBACTAM 3.375 GM in DEXTROSE/WATER 1 50ML.BAG IVPB SCH ×2 (08:40→16:43)
[2017-06-09] MEDS: HEPARIN SODIUM,PORCINE 5,000 UNIT/ML 1 ML VIAL SQ SCH ×2 (08:40→16:43)
[2017-06-09] MEDS: PRASUGREL 10 MG TAB PO SCH (08:40)
[2017-06-09] MEDS: METOPROLOL TARTRATE 50 MG TAB PO SCH ×2 (08:40→22:25)
[2017-06-09] MEDS: ASPIRIN 325 MG TAB PO SCH (08:40)
[2017-06-09] MEDS: IPRATROPIUM-ALBUTEROL 3 ML NEB INHALATION SCH ×4 (09:19→19:28)
--- NOTE | 2017-06-09 12:02 | P.PN ---
Subjective Principal diagnosis: Cardiac arrest This is a 41-year-old gentleman who presented to the hospital with an acute cardiac arrest. Patient apparently had ventricular fibrillation and was defibrillated. He underwent cardiac catheterization with stenting of the LAD. Patient is currently being followed on the telemetry unit. Hemodynamically stable. Blood pressure 128/80. Heart rate in the 90s. White blood cell count 14.6, hemoglobin 14.7. Denies chest pain or difficulty in breathing. We will increase his metoprolol tartrate and Aldactone today. Have him up ambulating as much as possible in the hallway today. Scheduled for a low-level stress test tomorrow. It was explained to the patient that we will also have him placed with a LifeVest prior to discharge. Objective - Vital Signs Vital signs: Vital Signs Temp 97.8 F 06/09/17 08:00 Pulse 99 06/09/17 09:10 Resp 18 06/09/17 08:00 BP 128/89 06/09/17 09:10 Pulse Ox 100 06/09/17 09:10 Intake & Output 06/08/17 06/09/17 06/09/17 18:59 06:59 18:59 Intake Total 240 230 118 Output Total 2 2 Balance 238 228 118 Weight 94.9 kg Intake: IV 230 Piperacillin-Tazobactam 3 50 .375 gm In Dextrose/Water 1 50ml.bag @ 12.5 mls/hr IVPB Q8HR JENELLE Rx#: [id number] Sodium Chloride 0.9% 1, 180 000 ml @ 20 mls/hr IV . Q24H JENELLE Rx#:[id number] Oral 240 118 Output: Urine 2 Stool 2 Other: Voiding Method Indwelling Catheter Toilet # Voids 1 1 1 # Bowel Movements 1 ABP, PAP, CO, CI - Last Documented Arterial Blood Pressure 138/60 - Exam PHYSICAL EXAMINATION: HEENT: Head is atraumatic, normocephalic. Pupils equal, round. Neck is supple. There is no elevated jugular venous pressure. HEART EXAMINATION: Heart S1, S2 normal. No murmur or gallop heard. CHEST EXAMINATION: Lungs are clear to auscultation and precussion. No chest wall tenderness is noted on palpation or with deep breathing. ABDOMEN: Soft, nontender. Bowel sounds are heard. No organomegaly noted. EXTREMITIES: 2+ peripheral pulses with no evidence of peripheral edema and no calf tenderness noted. NEUROLOGIC patient is awake, alert and oriented -3. . - Labs CBC & Chem 7: 06/09/17 05:38 06/08/17 04:31 Labs: Abnormal Lab Results - Last 24 Hours (Table) 06/09/17 Range/Units 05:38 WBC 14.6 H (3.8-10.6) k/uL Assessment and Plan (1) Presence of stent in LAD coronary artery Status: Acute (2) Alcohol abuse Status: Acute (3) Anoxic encephalopathy Status: Acute (4) Cardiopulmonary arrest with successful resuscitation Status: Acute (5) Dyslipidemia Status: Acute (6) Ischemic cardiomyopathy Status: Acute (7) Nicotine addiction Status: Acute (8) MOHSEN (acute kidney injury) Status: Resolved (9) Ventricular fibrillation Status: Resolved Plan: From cardiology's perspective, we will have the patient up ambulating in the hallway today. Increase her metoprolol tartrate, increase Aldactone, schedule low level stress test tomorrow. Patient and the have also been educated regarding a LifeVest which will be placed prior to his discharge. We will plan on possible discharge home in the next 24-48 hours. DNP note has been reviewed, I agree with a documented findings and plan of care. Patient was seen and examined.
[2017-06-09] MEDS: MULTIVITAMINS, THERA 1 EACH TAB PO SCH (12:17)
[2017-06-09] MEDS: LISINOPRIL 10 MG TAB PO SCH (12:17)
--- NOTE | 2017-06-09 12:40 | P.PN ---
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 EMS was notified and he was found to be in ventricular fibrillation without a pulse. He had defibrillation 2 with return of spontaneous circulation. It is unclear exactly how long his down time was but it appears to be less than 10-15 minutes. Initial EKG showed ST segment elevation. He was brought to the ER and a code STEMI was called. 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 He was admitted to ICU and was intubated. He was found to have an elevated total cholesterol level , elevated liver enzymes, elevated creatinine. Critical care was consulted for ventilator management. He was also noted to have a history of alcohol use. On the morning of 06/01 his sedation was held and he was awake and followed commands for me. He became increasingly agitated and then had to be placed on sedation. His oxygen requirement elevated. He was also started on a Nimbex drip. His blood pressure remained controlled. He was seen by neurology and had an EEG done which showed diffuse slowing, head CT was negative, neurology will continue to follow. There were unable to wean due to developing PNA and ARDS. His ventilator support was able to be weaned down by 06/05 with transition to pressure control. He had vomiting with his tube feeds and nasogastric tube on 06/04, KUB was done which was negative, this resolved spontaneously. He continued to struggle with agitation and possible component of ETOH withdrawal or anoxic encephalopathy. His mentation improved and he was successfully extubated on 06/06. He had a quick increase in strength and worked with physical therapy. He developed a leukocytosis but CXR was improving, no clinical signs of infection and UA was negative for infection. He was evaluated by inpatient rehabilitation who is recommending possible inpatient rehabilitation. Cardiology has increased his metoprolol and Aldactone. They plan on low-level stress test this admission and life vest placement prior to discharge. Neurology evaluated the patient post extubation and felt likely due to metabolic encephalopathy and not anoxic encephalopathy. Patient seen and examined at bedside with present. He denies any headache , confusion, difficulty with concentration, lightheadedness, dizziness, or chest pain. He has been up and ambulating in the hallways. He had a bowel movement already this morning. He has been tolerating his diet well. He is still struggling with sleep. Objective - Vital Signs Vital signs: Vital Signs Temp 97.8 F 06/09/17 08:00 Pulse 99 06/09/17 09:10 Resp 18 06/09/17 08:00 BP 128/89 06/09/17 09:10 Pulse Ox 100 06/09/17 09:10 Intake & Output 06/08/17 06/09/17 06/09/17 18:59 06:59 18:59 Intake Total 240 230 118 Output Total 2 2 Balance 238 228 118 Weight 94.9 kg Intake: IV 230 Piperacillin-Tazobactam 3 50 .375 gm In Dextrose/Water 1 50ml.bag @ 12.5 mls/hr IVPB Q8HR JENELLE Rx#: [id number] Sodium Chloride 0.9% 1, 180 000 ml @ 20 mls/hr IV . Q24H JENELLE Rx#:[id number] Oral 240 118 Output: Urine 2 Stool 2 Other: Voiding Method Indwelling Catheter Toilet # Voids 1 1 1 # Bowel Movements 1 ABP, PAP, CO, CI - Last Documented Arterial Blood Pressure 138/60 - Exam General: non toxic, mild distress, appears at stated age, normal weight Derm: no rashes, no lesions, no scaling, warm, not diaphoretic Head: atraumatic, normocephalic, symmetric Eyes: EOMI, no lid lag, anicteric sclera, PERRL Mouth: no lip lesion, mucus membranes moist Cardiovascular: S1S2 reg, no murmur, positive posterior tibial pulse bilateral, 1+ edema Lungs: course bs, no rhonchi, no rales , no accessory muscle use Abdominal: soft, nontender to palpation, no guarding, no appreciable organomegaly Ext: no gross muscle atrophy, no edema, no contractures Neuro: Cranial nerves II through XII grossly intact, moving all 4 extremities independently Psych: Awake, oriented, appropriate affect - Labs CBC & Chem 7: 06/09/17 05:38 06/08/17 04:31 Labs: Abnormal Lab Results - Last 24 Hours (Table) 06/09/17 Range/Units 05:38 WBC 14.6 H (3.8-10.6) k/uL Assessment and Plan (1) STEMI (ST elevation myocardial infarction) Narrative/Plan: ASA, effient, lipitor, metoprolol,aldactone, cardio recs, echo with cardiomyopathy prn nitro Status: Acute (2) Dyslipidemia Narrative/Plan: statin therapy Status: Acute (3) Alcohol abuse Narrative/Plan: cessation, completed thiamine therapy. No signs of withdrawal Status: Acute (4) Nicotine addiction Narrative/Plan: cessation. Status: Acute (5) Ischemic cardiomyopathy Narrative/Plan: EF 35-40%, due to STEMI and cardiac arrest, ASA, lipitor, Lopressor and Aldactone titrated by cardiology, plan for low-dose stress test, plan for LifeVest on discharge, repeat echo in 3 months. Status: Acute (6) Pneumonia Narrative/Plan: strep pyogenous, Zosyn D#8, await CXR in if infiltrate improved then D/C zosyn if perisistent then treat PNA for 10 days. bronchodilators, critical care recommendations appreciated Status: Acute Plan: Resolved: Transamitis MOHSEN cardio pulmonary arrest Elevated CK Ventricular fib ARDS Toxic metabolic encephalopathy - anoxic encephalopathy ruled out. Acute hypoxic respiratory failure Surrogate decision-maker Nasrin [phone] DVT prophylaxis: heparin sc Discused with: nursing, Anticipated discharge: 24-[address]: inpatient rehab vs SNF A total of 35 minutes was spent on the care of this complex patient more than 50 % of the time was spent in counseling and care coordination.
--- NOTE | 2017-06-09 16:27 | XR ---
EXAMINATION TYPE: XR chest 2V DATE OF EXAM: 06/09/2017 COMPARISON: 06/06/2017 HISTORY: Recent cardiac stents and chest pain TECHNIQUE: Frontal and lateral views of the chest are obtained. FINDINGS: Low lung volumes accentuate the pulmonary vasculature. Endotracheal tube and enteric tube have been removed. Left-sided central venous catheter has also been removed in the interim. There is no focal air space opacity, pleural effusion, or pneumothorax seen. The cardiac silhouette size is w ithin normal limits. The osseous structures are intact. IMPRESSION: No acute cardiopulmonary process.
--- NOTE | 2017-06-09 16:35 | P.PN ---
Subjective This is a 41-year-old male who has no major medical history. He apparently had a cardiopulmonary arrest while worsening over the hospital. The patient apparently had ventricular fibrillation was defibrillated. He was resuscitated taken to the catheter builder. Catheterization revealed a totally occluded LAD and he had a stent placed. He is currently here on the ventilator. We tried weaning him this morning. We stopped his propofol. He became very agitated. The patient is currently still on the ventilator. We had to sedate him further with Precedex or dexmedetomidine and also give him a paralytic agent Nimbex. Currently the patient's on the ventilator. He's on the assist control mode at 20, Byam for 50 FiO2 up to 100% PEEP increased to 10. We'll titrate the FiO2 down. Blood gases showed a pO2 of 116 a pCO2 35 and a pH 7.46. This is consistent with hyperoxemia and a mild respiratory alkalosis. The patient's on Precedex currently appointment for mics. The propofol will be turned off. He is getting 9 IV at 75 mL an hour. Amiodarone is been turned off. We'll get some tube feeds started. The patient is seen again today 06/02/2017 in follow-up in the intensive care unit. He remains intubated and on the mechanical ventilator. Current settings are assist control of 20, tidal volume 450, FiO2 70% and a PEEP of 10. Morning blood gases reveal a P O2 of 80, pCO2 of 62 and a pH of 7.25. He remains on Nimbex at 2 mcg/kg/m, Precedex at 0.7 mcg/kg/m, propofol at 50 mcg/kg/m. He has a 0.9 normal saline at 75 mL per hour. He is being nourished with 2 Alejandro HN at 35 mL per hour with a goal of 45 mL per hour. His computed tomography scan of the head was negative for acute abnormalities. EEG did reveal slowing. He was seen by neurology. His prognosis is quite guarded at this point with concerns regarding suspected anoxic brain injury. His pF ratio is 114 and there is also concern of possible development of ARDS with concerns for possible aspiration. His chest x-ray reveals persistent left-sided infiltrate. Sputum culture is pending. Remains on bronchodilators every 4 hours. There is some mild central venous congestion as well. His echocardiogram did reveal moderately impaired left ventricular systolic function with an ejection fraction between 35 and 40%. The patient is seen again today 06/03/2017 in follow-up in the intensive care unit. He remains intubated and on the mechanical ventilator. His current settings are assist control of 26, tidal volume 450, FiO2 of 50% and a PEEP of 13. Initial blood gases revealed a PaO2 of 61, pCO2 of 40 and a pH of 7.44. His FiO2 was increased to 60% and a follow-up blood gas on the 60% and a pO2 had improved to 93, pCO2 of 37 and a pH of 7.46. He remains on 0.9 normal saline at 75 MLS per hour, propofol at 75 mcg/kg/m. He is being nourished with 2 Alejandro HN tube feedings at 35 mL per hour which is his goal. His chest x-ray continues to show a right lower lobe consolidation and some atelectasis in the left lung base. Sputum so far showing strep pyogenes. He does have a temp of 99.5 axillary, no tachycardia and the white count 13. The patient is seen again today 06/04/2017 in follow-up in the intensive care unit. He remains intubated and on the mechanical ventilator. Current vent settings are assist-control 26, tidal volume 450 FiO2 80% previous to that he was on 50% FiO2 with blood gases revealing a pO2 of 71, pCO2 of 38 and a PEEP H of 7.47. He had a episode of desaturations he had increased secretions and he also had emesis around the NG tube. It took some time to get his saturations back up he was on 100% for a while. He remains on 0.9 normal saline at 75 MLS per hour. Propofol at 75 mcg/kg/m. His tube feeds are Vital HP at 45 MLS per hour which is his goal. Tube feeds are currently on hold due to the emesis. A flat plate of the abdomen was performed. His chest x-ray continues to show increasing basilar infiltrates and effusions. Sputum culture shows strep pyogenes. He remains on Zosyn for now. He does have a temp of 100.3. White count 10.2. Patient is seen again today 06/05/2017 in follow-up in the intensive care unit. He remains intubated and on the mechanical ventilator. Current vent settings are assist-control rate of 26 on tidal volume 450, FiO2 40% and a PEEP of 10. His blood gas revealed a PaO2 of 77, pCO2 41 and a pH of 7.47. He was given another daily interruption of sedation and the patient continues to have no purposeful movements. He does not follow simple commands. He is not making good eye contact. It does take a while to re sedate the patient and he also has desaturations that also takes a while to recover. He remains on propofol at 75 mcg/kg/m, 0.9 normal saline at 25 mL per hour and he is being nourished with Yaya HP at 45 mL per hour which is goal. His chest x-ray just shows some mild atelectatic changes in the bases. His CVP is running between 15 and 18. No significant leukocytosis. Currently afebrile. Strep pyogenes final sensitivity is still pending. Maintained on Zosyn. On 06/07/2017, the patient is being seen in follow-up. As mentioned, he was extubated yesterday and his post extubation day #1. He is awake and alert. He is sitting up on a chair and following commands appropriately. No respiratory distress. No cough or sputum production. No fever chills or night sweats. He was given diet and he is able to tolerate his diet without any major difficulties to no reported dysphagia. He is on no pressors. Hemoglobin stable at 13.4. His chest x-ray from yesterday showed limited left basilar infiltrate and small better pleural effusions. No chest x-ray was done this morning. The echocardiogram that was done on 06/02/2017 showed moderately impaired LV function with an ejection fraction of 35-40%. There was no wall motion abnormalities. It was mild concentric left ventricular hypertrophy. Trace mitral regurgitation. Rest of the valves are all within normal limits. He is currently on aspirin and Effient. No bleeding. The patient seen again today 06/08/2017 in follow-up on the selective care unit. He is awake and alert in no acute distress. He is working with physical therapy and has been up ambulating in the hallway with a walker and assistance. He denies any worsening shortness of breath, cough or congestion. He is maintaining good O2 saturations in the mid to upper 90s on room air. He's been afebrile. Hemodynamically stable. No chest discomfort. She is seen again today 06/09/2017 in follow-up on the selective care unit. He continues to do quite well. His been up ambulating in the hallway with assistance. He denies any chest pain, palpitations lightheadedness or dizziness. He has not had any arrhythmias. He denies any shortness of breath, cough or congestion. His chest x-ray shows no acute cardiopulmonary process. He continues to maintain good O2 saturations in the mid 90s on room air. He is hemodynamically stable. Objective - Vital Signs Vital signs: Vital Signs Temp 97.4 F L 06/09/17 12:00 Pulse 79 06/09/17 12:00 Resp 18 06/09/17 12:00 BP 136/76 06/09/17 12:00 Pulse Ox 94 L 06/09/17 12:00 Intake & Output 06/08/17 06/09/17 06/09/17 18:59 06:59 18:59 Intake Total 240 230 118 Output Total 2 2 Balance 238 228 118 Weight 94.9 kg Intake: IV 230 Piperacillin-Tazobactam 3 50 .375 gm In Dextrose/Water 1 50ml.bag @ 12.5 mls/hr IVPB Q8HR JENELLE Rx#: [id number] Sodium Chloride 0.9% 1, 180 000 ml @ 20 mls/hr IV . Q24H JENELLE Rx#:[id number] Oral 240 118 Output: Urine 2 Stool 2 Other: Voiding Method Indwelling Catheter Toilet # Voids 1 1 1 # Bowel Movements 1 ABP, PAP, CO, CI - Last Documented Arterial Blood Pressure 138/60 - Exam The patient appeared well nourished and normally developed. Vital signs as documented. Head exam is unremarkable. No scleral icterus or corneal arcus noted. Neck is without jugular venous distension, thyromegaly, or carotid bruits. Carotid upstrokes are brisk bilaterally. Lungs are clear to auscultation and percussion. Cardiac exam reveals the PMI to be normally sized and situated. Rhythm is regular. First and second heart sounds normal. No murmurs, rubs or gallops. Abdominal exam reveals normal bowel sounds, no masses , no organomegaly and no aortic enlargement. Extremities are nonedematous and both femoral and pedal pulses are normal. - Labs CBC & Chem 7: 06/09/17 05:38 06/08/17 04:31 Labs: Abnormal Lab Results - Last 24 Hours (Table) 06/09/17 Range/Units 05:38 WBC 14.6 H (3.8-10.6) k/uL Assessment and Plan Plan: Impression: #1 Cardiopulmonary arrest secondary to ST segment elevation myocardial infarction with ventricular fibrillation. Status post stenting to the proximal LAD. #2 Acute hypoxic respiratory failure requiring intubation mechanical ventilation secondary to above and with the development of suspected ARDS and right lower lobe consolidation secondary to suspected aspiration pneumonia. Chest x-rays improved. The patient was successfully extubated 3 days ago and currently on room air. #3 Acute systolic congestive heart failure with estimated ejection fraction 35- 40%. #4 Acute anoxic brain injury based on slowing of the EEG and difficulty weaning. #5 Chronic and ongoing tobacco dependence. #6 Daily alcohol use. Plan: The patient was seen and evaluated by Dr. Merino. We'll continue with his current medications. He remains stable from the pulmonary and critical care standpoint. The plan is for low-level stress test in the a.m. He is also scheduled to have a LifeVest placed prior to his discharge per cardiology. We will continue to follow make further recommendations based on his clinical status.
[2017-06-09] MEDS: CHLORHEXIDINE GLUCONATE 15 ML CUP MUCOUS MEM SCH (20:13)
[2017-06-09] MEDS: INSULIN LISPRO (humaLOG) 300 UNIT/3 ML VIAL SQ SCH (20:13)
[2017-06-09] MEDS: ATORVASTATIN 80 MG TAB OG-TUBE SCH (22:25)
[2017-06-10] MEDS: PIPERACILLIN-TAZOBACTAM 3.375 GM in DEXTROSE/WATER 1 50ML.BAG IVPB SCH ×3 (00:49→16:18)
[2017-06-10] MEDS: HEPARIN SODIUM,PORCINE 5,000 UNIT/ML 1 ML VIAL SQ SCH ×3 (00:50→16:19)
[2017-06-10 06:59] LABS: CH 32.9; CHCM 35.9; HDW 3.14; HGB 15.1 gm/dL (13.0-17.5); MCH 31.5 pg (25.0-35.0); MCHC 34.2 g/dL (31.0-37.0); MCV 92.1 fL (80.0-100.0); Mean Platelet Volume 7.3; RBC 4.78 m/uL (4.30-5.90); RDW 14.1 % (11.5-15.5); WBC 11.8 k/uL (3.8-10.6)
[2017-06-10] MEDS: IPRATROPIUM-ALBUTEROL 3 ML NEB INHALATION SCH ×3 (08:19→15:26)
[2017-06-10 08:32] VITALS: RESP 18
[2017-06-10] MEDS ORDERED: SPIRONOLACTONE 25 MG TAB PO SCH (09:00)
[2017-06-10] MEDS: PANTOPRAZOLE 40 MG TABLET PO SCH (10:17)
[2017-06-10] MEDS: ASPIRIN 325 MG TAB PO SCH (10:43)
[2017-06-10] MEDS: PRASUGREL 10 MG TAB PO SCH (10:44)
[2017-06-10] MEDS: METOPROLOL TARTRATE 50 MG TAB PO SCH (10:44)
--- NOTE | 2017-06-10 11:22 | P.PN ---
Subjective Principal diagnosis: Cardiac arrest This is a 41-year-old gentleman who presented to the hospital with an acute cardiac arrest. Patient apparently had ventricular fibrillation and was defibrillated. He underwent cardiac catheterization with stenting of the LAD. Patient is currently being followed on the telemetry unit. Hemodynamically stable. Blood pressure 128/80. Heart rate in the 90s. White blood cell count 14.6, hemoglobin 14.7. Denies chest pain or difficulty in breathing. We will increase his metoprolol tartrate and Aldactone today. Have him up ambulating as much as possible in the hallway today. Scheduled for a low-level stress test tomorrow. It was explained to the patient that we will also have him placed with a LifeVest prior to discharge. 06/10/2017 Patient seen and examined this morning, he's been up ambulating in the hallway most of the morning without any difficulty. Denies any chest discomfort. He did undergo a regular stress test today. Blood Presssure 120/70 heart rate in the 90s. LifeVest is also been ordered. Objective - Vital Signs Vital signs: Vital Signs Temp 98.3 F 06/10/17 08:00 Pulse 91 06/10/17 08:00 Resp 18 06/10/17 08:00 BP 120/78 06/10/17 08:00 Pulse Ox 96 06/10/17 08:00 Intake & Output 06/09/17 06/10/17 06/10/17 18:59 06:59 18:59 Intake Total 358 340 Balance 358 340 Weight 93.6 kg 93.44 kg Intake: IV 340 Piperacillin-Tazobactam 3 100 .375 gm In Dextrose/Water 1 50ml.bag @ 12.5 mls/hr IVPB Q8HR JENELLE Rx#: [id number] Sodium Chloride 0.9% 1, 240 000 ml @ 20 mls/hr IV . Q24H JENELLE Rx#:[id number] Oral 358 Other: Voiding Method Toilet Toilet # Voids 1 2 ABP, PAP, CO, CI - Last Documented Arterial Blood Pressure 138/60 - Exam PHYSICAL EXAMINATION: HEENT: Head is atraumatic, normocephalic. Pupils equal, round. Neck is supple. There is no elevated jugular venous pressure. HEART EXAMINATION: Heart S1, S2 normal. No murmur or gallop heard. CHEST EXAMINATION: Lungs are clear to auscultation and precussion. No chest wall tenderness is noted on palpation or with deep breathing. ABDOMEN: Soft, nontender. Bowel sounds are heard. No organomegaly noted. EXTREMITIES: 2+ peripheral pulses with no evidence of peripheral edema and no calf tenderness noted. NEUROLOGIC patient is awake, alert and oriented -3. . - Labs CBC & Chem 7: 06/10/17 06:32 06/08/17 04:31 Labs: Abnormal Lab Results - Last 24 Hours (Table) 06/10/17 Range/Units 06:32 WBC 11.8 H (3.8-10.6) k/uL Plt Count 456 H (150-450) k/uL Assessment and Plan (1) Presence of stent in LAD coronary artery Status: Acute (2) Alcohol abuse Status: Acute (3) Anoxic encephalopathy Status: Acute (4) Cardiopulmonary arrest with successful resuscitation Status: Acute (5) Dyslipidemia Status: Acute (6) Ischemic cardiomyopathy Status: Acute (7) Nicotine addiction Status: Acute (8) MOHSEN (acute kidney injury) Status: Resolved (9) Ventricular fibrillation Status: Resolved Plan: From cardiology's perspective, we will review the results of the stress test. Awaiting LifeVest today anticipate possible discharge home today. 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 Him and his both been educated regarding the importance of nicotine and EtOH cessation and educated regarding the medications. Prescriptions have been provided. DNP note has been reviewed, I agree with a documented findings and plan of care. Patient was seen and examined.
--- NOTE | 2017-06-10 11:40 | P.PN ---
Progress Note - Text Patient is doing well from a cardiac standpoint. He is ablating in the hallways. We will look to telemetry to see if he has any ventricular arrhythmias but he did undergo stress testing. He walked on a Ethan protocol for 6 minutes he had no ventricular arrhythmias. He does have persistent ST elevation and he has severe cardio myopathy following his RI. He has a history of VF arrest out of hospital. The plan is maximal medical treatment, LifeVest for the next 3 months, follow-up with trench pipe layer helper in [place] on Wednesday next week, no smoking no alcohol. He is at high risk of cardio vascular events including recurrent VF and therefore I would protect him for the next 3 months with a LifeVest. Please see full dictation by Dr. york
[2017-06-10 11:46] VITALS: BMI 30.4
--- NOTE | 2017-06-10 13:46 | P.PN ---
Subjective This is a 41-year-old male who has no major medical history. He apparently had a cardiopulmonary arrest while worsening over the hospital. The patient apparently had ventricular fibrillation was defibrillated. He was resuscitated taken to the laboratory courier. Catheterization revealed a totally occluded LAD and he had a stent placed. He is currently here on the ventilator. We tried weaning him this morning. We stopped his propofol. He became very agitated. The patient is currently still on the ventilator. We had to sedate him further with Precedex or dexmedetomidine and also give him a paralytic agent Nimbex. Currently the patient's on the ventilator. He's on the assist control mode at 20, Byam for 50 FiO2 up to 100% PEEP increased to 10. We'll titrate the FiO2 down. Blood gases showed a pO2 of 116 a pCO2 35 and a pH 7.46. This is consistent with hyperoxemia and a mild respiratory alkalosis. The patient's on Precedex currently appointment for mics. The propofol will be turned off. He is getting 9 IV at 75 mL an hour. Amiodarone is been turned off. We'll get some tube feeds started. The patient is seen again today 06/02/2017 in follow-up in the intensive care unit. He remains intubated and on the mechanical ventilator. Current settings are assist control of 20, tidal volume 450, FiO2 70% and a PEEP of 10. Morning blood gases reveal a P O2 of 80, pCO2 of 62 and a pH of 7.25. He remains on Nimbex at 2 mcg/kg/m, Precedex at 0.7 mcg/kg/m, propofol at 50 mcg/kg/m. He has a 0.9 normal saline at 75 mL per hour. He is being nourished with 2 Alejandro HN at 35 mL per hour with a goal of 45 mL per hour. His computed tomography scan of the head was negative for acute abnormalities. EEG did reveal slowing. He was seen by neurology. His prognosis is quite guarded at this point with concerns regarding suspected anoxic brain injury. His pF ratio is 114 and there is also concern of possible development of ARDS with concerns for possible aspiration. His chest x-ray reveals persistent left-sided infiltrate. Sputum culture is pending. Remains on bronchodilators every 4 hours. There is some mild central venous congestion as well. His echocardiogram did reveal moderately impaired left ventricular systolic function with an ejection fraction between 35 and 40%. The patient is seen again today 06/03/2017 in follow-up in the intensive care unit. He remains intubated and on the mechanical ventilator. His current settings are assist control of 26, tidal volume 450, FiO2 of 50% and a PEEP of 13. Initial blood gases revealed a PaO2 of 61, pCO2 of 40 and a pH of 7.44. His FiO2 was increased to 60% and a follow-up blood gas on the 60% and a pO2 had improved to 93, pCO2 of 37 and a pH of 7.46. He remains on 0.9 normal saline at 75 MLS per hour, propofol at 75 mcg/kg/m. He is being nourished with 2 Alejandro HN tube feedings at 35 mL per hour which is his goal. His chest x-ray continues to show a right lower lobe consolidation and some atelectasis in the left lung base. Sputum so far showing strep pyogenes. He does have a temp of 99.5 axillary, no tachycardia and the white count 13. The patient is seen again today 06/04/2017 in follow-up in the intensive care unit. He remains intubated and on the mechanical ventilator. Current vent settings are assist-control 26, tidal volume 450 FiO2 80% previous to that he was on 50% FiO2 with blood gases revealing a pO2 of 71, pCO2 of 38 and a PEEP H of 7.47. He had a episode of desaturations he had increased secretions and he also had emesis around the NG tube. It took some time to get his saturations back up he was on 100% for a while. He remains on 0.9 normal saline at 75 MLS per hour. Propofol at 75 mcg/kg/m. His tube feeds are Vital HP at 45 MLS per hour which is his goal. Tube feeds are currently on hold due to the emesis. A flat plate of the abdomen was performed. His chest x-ray continues to show increasing basilar infiltrates and effusions. Sputum culture shows strep pyogenes. He remains on Zosyn for now. He does have a temp of 100.3. White count 10.2. Patient is seen again today 06/05/2017 in follow-up in the intensive care unit. He remains intubated and on the mechanical ventilator. Current vent settings are assist-control rate of 26 on tidal volume 450, FiO2 40% and a PEEP of 10. His blood gas revealed a PaO2 of 77, pCO2 41 and a pH of 7.47. He was given another daily interruption of sedation and the patient continues to have no purposeful movements. He does not follow simple commands. He is not making good eye contact. It does take a while to re sedate the patient and he also has desaturations that also takes a while to recover. He remains on propofol at 75 mcg/kg/m, 0.9 normal saline at 25 mL per hour and he is being nourished with Yaya HP at 45 mL per hour which is goal. His chest x-ray just shows some mild atelectatic changes in the bases. His CVP is running between 15 and 18. No significant leukocytosis. Currently afebrile. Strep pyogenes final sensitivity is still pending. Maintained on Zosyn. On 06/07/2017, the patient is being seen in follow-up. As mentioned, he was extubated yesterday and his post extubation day #1. He is awake and alert. He is sitting up on a chair and following commands appropriately. No respiratory distress. No cough or sputum production. No fever chills or night sweats. He was given diet and he is able to tolerate his diet without any major difficulties to no reported dysphagia. He is on no pressors. Hemoglobin stable at 13.4. His chest x-ray from yesterday showed limited left basilar infiltrate and small better pleural effusions. No chest x-ray was done this morning. The echocardiogram that was done on 06/02/2017 showed moderately impaired LV function with an ejection fraction of 35-40%. There was no wall motion abnormalities. It was mild concentric left ventricular hypertrophy. Trace mitral regurgitation. Rest of the valves are all within normal limits. He is currently on aspirin and Effient. No bleeding. The patient seen again today 06/08/2017 in follow-up on the selective care unit. He is awake and alert in no acute distress. He is working with physical therapy and has been up ambulating in the hallway with a walker and assistance. He denies any worsening shortness of breath, cough or congestion. He is maintaining good O2 saturations in the mid to upper 90s on room air. He's been afebrile. Hemodynamically stable. No chest discomfort. She is seen again today 06/09/2017 in follow-up on the selective care unit. He continues to do quite well. His been up ambulating in the hallway with assistance. He denies any chest pain, palpitations lightheadedness or dizziness. He has not had any arrhythmias. He denies any shortness of breath, cough or congestion. His chest x-ray shows no acute cardiopulmonary process. He continues to maintain good O2 saturations in the mid 90s on room air. He is hemodynamically stable. On 06/10/2017 the patient is seen again today on the selective care unit. He is doing very well. His been up ambulating in the hallway. He did undergo a low level stress test without significant arrhythmias. He walked for approximate 6 minutes. The plan is for a LifeVest placement. He is going home with home care instead of inpatient rehabilitation. He currently is awake and alert in no acute distress he denies any shortness of breath, cough or congestion. No chest pain, palpitations lightheadedness or dizziness. Objective - Vital Signs Vital signs: Vital Signs Temp 98.2 F 06/10/17 11:29 Pulse 96 06/10/17 11:29 Resp 18 06/10/17 11:29 BP 110/60 06/10/17 11:29 Pulse Ox 97 06/10/17 11:29 Intake & Output 06/09/17 06/10/17 06/10/17 18:59 06:59 18:59 Intake Total 358 340 Balance 358 340 Weight 93.6 kg 93.44 kg Intake: IV 340 Piperacillin-Tazobactam 3 100 .375 gm In Dextrose/Water 1 50ml.bag @ 12.5 mls/hr IVPB Q8HR JENELLE Rx#: [id number] Sodium Chloride 0.9% 1, 240 000 ml @ 20 mls/hr IV . Q24H JENELLE Rx#:[id number] Oral 358 Other: Voiding Method Toilet Toilet # Voids 1 2 2 ABP, PAP, CO, CI - Last Documented Arterial Blood Pressure 138/60 - Exam The patient appeared well nourished and normally developed. Vital signs as documented. Head exam is unremarkable. No scleral icterus or corneal arcus noted. Neck is without jugular venous distension, thyromegaly, or carotid bruits. Carotid upstrokes are brisk bilaterally. Lungs are clear to auscultation and percussion. Cardiac exam reveals the PMI to be normally sized and situated. Rhythm is regular. First and second heart sounds normal. No murmurs, rubs or gallops. Abdominal exam reveals normal bowel sounds, no masses , no organomegaly and no aortic enlargement. Extremities are nonedematous and both femoral and pedal pulses are normal. - Labs CBC & Chem 7: 06/10/17 06:32 06/08/17 04:31 Labs: Abnormal Lab Results - Last 24 Hours (Table) 06/10/17 Range/Units 06:32 WBC 11.8 H (3.8-10.6) k/uL Plt Count 456 H (150-450) k/uL Assessment and Plan Plan: Impression: #1 Cardiopulmonary arrest secondary to ST segment elevation myocardial infarction with ventricular fibrillation. Status post stenting to the proximal LAD. #2 Acute hypoxic respiratory failure requiring intubation mechanical ventilation secondary to above and with the development of suspected ARDS and right lower lobe consolidation secondary to suspected aspiration pneumonia. Chest x-rays improved. The patient was successfully extubated 3 days ago and currently on room air. #3 Acute systolic congestive heart failure with estimated ejection fraction 35- 40%. #4 Acute anoxic brain injury based on slowing of the EEG and difficulty weaning. #5 Chronic and ongoing tobacco dependence. #6 Daily alcohol use. Plan: The patient was seen and evaluated by Dr. Merino. He remains stable from the pulmonary and critical care standpoint. He is also scheduled to have a LifeVest placed prior to his discharge today. He will follow-up in our office in 1-2 weeks' time. We will repeat a chest x-ray then. He and his are both encouraged to call sooner if any pulmonary symptoms or other questions or concerns. We will continue to follow make further recommendations based on his clinical status.
[2017-06-10] MEDS: LISINOPRIL 10 MG TAB PO SCH (13:50)
[2017-06-10] MEDS: MULTIVITAMINS, THERA 1 EACH TAB PO SCH (13:50)
[2017-06-10 16:49] VITALS: BP 127/82; PULSE 92; TEMP 97.2
--- NOTE | 2017-06-10 17:47 | P.DS ---
Providers Date of admission: 05/31/17 11:30 Expected date of discharge: 06/10/17 Attending physician: Veronica Yancey DO Consults: 05/31/17 11:15 Consult Physician Urgent Consulting Provider: Cristian Loco Consult Reason/Comments: stemi Do you want consulting provider notified?: Yes 05/31/17 13:11 Consult Physician Routine Consulting Provider: [facility] Consult Reason/Comments: Post Interventional patient Do you want consulting provider notified?: Already Contacted 05/31/17 13:29 Consult Physician Urgent Consulting Provider: Sumaya Vaughn Consult Reason/Comments: ICU Vent Management Do you want consulting provider notified?: Yes 06/01/17 10:46 Consult Physician Urgent Consulting Provider: Julisa Allen Consult Reason/Comments: coded, neuro changes Do you want consulting provider notified?: Yes 06/03/17 08:53 Consult Physician Routine Consulting Provider: Petey Jasso Consult Reason/Comments: Trach and PEG Do you want consulting provider notified?: Already Contacted 06/08/17 12:01 Consult Physician Routine Consulting Provider: Kiel Whalen Consult Reason/Comments: inpatient rehab Do you want consulting provider notified?: Yes Primary care physician: Physician Nonstaff - Discharge Diagnosis(es) (1) STEMI (ST elevation myocardial infarction) Current Visit: Yes Status: Acute (2) Dyslipidemia Current Visit: Yes Status: Acute (3) Alcohol abuse Current Visit: Yes Status: Acute (4) Nicotine addiction Current Visit: Yes Status: Acute (5) Ischemic cardiomyopathy Current Visit: Yes Status: Acute (6) Pneumonia Current Visit: Yes Status: Acute (7) Metabolic encephalopathy Current Visit: Yes Status: Acute (8) Acute respiratory failure with hypoxia Current Visit: Yes Status: Acute (9) ARDS (adult respiratory distress syndrome) Current Visit: Yes Status: Acute (10) Cardiopulmonary arrest with successful resuscitation Current Visit: Yes Status: Acute (11) Elevated CK Current Visit: Yes Status: Acute (12) Stented coronary artery Current Visit: Yes Status: Acute (13) Transaminitis Current Visit: Yes Status: Acute (14) MOHSEN (acute kidney injury) Current Visit: Yes Status: Resolved (15) Ventricular fibrillation Current Visit: Yes Status: Resolved Hospital Course: Patient is a 41-year-old male with a past medical history of tobacco abuse and alcohol who was found collapsed on his job site. EMS was notified and he was found to be in ventricular fibrillation without a pulse. He had defibrillation 2 with return of spontaneous circulation. It is unclear exactly how long his down time was but it appears to be less than 10-15 minutes. Initial EKG showed ST segment elevation. He was brought to the ER and a code STEMI was called. He was taken to the microbiology lab manager and had a drug- eluting stent placed to the LAD it had a 100% occlusion. He was admitted to ICU and was intubated. He was found to have an elevated total cholesterol level , elevated liver enzymes, elevated creatinine. Critical care was consulted for ventilator management. He was also noted to have a history of alcohol use. On the morning of 06/01 his sedation was held and he was awake and followed commands for me. He became increasingly agitated and then had to be placed on sedation. His oxygen requirement elevated. He was also started on a Nimbex drip. His blood pressure remained controlled. He was seen by neurology and had an EEG done which showed diffuse slowing, head CT was negative, neurology will continue to follow. There were unable to wean due to developing PNA and ARDS. His ventilator support was able to be weaned down by 06/05 with transition to pressure control. He had vomiting with his tube feeds and nasogastric tube on 06/04, KUB was done which was negative, this resolved spontaneously. He continued to struggle with agitation and possible component of ETOH withdrawal or anoxic encephalopathy. His mentation improved and he was successfully extubated on 06/06. He had a quick increase in strength and worked with physical therapy. He developed a leukocytosis but CXR was improving, no clinical signs of infection and UA was negative for infection. His white blood cell count continued to down trend without adjustment in antibiotics. He completed a seven-day course of Zosyn for possible aspiration pneumonia. He was evaluated by inpatient rehabilitation who is recommending possible inpatient rehabilitation. However he had quick improvement in his strength. He will continue to need physical therapy, occupational therapy, and speech therapy at discharge. Cardiology has increased his metoprolol and Aldactone. Neurology evaluated the patient post extubation and felt likely due to metabolic encephalopathy and not anoxic encephalopathy. He had a low level stress test was able to walk 6 minutes without significant chest pain and arrhythmia. He had a LifeVest placed prior to discharge. He was discharged home in stable condition. He will need to follow up with cardiology and a primary care physician. He was instructed that he needs to abstain from tobacco and alcohol use in order to help restore his ejection fraction, as it was found to be 35-40% Patient seen and examined at bedside. He denies any chest pain, shortness of breath, nausea, vomiting, diaphoresis. He states he felt exhausted after his stress test. at bedside and all questions answered. General: non toxic, no distress, appears at stated age Derm: no rashes, no lesions Head: atraumatic, normocephalic, symmetric Eyes: EOMI, no lid lag, anicteric sclera ENT: no post nasal drip, no thrush Mouth: no lip lesion, mucus membranes moist Cardiovascular: S1S2 reg, no murmur, positive posterior tibial pulse bilateral, Lungs: CTA bilateral, no rhonchi, no rales , no accessory muscle use Abdominal: soft, nontender to palpation, no guarding, no appreciable organomegaly Ext: no gross muscle atrophy, no edema, no contractures Neuro: CN II-XI grossly intact, no focal neuro deficits Psych: Alert, oriented, appropriate affect Total of 45 minutes was spent preparing this discharge summary. Pertinent Studies: Echocardiogram: 06/02: Ejection fraction between 35-40%. EEG 06/04 and 06/01 with diffuse widespread slowing and disturbance in cerebral function Brain CT 06/01 and 06/[address] brain with paranasal sinus disease Procedures: Cardiac cath with stent to the LAD 06/01/2017 Patient Condition at Discharge: Critical Plan - Discharge Summary New Discharge Prescriptions: New Atorvastatin [Lipitor] 80 mg OG-TUBE HS #30 tab Lisinopril [Zestril] 10 mg PO DAILY@1300 #30 tab Metoprolol Tartrate [Lopressor] 100 mg PO BID #603 tab Prasugrel [Effient] 10 mg PO DAILY #30 tab Spironolactone [Aldactone] 50 mg PO DAILY #30 tab Continue Aspirin 162 mg PO ONCE Discharge Medication List Aspirin 162 mg PO ONCE 05/31/17 [History] Atorvastatin [Lipitor] 80 mg OG-TUBE HS #30 tab 06/10/17 [Rx] Lisinopril [Zestril] 10 mg PO DAILY@1300 #30 tab 06/10/17 [Rx] Metoprolol Tartrate [Lopressor] 100 mg PO BID #603 tab 06/10/17 [Rx] Prasugrel [Effient] 10 mg PO DAILY #30 tab 06/10/17 [Rx] Spironolactone [Aldactone] 50 mg PO DAILY #30 tab 06/10/17 [Rx] Follow up Appointment(s)/Referral(s): [facility], [NON-STAFF] - Nonstaff,Physician [Primary Care Provider] - 1-2 days Julisa Allen MD [STAFF PHYSICIAN] - As Needed Patient Instructions/Handouts: *Surgery [facility] - After Heart Catheterization - [employer] Instructions, Myocardial Infarction (DC), Acute Coronary Syndrome (DC) Activity/Diet/Wound Care/Special Instructions: Follow up with Finish Production Manager Dr. Pugh - [address] [place] [address] # - Monday 06/18 @9 a.m. [facility] [phone] Arenas next Wednesday as scheduled. Activity as tolerated Heart health diet No driving until cleared by your family doctor. Discharge Disposition: HOME WITH HOME HEALTH SERVICES
--- NOTE | 2017-06-10 19:44 | P.PN ---
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 When EMS arrived at the job site the patient was in ventricular fibrillation without a pulse. He was defibrillated 2 and was transported to the emergency room where he was intubated. He was then taken to the cardiac [facility] [employer] Operator as his EKG did reveal ST segment elevation. He had a drug-eluting stent placed in the LAD which had 100% occlusion. He was then stabilized and then transferred to the intensive care unit for further management. The patient remains intubated on the ventilator. He remains on a Diprivan drip. Apparently when they have attempted to wean him he becomes very agitated and combative. He did undergo a routine EEG on admission which was negative for any acute changes. He underwent a routine EEG initially which did reveal diffuse slowing. We are recommending a follow-up EEG to be done tomorrow morning for comparison and long -term prognosis. The patient does respond to painful stimuli only minimally. Cardiology continues to follow him closely as well. He is status post recent anterior wall DE. He is showing very slow recovery in terms of his neurological status. For this reason we have recommended a follow-up EEG to be done today for comparison to his previous study. His has been updated on his overall poor neurological status at this time. She is aware that his prognosis remains very guarded. He will need daily assessment of his overall neurological status to see if he is making improvement. Patient does seem to be slightly improved in terms of his responsiveness. As noted his EEG did show slight worsening as compared to his initial EEG. This was discussed at length with the patient's at bedside. Clinically however he is showing improvement in his overall mental status. We will need to wait to see if this patient can be weaned off of the ventilator. He does seem to be more alert and may benefit from extubation. We will await further recommendations from pulmonary medicine. According to his today in the ICU he did show some changes this morning with the increase in agitation. Apparently he was biting on his ET tube. A special bite device was placed and this is making him slightly more agitated. According to the ICU nurse was concerned the patient may be showing signs of posturing. He was sent for a stat computed tomography scan of the brain earlier today which came back negative for any evidence of acute hemorrhage or stroke. There was no evidence of any cerebral edema. We will continue close neurological follow-up with this patient in the intensive care unit. The patient was extubated late Wednesday afternoon. His mental status has shown significant improvement since extubation. We will continue close neurological follow-up of this patient on the medical floor. Case was discussed this evening with the patient and his at bedside. The patient states that he continues to show improvement in his overall strength and was able to walk with the use of a walker today in the hallway without much difficulty. She has noted towards the end of the day he become slightly confused. All of their questions were answered. His is very happy with his significant improvement in his overall mental status and neurological status. The patient is doing very well. He has been up and ambulating in the hallway. He did undergo a low level stress test without significant arrhythmias. He walked for approximately 6 minutes. Cardiology is recommending that the patient be placed into a Lifevest for further treatment. The discharge plan is for the patient to go home with home care. He has not had any chest pain or palpitations or episodes of lightheadedness or dizziness. Overall he seems to be doing quite well. We will continue close neurological follow-up of this patient during this admission. His overall prognosis at this time remains very guarded. Objective - Vital Signs Vital signs: Vital Signs Temp 97.2 F L 06/10/17 16:00 Pulse 92 06/10/17 16:00 Resp 18 06/10/17 16:00 BP 127/82 06/10/17 16:00 Pulse Ox 98 06/10/17 16:00 Intake & Output 06/10/17 06/10/17 06/11/17 06:59 18:59 06:59 Intake Total 340 Balance 340 Weight 93.6 kg 93.44 kg Intake: IV 340 Piperacillin-Tazobactam 3 100 .375 gm In Dextrose/Water 1 50ml.bag @ 12.5 mls/hr IVPB Q8HR JENELLE Rx#: [id number] Sodium Chloride 0.9% 1, 240 000 ml @ 20 mls/hr IV . Q24H JENELLE Rx#:[id number] Other: Voiding Method Toilet # Voids 2 2 ABP, PAP, CO, CI - Last Documented Arterial Blood Pressure 138/60 - Exam Physical Examination: PHYSICAL EXAMINATION: Patient is resting comfortably in bed. VITAL SIGNS: Blood pressure is [127/82]. Heart rate is [92]. Respiration is [18] . Temperature is [97.2]. HEENT: Head is atraumatic, neck is supple, there were no carotid bruits. CHEST: Lungs are clear to auscultation and percussion. CARDIAC: S1, S2 normal rate and rhythm. There is no murmur. ABDOMEN: Soft and nontender. Bowel sounds are present. EXTREMITIES: There is no pedal edema. Peripheral pulses are present. Neurological examination: Patient is able to answer simple questions. He is alert and oriented 3. His speech is fluent with no evidence of any aphasia or dysarthria. His memory and intellectual functions are much improved. Cranial nerve examination: Cranial nerves II through XII are grossly intact. Motor examination: There was no pronator drift. Muscle tone is normal. Muscle strength testing reveals 3+/5 strength throughout. Sensory examination was intact. Deep tendon reflexes: The DTRs are 1+ and symmetric. Plantar responses flexor bilaterally. - Labs CBC & Chem 7: 06/10/17 06:32 06/08/17 04:31 Labs: Abnormal Lab Results - Last 24 Hours (Table) 06/10/17 Range/Units 06:32 WBC 11.8 H (3.8-10.6) k/uL Plt Count 456 H (150-450) k/uL Assessment and Plan (1) Anoxic encephalopathy Status: Acute Code(s): G93.1 - ANOXIC BRAIN DAMAGE, NOT ELSEWHERE CLASSIFIED (2) Cardiopulmonary arrest with successful resuscitation Status: Acute Code(s): I46.9 - CARDIAC ARREST, CAUSE UNSPECIFIED (3) STEMI (ST elevation myocardial infarction) Status: Acute Code(s): I21.3 - ST ELEVATION (STEMI) MYOCARDIAL INFARCTION OF [facility] SITE (4) Stented coronary artery Status: Acute Code(s): Z95.5 - PRESENCE OF CORONARY ANGIOPLASTY IMPLANT AND GRAFT Plan: This patient is a 41-year-old male who initially was admitted to the intensive care unit after suffering an acute cardiac arrest. He was taken to the aquatic laborer where he was found to have complete occlusion of the LAD. He underwent a stent placement and was transferred to the intensive care unit. He was intubated at that time. This afternoon he was able to be extubated off of the ventilator. He is doing much better and is now alert and able to answer simple questions. He did undergo recent follow-up computed tomography scan of the brain which failed to reveal any acute changes. Patient is now conversing and is able to answer most all questions without any difficulties. The patient and his were updated on his overall condition today at the bedside in the ICU. If he continues to do well most likely he will be able to transfer out of the ICU tomorrow. We will continue close neurological follow-up with this patient in the intensive care unit. This patient has suffered acute anoxic encephalopathy following cardiac arrest and is showing signs of significant improvement. This patient's current findings are consistent with a metabolic / hypoxic encephalopathy following cardiac arrest. He does continue to show improvement in his overall cognition. We will continue to monitor his condition closely with the other specialists. We will continue close neurological follow-up with this patient during this admission. Case was discussed at length with the patient and his . All of their questions were answered. She is aware of his still guarded condition. Hopefully he will continue to show cognitive improvement day by day. Patient has been cleared for discharge home today with home care. Cardiology is recommended that he be discharged with the use of a LifeVest. Neurologically he remains very much intact. He may follow-up in the outpatient neurology clinic in 3-4 weeks. We will continue to monitor his neurological status closely during this admission. His overall prognosis at this time remains fair.
--- NOTE | 2017-06-10 22:57 | EST ---
EXERCISE STRESS Date of Service: Mr. Franks is a 41 year old gentleman with history of PA status post PTCA being sent for evaluation of cardiac arrhythmias. Baseline EKG showed sinus rhythm with ST segment elevation in 1, AVL and also V1 and V2. The patient's blood pressure at rest is 116/90 with a pulse rate of 99. The patient walked on Ethan protocol for 6 minutes achieving a maximum heart rate of 156 with a blood pressure of 165/113. EKG showed slightly more prominent ST segment changes. The patient did not experience any chest pain but did feel fatigue. FINAL IMPRESSION: 1. Nondiagnostic stress test because of baseline EKG abnormalities. 2. The patient did not experience any chest pain. 3. The patient complained of fatigue. MMODL / IJN: [id number] /
== END 2017-06-10 18:50 | disposition home health service (06) | DRG 246 ==
LOC: EC 11:11 → 6ICU 11:30 → 6SEL 06-08 08:22
PROVIDERS: ADMIT Internal Medicine; ATTEND Internal Medicine
PROC: 4A023N7 Measurement of Cardiac Sampling and Pressure, Left Heart, Percutaneous Approach (ICD-10-PCS; 2017-05-31)
PROC: B2111ZZ Fluoroscopy of Multiple Coronary Arteries using Low Osmolar Contrast (ICD-10-PCS; 2017-05-31)
PROC: 0D9670Z Drainage of Stomach with Drainage Device, Via Natural or Artificial Opening (ICD-10-PCS; 2017-05-31)
PROC: 3E0G76Z Introduction of Nutritional Substance into Upper GI, Via Natural or Artificial Opening (ICD-10-PCS; 2017-05-31)
PROC: 027034Z Dilation of Coronary Artery, One Artery with Drug-eluting Intraluminal Device, Percutaneous Approach (ICD-10-PCS; principal; 2017-05-31 11:45)
PROC: 5A1955Z Respiratory Ventilation, Greater than 96 Consecutive Hours (ICD-10-PCS; 2017-05-31 11:45)
PROC: 4A133J1 Monitoring of Arterial Pulse, Peripheral, Percutaneous Approach (ICD-10-PCS; 2017-06-04)
PROC: 4A133B1 Monitoring of Arterial Pressure, Peripheral, Percutaneous Approach (ICD-10-PCS; 2017-06-04)
PROC: 03HY32Z Insertion of Monitoring Device into Upper Artery, Percutaneous Approach (ICD-10-PCS; 2017-06-04)
PROC: 02HV33Z Insertion of Infusion Device into Superior Vena Cava, Percutaneous Approach (ICD-10-PCS; 2017-06-04)
DX: I21.09 ST elevation (STEMI) myocardial infarction involving other coronary artery of anterior wall (principal); I46.9 Cardiac arrest, cause unspecified; I49.01 Ventricular fibrillation; J96.01 Acute respiratory failure with hypoxia; I50.21 Acute systolic (congestive) heart failure; J69.0 Pneumonitis due to inhalation of food and vomit; G93.41 Metabolic encephalopathy; N17.9 Acute kidney failure, unspecified; E87.3 Alkalosis; J98.11 Atelectasis; I25.5 Ischemic cardiomyopathy; I25.10 Atherosclerotic heart disease of native coronary artery without angina pectoris; I25.2 Old myocardial infarction; F12.90 Cannabis use, unspecified, uncomplicated; F17.210 Nicotine dependence, cigarettes, uncomplicated; F10.10 Alcohol abuse, uncomplicated; E78.5 Hyperlipidemia, unspecified; R26.9 Unspecified abnormalities of gait and mobility; F41.9 Anxiety disorder, unspecified; Z79.82 Long term (current) use of aspirin; Z82.49 Family history of ischemic heart disease and other diseases of the circulatory system
CPT/HCPCS: 36415; 36600; 70450; 70460; 71010; 71020; 74000; 80048; 80053; 80061; 80306; 81001; 82247; 82550; 82553; 82805; 83036; 83735; 84100; 84132; 84439; 84443; 84450; 84460; 84484; 85025; 85027; 85610; 85730; 87070; 87205; 93005; 93017; 93306; 93458; 94002; 94003; 94640; 95816; 96374; 96375; 99291